=== PATIENT | female | born 1955 | race American Indian/Alaskan Native ===

== ENCOUNTER 2017-06-09 09:21 | Emergency (ER) | payer MEDICARE ==
[2017-06-09 09:22] VITALS: BMI 31.6
[2017-06-09 09:32] VITALS: O2SAT 100
[2017-06-09] MEDS ORDERED: Albuterol-Ipratrop 3 mg / 0.5 (3 ml) UD INH STA (09:33)
[2017-06-09] MEDS ORDERED: Albuterol-Ipratrop 3 mg / 0.5 (3 ml) UD ONE ×2 (09:37→11:23)
--- NOTE | 2017-06-09 10:38 | C.PDOC ---
History Of Present Illness 61 year old female presents to the ED with complaints of exacerbation of asthma for three days with cough and congestion. Patient notes shortness of breath that began last night which prompted visit. She also complaints of left wrist pain. Patient denies trauma, injury, numbness, tingling, swelling, fever, or chest pain. Time Seen by Provider: 06/09/17 10:14 Chief Complaint (Nursing): Shortness Of Breath History Per: Patient History/Exam Limitations: no limitations Onset/Duration Of Symptoms: Days (3 days ), Worse Since (last night ) Current Symptoms Are (Timing): Still Present Quality: "Pain" (left wrist ) Current Respiratory Medications: See Home Med List Associated Symptoms: denies: Fever, Chills, Chest Pain Recent travel outside of the [place]: No Past Medical History Reviewed: Historical Data, Nursing Documentation, Vital Signs Vital Signs: Last Vital Signs Temp 98.6 F 06/09/17 12:29 Pulse 90 06/09/17 12:29 Resp 18 06/09/17 12:29 BP 115/70 06/09/17 12:29 Pulse Ox 100 06/09/17 12:29 - Medical History PMH: Anxiety, Asthma, COPD, Diabetes (Doesn't know the name of medications), Fractures (TOE/NO SURGERY), HTN, Hypercholesterolemia Surgical History: Endoscopy - [facility] Procedures NEBULIZER THERAPY (01/08/04) Family History: States: Unknown Family Hx - Social History Hx Tobacco Use: Yes Hx Alcohol Use: Yes (occassional) Hx Substance Use: No - Immunization History Hx Tetanus Toxoid Vaccination: No Hx Influenza Vaccination: Yes Hx Pneumococcal Vaccination: Yes Review Of Systems Except As Marked, All Systems Reviewed And Found Negative. Constitutional: Negative for: Fever, Chills Respiratory: Positive for: Cough, Shortness of Breath Gastrointestinal: Negative for: Nausea, Vomiting, Abdominal Pain, Diarrhea Musculoskeletal: Positive for: Hand Pain (left wrist pain ) Neurological: Negative for: Weakness, Numbness Physical Exam - Physical Exam Appears: Non-toxic, No Acute Distress Skin: Warm, Dry, No Rash Head: Atraumatic, Normacephalic Eye(s): bilateral: Normal Inspection, PERRL, EOMI Oral Mucosa: Moist Throat: No Erythema, No Exudate Neck: Normal ROM, Supple Chest: Symmetrical, No Deformity Cardiovascular: Rhythm Regular, No Murmur Respiratory: No Accessory Muscle Use, No Rales, No Rhonchi, No Stridor, Wheezing (bilateral expiratory wheeze ) Gastrointestinal/Abdominal: Soft, No Tenderness, No Distention, No Guarding, No Rebound Extremity: Normal ROM (of the left wrist ), No Tenderness, Capillary Refill ( good capillary refill, less than two seconds ), No Deformity, No Swelling Pulses: Left Radial: Normal, Right Radial: Normal Neurological/Psych: Oriented x3, Normal Speech, Normal Cranial Nerves, Normal Motor, Normal Sensation Gait: Steady ED Course And Treatment - Laboratory Results Result Diagrams: 06/09/17 11:21 06/09/17 11:21 O2 Sat by Pulse Oximetry: 100 (RA) Pulse Ox Interpretation: Normal Progress Note: EKG, CXR, and blood work were ordered. Patient was given albuterol treatment at triage. Patient was given Medrol and IV fluids. Medical Decision Making Medical Decision Making: the wrist exam was normal at this time. Patient has a wrist splint already and was instructed to continue using it and take Motrin as well. Patient given instructed to follow up with a Hand surgeon. On re-exam, the patient reports improvement of symptoms. Abdomen is soft, non- tender and the patient is tolerating PO well. Lungs are CTA and heart is RRR. Patient is ambulatory in the ED with steady gait. Follow up with the medical doctor/clinic within 1-2 days without fail. Return if worsened. Disposition - Disposition Referrals: Pratik Block MD [Staff Provider] - Disposition: HOME/ ROUTINE Disposition Time: 12:08 Condition: GOOD Additional Instructions: Follow up with the medical doctor/clinic within 1-2 days without fail. Return if worsened. Prescriptions: Albuterol HFA [Ventolin HFA 90 mcg/actuation (8 g)] 1 puff IH Q6 PRN #1 inhaler PRN Reason: Shortness Of Breath Ibuprofen [Motrin] 600 mg PO TID #21 tab Loratadine [Claritin] 10 mg PO DAILY #10 tab predniSONE [Prednisone] 20 mg PO BID #10 tab Instructions: Asthma (DC) Forms: [employer] (Kuwaiti) - Clinical Impression Clinical Impression: Asthma exacerbation, Wrist pain - PA / OFFSET PRESS OPERATOR APPRENTICE / Resident Statement MD/DO has reviewed & agrees with the documentation as recorded. - Scribe Statement The provider has reviewed the documentation as recorded by the Scribe Melissa Beck All medical record entries made by the Marilu were at my direction and personally dictated by me. I have reviewed the chart and agree that the record accurately reflects my personal performance of the history, physical exam, medical decision making, and the department course for this patient. I have also personally directed, reviewed, and agree with the discharge instructions and disposition.
[2017-06-09] MEDS ORDERED: Sodium Chloride 0.9% 500 ML IV ONE ×2 (10:44→11:23)
--- NOTE | 2017-06-09 10:57 | RAD ---
HISTORY: SOB COMPARISON: Chest x-ray performed 08/27/16 TECHNIQUE: Chest PA and lateral FINDINGS: LUNGS: No focal consolidation. Please note that chest x-ray has limited sensitivity for the detection of pulmonary masses. PLEURA: No significant pleural effusion identified. No definite pneumothorax . CARDIOVASCULAR: Heart size appears within normal limits. Atherosclerotic calcifications of the aortic knob. OSSEOUS STRUCTURES: Degenerative changes of the spine. VISUALIZED UPPER ABDOMEN: Unremarkable. OTHER FINDINGS: None. IMPRESSION: No focal consolidation, significant pleural effusion, or definite pneumothorax identified.
[2017-06-09 11:07] VITALS: RESP 18
[2017-06-09 11:25] LABS: BASO # 0.1 K/uL (0.0-0.2); BASO % 0.9 % (0.0-2.0); EOS # 0.9 K/uL (0.0-0.7); EOS % 12.8 % (0.0-4.0); HEMATOCRIT 35.4 % (34.0-47.0); LYMPH # 1.6 K/uL (1.0-4.3); LYMPH % 21.8 % (20.0-40.0); MEAN CORPUSCULAR HEMOGLOBIN 30.4 pg (27.0-31.0); MEAN CORPUSCULAR HGB CONC 33.8 g/dL (33.0-37.0); MEAN PLATELET VOLUME 7.9 fL (7.2-11.7); MONO # 0.4 K/uL (0.0-0.8); MONO % 5.1 % (0.0-10.0); RED CELL DISTRIBUTION WIDTH 14.5 % (11.5-14.5); WHITE BLOOD COUNT 7.3 K/uL (4.8-10.8)
[2017-06-09] MEDS: Albuterol-Ipratrop 3 mg / 0.5 (3 ml) UD IH SCH ×2 (11:30→11:45)
[2017-06-09 11:47] LABS: CHLORIDE 104 mmol/L (98-107); POTASSIUM 3.9 mmol/L (3.6-5.2); SODIUM 142 mmol/L (132-148)
[2017-06-09 11:49] LABS: ALB/GLOB RATIO 1.5 (1.0-2.1); ALKALINE PHOSPHATASE 45 U/L (38-126); AST/SGOT 15 U/L (14-36); BILIRUBIN,TOTAL 0.4 mg/dL (0.2-1.3); CARBON DIOXIDE 26 mmol/L (22-30); GFR AFRICAN-AMERICAN > 60; TOTAL PROTEIN 6.3 g/dL (6.3-8.3)
[2017-06-09 11:50] LABS: ALT/SGPT 29 U/L (9-52); BLOOD UREA NITROGEN 16 mg/dL (7-17); CALCIUM 8.8 mg/dl (8.6-10.4); GLUCOSE,RANDOM 83 mg/dL (65-105)
[2017-06-09 12:29] VITALS: BP 115/70; PULSE 90; TEMP 98.6
--- NOTE | 2017-06-11 12:03 | CARD ---
APPROVED REPORT EKG Measurement Heart [id number] <Conclusion> nsr Otherwise normal ECG
== END 2017-06-09 12:34 | disposition home or self-care (01) ==
LOC: C.ER 09:21
DX: J45.901 Unspecified asthma with (acute) exacerbation (principal)
CPT/HCPCS: 71020; 80053; 85025; 93005; 96374; 99285; J2930; J7040

== ENCOUNTER 2017-06-21 14:33 | Emergency (ER) | payer MEDICARE ==
[2017-06-21 14:34] VITALS: BMI 31.6
[2017-06-21 14:42] VITALS: TEMP 98.3
[2017-06-21] MEDS ORDERED: Albuterol-Ipratrop 3 mg / 0.5 (3 ml) UD INH STA ×3 (14:45→14:47)
[2017-06-21] MEDS ORDERED: MethylPREDNISolone 40 mg Vial IVP STA (14:45)
[2017-06-21] MEDS ORDERED: Magnesium Sulfate 1 gm in D5W 1 GM/100 ML BAG IVPB SCH (14:45)
[2017-06-21 14:59] LABS: BASO # 0.1 K/uL (0.0-0.2); EOS # 1.1 K/uL (0.0-0.7); EOS % 12.7 % (0.0-4.0); HEMATOCRIT 39.4 % (34.0-47.0); LYMPH # 2.8 K/uL (1.0-4.3); LYMPH % 31.5 % (20.0-40.0); MEAN CELL VOLUME 90.5 fL (81.0-99.0); MEAN CORPUSCULAR HGB CONC 33.1 g/dL (33.0-37.0); MEAN PLATELET VOLUME 7.8 fL (7.2-11.7); MONO # 0.7 K/uL (0.0-0.8); MONO % 7.5 % (0.0-10.0); RED CELL DISTRIBUTION WIDTH 15.2 % (11.5-14.5); WHITE BLOOD COUNT 8.9 K/uL (4.8-10.8)
[2017-06-21] MEDS ORDERED: Magnesium Sulfate 1 gm in D5W 1 GM/100 ML BAG IVPB ONE (15:01)
[2017-06-21 15:10] LABS: CHLORIDE 103 mmol/L (98-107); SODIUM 138 mmol/L (132-148)
[2017-06-21 15:11] LABS: POTASSIUM 4.2 mmol/L (3.6-5.2)
[2017-06-21 15:13] LABS: ALB/GLOB RATIO 1.2 (1.0-2.1); ALKALINE PHOSPHATASE 51 U/L (38-126); ALT/SGPT 31 U/L (9-52); AST/SGOT 22 U/L (14-36); BILIRUBIN,TOTAL 0.4 mg/dL (0.2-1.3); BLOOD UREA NITROGEN 21 mg/dL (7-17); CALCIUM 9.7 mg/dl (8.6-10.4); CARBON DIOXIDE 25 mmol/L (22-30); GFR AFRICAN-AMERICAN > 60; GLUCOSE,RANDOM 71 mg/dL (65-105); TOTAL PROTEIN 7.7 g/dL (6.3-8.3)
[2017-06-21] MEDS ORDERED: Albuterol-Ipratrop 3 mg / 0.5 (3 ml) UD ONE (15:43)
--- NOTE | 2017-06-21 16:02 | C.PDOC ---
History Of Present Illness 61 year old female presents to the ED with asthma like symptoms for approximately the past 4 days. Patient went to her PMD and was prescribed Albuterol and started using it with some relief. Patient has a dry cough along with the asthma like symptoms. She denies fever, nausea, vomit, chest pain, or known sick contacts. Chief Complaint (Nursing): Shortness Of Breath History Per: Patient History/Exam Limitations: no limitations Onset/Duration Of Symptoms: Days Current Symptoms Are (Timing): Still Present Initiating Event: Upper Respiratory Illness Exacerbating Factor(s): Exertion Current Respiratory Medications: Albuterol (Prescribed by PMD) Associated Symptoms: Other (Dry Cough). denies: Fever, Chills, Chest Pain, Ankle/Leg Swelling Reports Recently: Treated By A Physician (PMD) Recent travel outside of the [place]: No Additional History Per: Patient Past Medical History Reviewed: Historical Data, Nursing Documentation, Vital Signs Vital Signs: Last Vital Signs Temp 98.3 F 06/21/17 17:49 Pulse 96 H 06/21/17 17:49 Resp 20 06/21/17 17:49 BP 125/81 06/21/17 17:49 Pulse Ox 96 06/21/17 17:49 - Medical History PMH: Anxiety, Asthma, COPD, Diabetes (Doesn't know the name of medications), Fractures (TOE/NO SURGERY), HTN, Hypercholesterolemia Surgical History: Endoscopy - [facility] Procedures NEBULIZER THERAPY (01/08/04) Family History: States: Unknown Family Hx - Social History Hx Tobacco Use: Yes Hx Alcohol Use: Yes (occassional) Hx Substance Use: No - Immunization History Hx Tetanus Toxoid Vaccination: No Hx Influenza Vaccination: Yes Hx Pneumococcal Vaccination: Yes Review Of Systems Constitutional: Negative for: Fever, Chills Cardiovascular: Negative for: Chest Pain Respiratory: Positive for: Cough (Dry) Gastrointestinal: Negative for: Nausea, Vomiting Physical Exam - Physical Exam Appears: Non-toxic, No Acute Distress Skin: Normal Color, Warm, Dry Head: Atraumatic, Normacephalic Nose: Normal, No Discharge Oral Mucosa: Moist Throat: Normal, No Erythema, No Exudate Neck: Normal, Supple Cardiovascular: Rhythm Regular Respiratory: No Rales, No Rhonchi, Wheezing (Bilateral ) Extremity: No Pedal Edema, No Calf Tenderness, Capillary Refill (less than 2 seconds), No Deformity, No Swelling Neurological/Psych: Oriented x3, Normal Cognition ED Course And Treatment - Laboratory Results Result Diagrams: 06/21/17 14:55 06/21/17 14:55 O2 Sat by Pulse Oximetry: 100 (On RA) Pulse Ox Interpretation: Normal Medical Decision Making Medical Decision Making: Impression : 61 y/o female presents to the ED with asthma like symptoms for the past 4 days. Plan: * Blood work ordered * Peak flow Pre/Post TX bid ordered * Albuterol 3 ml INH, Solu-medrol 125 mg IVP administered. Reevaluation: Patient is feeling better, with mild expiratory wheezing seating on 100 % RA. Patient wishes to be discharged, is instructed to follow with PMD in 2 days or return to the ED if symptoms worsen. Disposition - Disposition Referrals: Louisa Krishna, [Non-Staff] - Disposition: HOME/ ROUTINE Disposition Time: 17:20 Condition: IMPROVED Additional Instructions: Thank you for letting us take care of you today. Your provider was Dr. Benjamin. You were treated for asthma. The emergency medical care you received today was directed at your acute symptoms. If you were prescribed any medication , please fill it and take as directed. It may take several days for your symptoms to resolve. Return to the Emergency Department if your symptoms worsen , do not improve, or if you have any other problems. Please contact your doctor or call one of the physicians/clinics you have been referred to that are listed on the Patient Visit Information form that is included in your discharge packet. Bring any paperwork you were given at discharge with you along with any medications you are taking to your follow up visit. Our treatment cannot replace ongoing medical care by a primary care provider (PCP) outside of the emergency department. Thank you for allowing the [facility] team to be part of your care today. Follow up with your doctor in 2 days for re-evaluation and further management. Prescriptions: Albuterol 0.083% [Albuterol 0.083% Inhal Ashleigh (2.5 mg/3 ml) UD] 2.5 mg IH Q6 PRN #1 unit PRN Reason: wheeze Azithromycin [Zithromax] 250 mg PO DAILY #4 tab predniSONE [Prednisone] 40 mg PO DAILY #10 tab Instructions: Asthma (ED) Forms: [employer] (f[employer]) (Frisian) - Clinical Impression Clinical Impression: Asthma exacerbation - Scribe Statement The provider has reviewed the documentation as recorded by the Scribe Moe Doll All medical record entries made by the Scribe were at my direction and personally dictated by me. I have reviewed the chart and agree that the record accurately reflects my personal performance of the history, physical exam, medical decision making, and the department course for this patient. I have also personally directed, reviewed, and agree with the discharge instructions and disposition.
[2017-06-21 17:50] VITALS: BP 125/81; PULSE 96; RESP 20
--- NOTE | 2017-06-21 18:41 | RAD ---
PROCEDURE: CHEST RADIOGRAPH, 1 VIEW HISTORY: SOB COMPARISON: Comparison is made to 06/09/2017 FINDINGS: LUNGS: No evidence of new infiltrate or consolidation in the lungs. PLEURA: No pneumothorax or pleural fluid seen. CARDIOVASCULAR: Normal. OSSEOUS STRUCTURES: No significant abnormalities. VISUALIZED UPPER ABDOMEN: Normal. OTHER FINDINGS: None. IMPRESSION: No active disease.
[2017-06-21 23:22] VITALS: O2SAT 100
== END 2017-06-21 17:49 | disposition home or self-care (01) ==
LOC: C.ER 14:33
DX: J45.901 Unspecified asthma with (acute) exacerbation (principal)
CPT/HCPCS: 71010; 80053; 85025; 94150; 94640; 96365; 96375; 99285; J2920; J3475

== ENCOUNTER 2017-10-01 08:41 | Emergency (ER) | payer MEDICARE ==
[2017-10-01 08:42] VITALS: BMI 31.6
--- NOTE | 2017-10-01 09:20 | C.PDOC ---
History Of Present Illness 62 Y/O FEMALE WITH HO INTERMIT LBP SP BACK SURGERY 2017, CO ASHTMA EXAC X 1 WEEK. SAW PMD LAST WEEK FOR SAME "BUT HE DIDNT THINK IT WAS THAT BAD". PS USES ALBUTEROL SEASONALLY. WORSE SX TODAY " I THINK I NEED PREDNISONE THIS TIME". PT ALSO CO POSSIBLE UTI. BUT CURRENT PAIN DIF THAN USUAL. PS USUALLY L SCIATICA BUT PAIN NOW R FLANK/SUPRAPUB. +URINARY URGENCY. NO NV. NO RELIEF W BACLOFEN,NO FEVER, CP, SOB. +SMOKER EXAM MILD DIST NONTOXIC HEENT NEG LUNGS +B/L EXP WHEEZE SPEAKING FULL SENTENCES +RETRACTION NO CVAT BACK +R LOWER BACK TEND W SPASM, AROM WO DIFF ABD NEG REMAINDER NEG Time Seen by Provider: 10/01/17 08:58 Chief Complaint (Nursing): Shortness Of Breath History Per: Patient History/Exam Limitations: no limitations Onset/Duration Of Symptoms: Days Current Symptoms Are (Timing): Still Present Past Medical History Reviewed: Historical Data, Nursing Documentation, Vital Signs Vital Signs: Last Vital Signs Temp 98 F 10/01/17 08:49 Pulse 87 10/01/17 08:49 Resp 22 10/01/17 09:21 BP 120/81 10/01/17 08:49 Pulse Ox 97 10/01/17 10:01 - Medical History PMH: Anxiety, Asthma, COPD, Diabetes (Doesn't know the name of medications), Fractures (TOE/NO SURGERY), HTN, Hypercholesterolemia Surgical History: Endoscopy - [facility] Procedures NEBULIZER THERAPY (01/08/04) Family History: States: No Known Family Hx - Social History Hx Tobacco Use: Yes Hx Alcohol Use: Yes (occassional) Hx Substance Use: No - Immunization History Hx Tetanus Toxoid Vaccination: No Hx Influenza Vaccination: Yes Hx Pneumococcal Vaccination: Yes Review Of Systems Constitutional: Negative for: Fever, Chills Cardiovascular: Negative for: Chest Pain, Palpitations Respiratory: Positive for: Cough, Shortness of Breath Gastrointestinal: Negative for: Nausea, Vomiting Skin: Negative for: Rash Physical Exam - Physical Exam Appears: Non-toxic, Other (In mild distress) Skin: Warm, Dry, No Rash Head: Atraumatic, Normacephalic Eye(s): bilateral: Normal Inspection Ear(s): Bilateral: Normal Oral Mucosa: Moist Throat: Normal, No Erythema, No Exudate Neck: Supple Chest: Other ((+)Retractions noted) Cardiovascular: Rhythm Regular Respiratory: No Rales, No Rhonchi, Wheezing (Bilateral expiratory) Gastrointestinal/Abdominal: Soft, No Tenderness, No Guarding, No Rebound Back: No CVA Tenderness, No Decreased ROM, Other (Right lower back tenderness w/ spasm) Extremity: Normal ROM, No Pedal Edema, Capillary Refill (<2 seconds) Neurological/Psych: Oriented x3, Normal Speech (Speaking in full sentences) ED Course And Treatment O2 Sat by Pulse Oximetry: 97 (RA) Pulse Ox Interpretation: Normal Progress - Re-Evaluation Re-evaluation Note: 10/01/17 11:16 WHEEZING RESOLVED. PT ADVISED FU PMD - Data Reviewed Data Reviewed: Lab, Old records Disposition Counseled Patient/Family Regarding: Studies Performed, Diagnosis, Need For Followup, Rx Given - Disposition Referrals: YOUR,PMD [Other] Disposition: HOME/ ROUTINE Disposition Time: 11:16 Condition: IMPROVED Prescriptions: Albuterol HFA [Ventolin HFA 90 mcg/actuation (8 g)] 1 puff IH Q4 #1 inhaler predniSONE [Prednisone] 60 mg PO DAILY #12 tab Instructions: Asthma (ED), Chronic Back Pain (ED) Forms: [employer] (Mosotho) - Clinical Impression Clinical Impression: Asthma exacerbation, Chronic back pain - Scribe Statement The provider has reviewed the documentation as recorded by the Jesibjoe Anderson All medical record entries made by the Scribe were at my direction and personally dictated by me. I have reviewed the chart and agree that the record accurately reflects my personal performance of the history, physical exam, medical decision making, and the department course for this patient. I have also personally directed, reviewed, and agree with the discharge instructions and disposition.
[2017-10-01] MEDS ORDERED: Albuterol-Ipratrop 3 mg / 0.5 (3 ml) UD ONE (09:31)
[2017-10-01] MEDS: Albuterol-Ipratrop 3 mg / 0.5 (3 ml) UD IH SCH ×3 (09:40→10:00)
[2017-10-01 10:39] LABS: SQUAMOUS EPITHIAL < 1 /hpf (0-5); URINE BILIRUBIN NEGATIVE (NEGATIVE); URINE BLOOD NEGATIVE (NEGATIVE); URINE CLARITY Clear (Clear); URINE COLOR Yellow (YELLOW); URINE GLUCOSE (UA) NORMAL (Normal); URINE LEUKOCYTE ESTERASE NEG Leu/uL (Negative); URINE NITRATE NEGATIVE (NEGATIVE); URINE PROTEIN NEGATIVE (NEGATIVE); URINE UROBILINOGEN NORMAL mg/dL (0.2-1.0)
[2017-10-01 11:32] VITALS: BP 139/90; PULSE 82; RESP 18; TEMP 98.1; O2SAT 98
== END 2017-10-01 11:32 | disposition home or self-care (01) ==
LOC: C.ER 08:41
DX: J45.901 Unspecified asthma with (acute) exacerbation (principal); G89.29 Other chronic pain; M54.5 Low back pain

== ENCOUNTER 2017-11-10 10:27 | Emergency (ER) | payer MEDICARE ==
[2017-11-10 10:27] VITALS: BMI 31.6
[2017-11-10 10:33] VITALS: TEMP 97.8
[2017-11-10] MEDS ORDERED: Albuterol-Ipratrop 3 mg / 0.5 (3 ml) UD ONE (10:37)
--- NOTE | 2017-11-10 10:53 | C.PDOC ---
History Of Present Illness 62 yo female w/PMHx of asthma come in for evaluation of cold sx for past few days associated with nasal congestion, runny nose, post-nasal drip, productive cough with greenish sputum. Pt sts, for past few days developed asthma exacerbation associated with chest tightens, wheezing, no improvement with neb tx at home. Otherwise, pt denies high fever, chills, headache, dizziness, neck pain, drooling, dypshagia, dyspnea, SOB, abd. pain, V/D, UTi sx. Ambulate to Ed for evaluation, not in resp. distress. Time Seen by Provider: 11/10/17 10:35 Chief Complaint (Nursing): Shortness Of Breath History Per: Patient Past Medical History Reviewed: Historical Data, Nursing Documentation, Vital Signs Vital Signs: Last Vital Signs Temp 97.8 F 11/10/17 10:33 Pulse 74 11/10/17 13:26 Resp 22 11/10/17 13:30 BP 149/86 11/10/17 13:26 Pulse Ox 98 11/10/17 14:25 - Medical History PMH: Anxiety, Asthma, COPD, Diabetes (Doesn't know the name of medications), Fractures (TOE/NO SURGERY), HTN, Hypercholesterolemia Surgical History: Endoscopy - [facility] Procedures NEBULIZER THERAPY (01/08/04) Family History: States: Unknown Family Hx - Social History Hx Tobacco Use: Yes Hx Alcohol Use: Yes (occassional) Hx Substance Use: No - Immunization History Hx Tetanus Toxoid Vaccination: No Hx Influenza Vaccination: Yes Hx Pneumococcal Vaccination: Yes Review Of Systems Except As Marked, All Systems Reviewed And Found Negative. Constitutional: Negative for: Fever, Chills ENT: Positive for: Nose Discharge, Nose Congestion. Negative for: Ear Pain, Ear Discharge, Throat Pain, Throat Swelling Cardiovascular: Negative for: Chest Pain, Palpitations, Edema, Light Headedness Respiratory: Positive for: Cough, Shortness of Breath, Wheezing Gastrointestinal: Negative for: Nausea, Vomiting, Abdominal Pain, Diarrhea Genitourinary: Negative for: Dysuria Musculoskeletal: Negative for: Neck Pain, Back Pain Skin: Negative for: Rash Neurological: Negative for: Altered Mental Status, Dizziness Physical Exam - Physical Exam Appears: Well, Non-toxic, No Acute Distress Skin: Normal Color, Warm, Dry, No Rash Head: Normacephalic Eye(s): bilateral: PERRL Ear(s): Bilateral: Normal Nose: No Flaring, Discharge (B/L congestion with clear rhinorrhea) Oral Mucosa: Moist, No Drooling Tongue: Normal Appearing Lips: Normal Appearing Throat: No Erythema, No Drooling Neck: Trachea Midline, Supple Cardiovascular: Rhythm Regular Respiratory: No Decreased Breath Sounds, No Accessory Muscle Use, No Rales, No Rhonchi, No Stridor, Wheezing (diffuse B/l expiratory ) Gastrointestinal/Abdominal: Soft, No Tenderness, No Distention, No Guarding Back: No CVA Tenderness Extremity: Normal ROM, No Deformity, No Swelling Neurological/Psych: Oriented x3, Normal Speech ED Course And Treatment - Laboratory Results Result Diagrams: 11/10/17 11:04 11/10/17 11:04 Lab Interpretation: Normal ECG: Interpreted By Me, Viewed By Me ECG Rhythm: Sinus Rhythm Interpretation Of ECG: SR@74/min, NAD, no acute T wave or ST-T changes. O2 Sat by Pulse Oximetry: 98 Pulse Ox Interpretation: Normal - Radiology CXR: Interpreted by Me, Viewed By Me, Read By Radiologist CXR Interpretation: Yes: No Acute Disease Progress Note: Pt was OBS in ED for 4hours and reports moderate improvement in asthma exacerbation sx. PEAK pre-tx- 200 and post-tx- 300. On re-evalution, pt is afebrile, hemodynamicaly stable. Non-toxic. Not in resp. distress. PulseOx 100% RA. Neck: Supple, (-) JVD, (-) carotid bruits B/L. ENT: No acute findings. Lungs: mod improvement in exp.wheezing B/L, BS equal B/L. CVS: (+) S1S2, reg. Abd: benign, (-) gaurding, (-) rebound. Back: (-) CVA tenderness. Blood work review and appears normal, no leukocytosis. EKG- review by ED attending, no acute abnormalities noted. CXR- normal study. results review and discussed with patient. Pt have clinical findings c/w asthma exacerbation vs COPD, chr. bronchitis. Pt advised. Pt ref. to f/u with PMD, Pulm in 2-3 days for re-evaluation. Return to ED if any worsening or new changes. Disposition Counseled Patient/Family Regarding: Diagnosis, Need For Followup - Disposition Referrals: Pratik Block MD [Staff Provider] - Disposition: HOME/ ROUTINE Disposition Time: 14:19 Condition: STABLE Additional Instructions: Take medication as prescribed Encourage fluids Follow up with PMD in 2-3 days for re-evaluation. Return to ED if any worsening or new changes. Prescriptions: Albuterol 0.083% [Albuterol 0.083% Inhal Ashleigh (2.5 mg/3 ml) UD] 2.5 mg IH Q6 #50 neb Benzonatate [Tessalon Perle] 100 mg PO TID #14 capsule Cefdinir [Omnicef] 300 mg PO BID #14 cap Prednisone [Deltasone] 60 mg PO DAILY #9 tablet Instructions: Asthma in Adults, Acute Bronchitis Forms: [facility] (Burmese) - Clinical Impression Clinical Impression: Asthma exacerbation, Bronchitis
[2017-11-10] MEDS ORDERED: Albuterol-Ipratrop 3 mg / 0.5 (3 ml) UD IH STA (10:58)
[2017-11-10 11:13] LABS: BASO # 0.1 K/uL (0.0-0.2); BASO % 1.1 % (0.0-2.0); EOS # 0.6 K/uL (0.0-0.7); EOS % 9.2 % (0.0-4.0); HEMOGLOBIN 12.2 g/dL (11.0-16.0); LYMPH # 2.4 K/uL (1.0-4.3); LYMPH % 34.9 % (20.0-40.0); MEAN CORPUSCULAR HEMOGLOBIN 30.4 pg (27.0-31.0); MEAN CORPUSCULAR HGB CONC 33.4 g/dL (33.0-37.0); MEAN PLATELET VOLUME 8.5 fL (7.2-11.7); MONO # 0.5 K/uL (0.0-0.8); MONO % 7.4 % (0.0-10.0); NEUT # 3.2 K/uL (1.8-7.0); NEUT % 47.4 % (50.0-75.0); RED CELL DISTRIBUTION WIDTH 14.5 % (11.5-14.5); WHITE BLOOD COUNT 6.8 K/uL (4.8-10.8)
[2017-11-10] MEDS ORDERED: Magnesium Sulfate 1 gm in D5W 2 GM/200 ML BAG IVPB ONE (11:13)
[2017-11-10 11:23] LABS: PROTHROMBIN TIME 10.8 SECONDS (9.7-12.2)
[2017-11-10 11:25] LABS: ALB/GLOB RATIO 1.5 (1.0-2.1); ALBUMIN 3.9 g/dL (3.5-5.0); ALT/SGPT 34 U/L (9-52); AST/SGOT 34 U/L (14-36); BLOOD UREA NITROGEN 22 mg/dL (7-17); GFR AFRICAN-AMERICAN > 60; GFR NON-AFRICAN AMERICAN > 60
[2017-11-10] MEDS: Magnesium Sulfate 1 gm in D5W 1 GM/100 ML BAG IVPB SCH ×2 (11:38→12:38)
--- NOTE | 2017-11-10 12:13 | RAD ---
HISTORY: SOB COMPARISON: Chest x-ray performed 06/21/17 TECHNIQUE: Chest PA and lateral FINDINGS: LUNGS: Increased lucencies especially within the bilateral upper lung glaser compatible with underlying emphysema. No focal consolidation. Please note that chest x-ray has limited sensitivity for the detection of pulmonary masses. PLEURA: No significant pleural effusion identified. No definite pneumothorax . CARDIOVASCULAR: Heart size appears within normal limits. Atherosclerotic calcifications of the aorta. OSSEOUS STRUCTURES: Degenerative changes of the spine. VISUALIZED UPPER ABDOMEN: Unremarkable. OTHER FINDINGS: None. IMPRESSION: Probable emphysematous changes. No focal consolidation identified.
[2017-11-10 12:50] LABS: SQUAMOUS EPITHIAL 1 /hpf (0-5); URINE BILIRUBIN NEGATIVE (NEGATIVE); URINE BLOOD NEGATIVE (NEGATIVE); URINE CLARITY Clear (Clear); URINE COLOR Yellow (YELLOW); URINE GLUCOSE (UA) NORMAL (Normal); URINE LEUKOCYTE ESTERASE NEG Leu/uL (Negative); URINE NITRATE NEGATIVE (NEGATIVE); URINE PROTEIN NEGATIVE (NEGATIVE); URINE UROBILINOGEN NORMAL mg/dL (0.2-1.0)
[2017-11-10 13:30] VITALS: BP 149/86; PULSE 74; RESP 22
[2017-11-10 14:22] VITALS: O2SAT 98
--- NOTE | 2017-11-11 21:27 | CARD ---
APPROVED REPORT EKG Measurement Heart [id number] <Conclusion> Normal sinus rhythm Normal ECG
== END 2017-11-10 14:40 | disposition home or self-care (01) ==
LOC: C.ER 10:27
DX: J45.901 Unspecified asthma with (acute) exacerbation (principal); I10 Essential (primary) hypertension; E78.00 Pure hypercholesterolemia, unspecified; E11.9 Type 2 diabetes mellitus without complications; F17.210 Nicotine dependence, cigarettes, uncomplicated
CPT/HCPCS: 71046; 80053; 81001; 84484; 85025; 85610; 85730; 93005; 94640; 96365; 96375; 99285; J2930; J3475

== ENCOUNTER 2018-03-24 09:17 | Emergency (ER) | payer MEDICARE ==
[2018-03-24 09:17] VITALS: BMI 31.6
--- NOTE | 2018-03-24 09:50 | C.PDOC ---
History Of Present Illness PERSIST CHEST CONGESTION X 1 MO. NO IMPROVE A SYMBICORT, HOME NEB. WORSE W HEAVY EXERTION OR HOT WEATHER. NO FEVER, LEG SWELLING, CP. +SMOKER EXAM NARD NONTOXIC LUNGS DEC BS B/L W EXP WHEEZE NO RETRACTIONS SPEAKING FULL SENTENCES NO EDEMA REMAINDER NEG Time Seen by Provider: 03/24/18 09:29 Chief Complaint (Nursing): Cough, Cold, Congestion History Per: Patient History/Exam Limitations: no limitations Onset/Duration Of Symptoms: Days Current Symptoms Are (Timing): Still Present Severity: Moderate Past Medical History Reviewed: Historical Data, Nursing Documentation, Vital Signs Vital Signs: Last Vital Signs Temp 97.9 F 03/24/18 11:19 Pulse 81 03/24/18 11:19 Resp 20 03/24/18 11:19 BP 99/66 L 03/24/18 11:19 Pulse Ox 100 03/24/18 11:19 - Medical History PMH: Anxiety, Asthma, COPD, Diabetes (Doesn't know the name of medications), Fractures (TOE/NO SURGERY), HTN, Hypercholesterolemia Surgical History: Endoscopy - [facility] Procedures NEBULIZER THERAPY (01/08/04) Family History: States: No Known Family Hx - Social History Hx Tobacco Use: Yes Hx Alcohol Use: Yes (occassional) Hx Substance Use: No - Immunization History Hx Tetanus Toxoid Vaccination: No Hx Influenza Vaccination: Yes Hx Pneumococcal Vaccination: Yes Review Of Systems Except As Marked, All Systems Reviewed And Found Negative. Constitutional: Negative for: Fever, Chills Cardiovascular: Positive for: Other (chest congestion). Negative for: Chest Pain Physical Exam - Physical Exam Appears: Non-toxic, Other (NARD) Skin: Normal Color, Warm, Dry Head: Atraumatic, Normacephalic Eye(s): bilateral: Normal Inspection Respiratory: Decreased Breath Sounds (bilaterally), Wheezing (expiratory wheezing), Other (no retractions, no edema, speaking full sentences) Neurological/Psych: Oriented x3, Normal Speech ED Course And Treatment O2 Sat by Pulse Oximetry: 100 (RA) Pulse Ox Interpretation: Normal - Radiology CXR: Interpreted by Me CXR Interpretation: Yes: No Acute Disease Medical Decision Making Medical Decision Making: Plan: --CXR --Albuterol --Nebulizer --Prednisone Disposition Counseled Patient/Family Regarding: Studies Performed, Diagnosis, Need For Followup, Rx Given, Smoking Cessation - Disposition Referrals: YOUR,PMD [Other] Disposition: HOME/ ROUTINE Disposition Time: 12:30 Condition: IMPROVED Prescriptions: Albuterol HFA [Ventolin HFA 90 mcg/actuation (8 g)] 1 puff IH Q4 #1 inhaler Budesonide/Formoterol Fumarate [Symbicort] 1 aer IH BID #1 aer predniSONE [Prednisone] 60 mg PO DAILY #12 tab Instructions: Asthma, Adult (DC) Forms: [employer] (Romanian) - Clinical Impression Clinical Impression: Asthma exacerbation - Scribe Statement The provider has reviewed the documentation as recorded by the Scribe Chava Orozco Provider Attestation: All medical record entries made by the Scribe were at my direction and personally dictated by me. I have reviewed the chart and agree that the record accurately reflects my personal performance of the history, physical exam, medical decision making, and the department course for this patient. I have also personally directed, reviewed, and agree with the discharge instructions and disposition.
[2018-03-24] MEDS ORDERED: Albuterol-Ipratrop 3 mg / 0.5 (3 ml) UD ONE ×2 (10:09→10:40)
[2018-03-24] MEDS: Albuterol-Ipratrop 3 mg / 0.5 (3 ml) UD IH SCH ×3 (10:10→10:55)
--- NOTE | 2018-03-24 10:16 | RAD ---
Date of service: 03/24/2018 HISTORY: COUGH COMPARISON: Chest radiograph dated 11/10/2017. TECHNIQUE: Chest PA and lateral FINDINGS: LUNGS: No active pulmonary disease. PLEURA: No significant pleural effusion identified. No pneumothorax apparent. CARDIOVASCULAR: Atherosclerotic aortic calcifications. Cardiomediastinal silhouette stably prominent. OSSEOUS STRUCTURES: Unchanged. VISUALIZED UPPER ABDOMEN: Normal. OTHER FINDINGS: None. IMPRESSION: No active disease.
[2018-03-24 11:20] VITALS: PULSE 81; RESP 20
[2018-03-24 12:36] VITALS: BP 108/72; TEMP 98.5; O2SAT 95
== END 2018-03-24 12:38 | disposition home or self-care (01) ==
LOC: C.ER 09:17
DX: J45.901 Unspecified asthma with (acute) exacerbation (principal); E11.9 Type 2 diabetes mellitus without complications; E78.00 Pure hypercholesterolemia, unspecified; I10 Essential (primary) hypertension; Z72.0 Tobacco use

== ENCOUNTER 2018-04-22 09:39 | Emergency (ER) | payer MEDICARE ==
[2018-04-22 09:39] VITALS: BMI 31.6
[2018-04-22 09:48] VITALS: BP 164/92; PULSE 76; RESP 20; TEMP 98.4; O2SAT 98
--- NOTE | 2018-04-22 10:23 | C.PDOC ---
History Of Present Illness <Costa Barrientos - Last Filed: 04/22/18 10:29> <Brennan Benjamin DO - Last Filed: 04/22/18 18:01> CC: Left wrist pain HPI: Patient is a 62 year old AA female with past medical history of asthma, who presents to the ED with left wrist joint pain that has been ongoing for a year. Patient states that her pain has increased in intensity over the years and has noted increase numbness/tingling and heavy sensation with upawrd radiation to her left arm for the past few days. Patient does wear a brace on and off. Patient denies any imaging work-up by PMD. Patient has been taking Motrin, which seems to provide minimal relief. Patient admits to limited range of motion at the wrist joint and unable to carry her purse with her left hand. Patient denies any new trauma. (Costa Barrientos) History Per: Patient History/Exam Limitations: no limitations Onset/Duration Of Symptoms: Days, Gradual, Persistent Severity: Moderate Pain Scale Rating Of: 8 Location: Left wrist joint Quality: Numbness/Tingling/heaviness Reports Recent Trauma: Denies Recent travel outside of the [place]: No <Costa Barrientos - Last Filed: 04/22/18 10:29> <Brennan Benjamin DO - Last Filed: 04/22/18 18:01> Time Seen by Provider: 04/22/18 09:50 Chief Complaint (Nursing): Upper Extremity Problem/Injury Past Medical History - Medical History PMH: Anxiety, Asthma, COPD, Diabetes (Doesn't know the name of medications), Fractures (toe), HTN, Hypercholesterolemia Surgical History: Endoscopy Family History: States: Unknown Family Hx - Social History Hx Tobacco Use: Yes Hx Alcohol Use: Yes (occassional) Hx Substance Use: No - Immunization History Hx Tetanus Toxoid Vaccination: No Hx Influenza Vaccination: Yes Hx Pneumococcal Vaccination: Yes <Costa Barrientos - Last Filed: 04/22/18 10:29> Vital Signs: Last Vital Signs Temp 98.4 F 04/22/18 09:43 Pulse 76 04/22/18 09:43 Resp 20 04/22/18 09:43 BP 164/92 H 04/22/18 09:43 Pulse Ox 98 04/22/18 10:38 - [facility] Procedures NEBULIZER THERAPY (01/08/04) Review Of Systems Constitutional: Negative for: Fever, Chills, Weakness, Malaise Musculoskeletal: Positive for: Arm Pain, Hand Pain, Other (Left wrist joint pain that is worst with all motion ). Negative for: Neck Pain, Back Pain, Leg Pain, Foot Pain Neurological: Positive for: Numbness (Left 4 finger numbness/tingling ) <Costa Barrientos - Last Filed: 04/22/18 10:29> Physical Exam - Physical Exam Appears: Well Skin: Normal Color Head: Atraumatic, Normacephalic, No Swelling, No Abrasion, No Laceration Eye(s): bilateral: EOMI Neck: Normal ROM Cardiovascular: Rhythm Regular Respiratory: Normal Breath Sounds Gastrointestinal/Abdominal: Bowel Sounds, Soft Extremity: Left: Limited ROM To Joint (Wrist joint, Limited ROM in flexion, extension, ulnar and radial deviation. Positive phalen's test on the left hand ) <Costa Barrientos - Last Filed: 04/22/18 10:29> ED Course And Treatment O2 Sat by Pulse Oximetry: 98 <Costa Barrientos - Last Filed: 04/22/18 10:29> Disposition - Disposition Disposition Time: 10:20 <Costa Barrientos - Last Filed: 04/22/18 10:29> - Disposition Disposition Time: 10:10 <Brennan Benjamin DO - Last Filed: 04/22/18 18:01> - Disposition Referrals: [facility] Bree Krishna, [Non-Staff] - Disposition: HOME/ ROUTINE Condition: GOOD Additional Instructions: ZENY JOHNSON, thank you for letting us take care of you today. Your provider was Brennan Benjamin DO and you were treated for LT WRIST PAIN. The emergency medical care you received today was directed at your acute symptoms. If you were prescribed any medication, please fill it and take as directed. It may take several days for your symptoms to resolve. Return to the Emergency Department if your symptoms worsen, do not improve, or if you have any other problems. Please contact your doctor or call one of the physicians/clinics you have been referred to that are listed on the Patient Visit Information form that is included in your discharge packet. Bring any paperwork you were given at discharge with you along with any medications you are taking to your follow up visit. Our treatment cannot replace ongoing medical care by a primary care provider outside of the emergency department. Thank you for allowing the [facility] team to be part of your care today. Please follow up with your primary doctor for this chronic wrist pain for re- evaluation and further management. Prescriptions: Ibuprofen [Motrin] 600 mg PO Q6 PRN #20 tab PRN Reason: Pain, Moderate (4-7) Instructions: Chronic Pain (DC) Forms: [facility] (Micronesian) - Clinical Impression Clinical Impression: Pain in joint of left wrist - PA / HAIRSPRING STAKER / Resident Statement / has reviewed & agrees with the documentation as recorded. / has examined the patient and agrees with the treatment plan. <Brennan Benjamin DO - Last Filed: 04/22/18 18:01>
== END 2018-04-22 10:19 | disposition home or self-care (01) ==
LOC: C.ER 09:39
DX: M25.532 Pain in left wrist (principal)

== ENCOUNTER 2018-04-29 15:51 | Emergency (ER) | payer MEDICARE ==
[2018-04-29 15:51] VITALS: BMI 31.6
[2018-04-29] MEDS ORDERED: Albuterol-Ipratrop 3 mg / 0.5 (3 ml) UD ONE ×2 (16:02→16:28)
[2018-04-29 16:05] VITALS: RESP 20
[2018-04-29] MEDS ORDERED: Albuterol-Ipratrop 3 mg / 0.5 (3 ml) UD INH STA (16:05)
--- NOTE | 2018-04-29 16:26 | C.PDOC ---
History Of Present Illness 62 year old female presents to the ER with a complaint of asthma exacerbation that has been worsening over the past 3 days. Patient is complaint with her meds but reports not improvement. Patient is also complaining of exacerbation of her chronic left wrist pain, she was seen on 04/22/18 for the same pain. She has limited relief with NSAIDs, last use was 09:00. Denies nausea, vomiting, or chest pain. Time Seen by Provider: 04/29/18 16:19 Chief Complaint (Nursing): Shortness Of Breath History Per: Patient History/Exam Limitations: no limitations Onset/Duration Of Symptoms: Days Current Symptoms Are (Timing): Still Present Associated Symptoms: Dyspnea Preciptating Factors: None Recent travel outside of the [place]: No Past Medical History Reviewed: Historical Data, Nursing Documentation, Vital Signs Vital Signs: Last Vital Signs Temp 98.7 F 04/29/18 18:11 Pulse 84 04/29/18 18:11 Resp 20 04/29/18 18:11 BP 151/84 H 04/29/18 18:11 Pulse Ox 97 04/29/18 18:25 - Medical History PMH: Anxiety, Asthma, COPD, Diabetes (Doesn't know the name of medications), Fractures (toe), HTN, Hypercholesterolemia Surgical History: Endoscopy - [facility] Procedures NEBULIZER THERAPY (01/08/04) Family History: States: Unknown Family Hx - Social History Hx Tobacco Use: Yes Hx Alcohol Use: Yes (occassional) Hx Substance Use: No - Immunization History Hx Tetanus Toxoid Vaccination: No Hx Influenza Vaccination: Yes Hx Pneumococcal Vaccination: Yes Review Of Systems Except As Marked, All Systems Reviewed And Found Negative. Constitutional: Negative for: Fever, Chills Cardiovascular: Negative for: Chest Pain, Palpitations Respiratory: Positive for: Shortness of Breath, SOB with Excertion Gastrointestinal: Negative for: Nausea, Vomiting Neurological: Negative for: Weakness, Numbness Physical Exam - Physical Exam Appears: Non-toxic Skin: Normal Color, Warm, Dry Head: Atraumatic, Normacephalic Eye(s): bilateral: Normal Inspection Oral Mucosa: Moist Neck: Normal, Supple Chest: Symmetrical, No Tenderness Cardiovascular: Rhythm Regular Respiratory: Accessory Muscle Use, Wheezing (diffuse expiratory) Gastrointestinal/Abdominal: Soft, No Tenderness Back: No CVA Tenderness Extremity: No Tenderness, Capillary Refill (<2 seconds), No Deformity, No Swelling, Other (Barry wrap on left wrist.) Pulses: Left Radial: Normal, Right Radial: Normal Neurological/Psych: Oriented x3, Normal Speech, Normal Motor, Normal Sensation ED Course And Treatment - Laboratory Results Result Diagrams: 04/29/18 16:44 04/29/18 16:44 O2 Sat by Pulse Oximetry: 97 (Room air) Pulse Ox Interpretation: Normal - Radiology CXR: Interpreted by Me CXR Interpretation: Yes: No Acute Disease Progress - Data Reviewed Data Reviewed: Lab, Diagnostic imaging, Old records Medical Decision Making Medical Decision Making: Plan: * EKG * Blood work * CXR * Duoneb * Solumedrol * Toradol Patient is seeing PMD tomorrow and is pending appointment next week with hand specialist for her wrist pain. Disposition Counseled Patient/Family Regarding: Diagnosis, Need For Followup, Rx Given - Disposition Referrals: YOUR,PMD [Other] Disposition: HOME/ ROUTINE Disposition Time: 18:24 Condition: IMPROVED Prescriptions: Benzonatate [Tessalon Perles] 200 mg PO TID PRN #15 sgl PRN Reason: Cough predniSONE [Prednisone] 60 mg PO DAILY #12 tab Instructions: Asthma, Adult (DC) Forms: [employer] (Yemeni) - Clinical Impression Clinical Impression: Asthma exacerbation, Wrist pain - Scribe Statement The provider has reviewed the documentation as recorded by the Scribe Florentino Grace All medical record entries made by the Scribe were at my direction and personally dictated by me. I have reviewed the chart and agree that the record accurately reflects my personal performance of the history, physical exam, medical decision making, and the department course for this patient. I have also personally directed, reviewed, and agree with the discharge instructions and disposition.
[2018-04-29] MEDS ORDERED: MethylPREDNISolone 40 mg Vial ONE (16:29)
[2018-04-29] MEDS: Albuterol-Ipratrop 3 mg / 0.5 (3 ml) UD IH SCH ×3 (16:37→16:50)
--- NOTE | 2018-04-29 16:50 | RAD ---
HISTORY: SOB COMPARISON: Chest x-ray performed 03/24/18 TECHNIQUE: Chest, one view. FINDINGS: LUNGS: Mild bibasilar atelectasis. Please note that chest x-ray has limited sensitivity for the detection of pulmonary masses. PLEURA: No significant pleural effusion identified. No definite pneumothorax . CARDIOVASCULAR: Heart size appears top normal. OSSEOUS STRUCTURES: Degenerative changes. VISUALIZED UPPER ABDOMEN: Unremarkable. OTHER FINDINGS: None. IMPRESSION: Mild bibasilar atelectasis.
[2018-04-29 16:56] LABS: BASO # 0.1 K/uL (0.0-0.2); BASO % 1.1 % (0.0-2.0); EOS # 0.3 K/uL (0.0-0.7); HEMOGLOBIN 12.4 g/dL (11.0-16.0); LYMPH # 2.4 K/uL (1.0-4.3); LYMPH % 35.4 % (20.0-40.0); MEAN CELL VOLUME 90.8 fL (81.0-99.0); MEAN CORPUSCULAR HEMOGLOBIN 29.8 pg (27.0-31.0); MEAN CORPUSCULAR HGB CONC 32.8 g/dL (33.0-37.0); MEAN PLATELET VOLUME 8.7 fL (7.2-11.7); MONO # 0.5 K/uL (0.0-0.8); MONO % 7.5 % (0.0-10.0); NEUT # 3.5 K/uL (1.8-7.0); NRBC % 0.1 % (0.0-2.0); RBC 4.18 Mil/uL (3.80-5.20); RED CELL DISTRIBUTION WIDTH 14.9 % (11.5-14.5); WHITE BLOOD COUNT 6.8 K/uL (4.8-10.8)
[2018-04-29 17:11] LABS: BLOOD UREA NITROGEN 25 mg/dL (7-17); CALCIUM 9.2 mg/dl (8.6-10.4); GFR NON-AFRICAN AMERICAN > 60
[2018-04-29 18:12] VITALS: BP 151/84; PULSE 84; TEMP 98.7
[2018-04-29 18:25] VITALS: O2SAT 97
--- NOTE | 2018-05-01 02:06 | CARD ---
APPROVED REPORT Date of service: 04/29/2018 EKG Measurement Heart [id number] <Conclusion> Normal sinus rhythm Normal ECG
== END 2018-04-29 18:36 | disposition home or self-care (01) ==
LOC: C.ER 15:51
DX: J45.901 Unspecified asthma with (acute) exacerbation (principal); M25.532 Pain in left wrist
CPT/HCPCS: 71045; 80048; 85025; 93005; 94150; 94640; 96374; 96375; 99284; J1885; J2930

== ENCOUNTER 2018-05-01 15:37 | Inpatient (IN) | payer MEDICARE ==
[2018-05-01 15:52] VITALS: BMI 34.2
[2018-05-01] MEDS ORDERED: Albuterol-Ipratrop 3 mg / 0.5 (3 ml) UD ONE ×3 (16:02→19:29)
[2018-05-01] MEDS ORDERED: Albuterol-Ipratrop 3 mg / 0.5 (3 ml) UD INH STA (16:23)
--- NOTE | 2018-05-01 16:26 | C.PDOC ---
History Of Present Illness <Lala Beltre - Last Filed: 05/01/18 21:01> <Brennan Benjamin DO - Last Filed: 05/01/18 23:48> Patient is a 62 year old female with history of asthma who presents for shortness of breath that worsened immediately prior to arrival. She states she was walking after she had a recent X ray done and she became very short of breath. She states she has had a cough productive of sputum for a week. She was seen here recently 3 days ago for similar symptoms and was discharged home with Prednisone and Tessalon Perles. She states she was taking her medications as prescribed. She was seen by her PMD Dr. Block earlier today who refilled script for her inhalers, nebulizer vials, and gave her a script for a Prednisone taper. She denies fever, chills, headache, lightheadedness, abdominal pain, nausea, vomiting, diarrhea, leg pain. (Lala Beltre) <Lala Beltre - Last Filed: 05/01/18 21:01> <Brennan Benjamin DO - Last Filed: 05/01/18 23:48> Time Seen by Provider: 05/01/18 15:59 Chief Complaint (Nursing): Shortness Of Breath Past Medical History - Medical History PMH: Anxiety, Asthma, COPD, Diabetes (Doesn't know the name of medications), Fractures (toe), HTN, Hypercholesterolemia Surgical History: Endoscopy Family History: States: Unknown Family Hx - Social History Hx Tobacco Use: Yes Hx Alcohol Use: Yes (occassional) Hx Substance Use: No - Immunization History Hx Tetanus Toxoid Vaccination: No Hx Influenza Vaccination: Yes Hx Pneumococcal Vaccination: Yes <Lala Beltre - Last Filed: 05/01/18 21:01> Vital Signs: Last Vital Signs Temp 98 F 05/01/18 22:43 Pulse 88 05/01/18 22:43 Resp 20 05/01/18 22:43 BP 160/87 H 05/01/18 22:43 Pulse Ox 95 05/01/18 22:43 - [facility] Procedures NEBULIZER THERAPY (01/08/04) Review Of Systems Constitutional: Negative for: Fever, Sweats Cardiovascular: Negative for: Chest Pain, Palpitations Respiratory: Positive for: Cough, Shortness of Breath Gastrointestinal: Negative for: Nausea, Vomiting, Abdominal Pain, Diarrhea Genitourinary: Negative for: Dysuria, Frequency <Lala Beltre - Last Filed: 05/01/18 21:01> Physical Exam - Physical Exam Appears: Other (Appears short of breath, not able to speak in full sentences ) Skin: Warm, Dry Head: Atraumatic, Normacephalic Eye(s): bilateral: EOMI Oral Mucosa: Moist Cardiovascular: Rhythm Regular, No Murmur Respiratory: No Rales, No Rhonchi, No Stridor, Wheezing (Diffuse expiratory wheezing in all lung glaser) Gastrointestinal/Abdominal: Bowel Sounds, Soft, No Tenderness Pulses: Left Dorsalis Pedis: Normal, Right Dorsalis Pedis: Normal Neurological/Psych: Oriented x3 <Lala Beltre - Last Filed: 05/01/18 21:01> ED Course And Treatment - Laboratory Results Result Diagrams: 05/01/18 16:54 05/01/18 16:54 O2 Sat by Pulse Oximetry: 96 - Radiology CXR: Read By Radiologist (no acute disease) <Lala Beltre - Last Filed: 05/01/18 21:01> - Laboratory Results Result Diagrams: 05/01/18 16:54 05/01/18 16:54 <Brennan Benjamin DO - Last Filed: 05/01/18 23:48> Medical Decision Making <Lala Beltre - Last Filed: 05/01/18 21:01> <Brennan Benjamin DO - Last Filed: 05/01/18 23:48> Medical Decision Making: CXR: no acute pulmonary disease. CBC, CMP within normal limits. Patient treated with Duonebs, Solumedrol 125mg IVP, Mag sulfate 1g IV 1945 On repeat evaluation, patient states she feels better. She is talking on the phone, speaking in full sentences without difficulty. However, on attempt to walk to the bathroom, patient became very short of breath and O2 sat dropped to 87% and she began to wheeze and cough. Plan was discussed with patient to admit patient for further treatment, who was agreeable with plan to stay. Case discussed with Dr. Block, who agreed to admit. (Lala Beltre ) Disposition - Disposition Disposition Time: 19:15 <Lala Beltre - Last Filed: 05/01/18 21:01> - Disposition Disposition Time: 18:30 <Brennan Benjamin DO - Last Filed: 05/01/18 23:48> - Disposition Disposition: HOSPITALIZED Condition: STABLE - Clinical Impression Clinical Impression: Asthma exacerbation - PA / ADDICTION PROFESSIONAL / Resident Statement VASILIY has reviewed & agrees with the documentation as recorded. / has examined the patient and agrees with the treatment plan. <Brennan Benjamin DO - Last Filed: 05/01/18 23:48>
[2018-05-01] MEDS ORDERED: Magnesium Sulfate 1 gm in D5W 1 GM/100 ML BAG IVPB ONE ×2 (16:38→18:33)
--- NOTE | 2018-05-01 16:49 | RAD ---
Date of service: 05/01/2018 PROCEDURE: CHEST RADIOGRAPH, 1 VIEW HISTORY: SOB COMPARISON: None available. FINDINGS: LUNGS: Clear. PLEURA: No pneumothorax or pleural fluid seen. CARDIOVASCULAR: Normal. OSSEOUS STRUCTURES: No significant abnormalities. VISUALIZED UPPER ABDOMEN: Normal. OTHER FINDINGS: None. IMPRESSION: No active disease.
[2018-05-01] MEDS: Magnesium Sulfate 1 gm in D5W 1 GM/100 ML BAG IVPB SCH ×2 (16:54→18:32)
[2018-05-01 16:59] LABS: BASO % 0.4 % (0.0-2.0); EOS % 0.2 % (0.0-4.0); HEMOGLOBIN 11.9 g/dL (11.0-16.0); LYMPH # 1.9 K/uL (1.0-4.3); LYMPH % 15.1 % (20.0-40.0); MEAN CELL VOLUME 90.2 fL (81.0-99.0); MEAN CORPUSCULAR HEMOGLOBIN 29.7 pg (27.0-31.0); MEAN CORPUSCULAR HGB CONC 32.9 g/dL (33.0-37.0); MEAN PLATELET VOLUME 8.6 fL (7.2-11.7); MONO # 0.5 K/uL (0.0-0.8); MONO % 3.5 % (0.0-10.0); NEUT # 10.4 K/uL (1.8-7.0); NEUT % 80.8 % (50.0-75.0); RED CELL DISTRIBUTION WIDTH 15.1 % (11.5-14.5); WHITE BLOOD COUNT 12.9 K/uL (4.8-10.8)
[2018-05-01 17:12] LABS: ALB/GLOB RATIO 1.8 (1.0-2.1); ALBUMIN 4.5 g/dL (3.5-5.0); ALT/SGPT 24 U/L (9-52); AST/SGOT 22 U/L (14-36); BLOOD UREA NITROGEN 24 mg/dL (7-17); CALCIUM 9.6 mg/dl (8.6-10.4); GFR NON-AFRICAN AMERICAN > 60
[2018-05-02] MEDS: Albuterol 0.083% Inhal Sol (2.5 mg/3 mL) UD INH SCH ×4 (01:23→19:48)
[2018-05-02] MEDS: MethylPREDNISolone 40 mg Vial IV SCH ×4 (06:29→21:46)
[2018-05-02] MEDS: (Novolog) Insulin Aspart, Recombinant 100 u/ml 10 ml vial SC SCH ×4 (07:16→21:46)
[2018-05-02] MEDS: Promethazine 6.25 MG/5 ML CUP PO PRN ×3 (09:14→21:47)
[2018-05-02] MEDS: Pantoprazole 40 mg EC Tab PO SCH (09:15)
--- NOTE | 2018-05-02 15:27 | CP.PCM.CON ---
History of Present Illness - History of Present Illness History of Present Illness: CHART REVIEWED. PT SEEN AND EXAMINED., 62 YO B FEMALE WITH A HX COPD, HTN, DM, OBESITY, HYPERLIPIDEMIA, ADM 05/01/18 [facility] INCREASED MOD-SEVERE SOB WITH MIN EXERTION X 1 WK., . PT SEEN IN ER AND RELEASED 4 DAYS AGO., ON PO PRED AND TESSALON., NO RELIEF WITH HOME NEB 4-5X/ DAY. SMOKING LESS. Review of Systems - Review of Systems All systems: reviewed and no additional remarkable complaints except - Constitutional Constitutional: absent: Fever - EENT Eyes: absent: Change in Vision Ears: absent: Ear Pain Nose/Mouth/Throat: absent: Sinus Pain, Sinus Pressure - Cardiovascular Cardiovascular: absent: Chest Pain - Respiratory Respiratory: Cough, Dyspnea, Dyspnea on Exertion, Wheezing, Chest Congestion, Pain with Coughing. absent: Excessive Mucous Production - Gastrointestinal Gastrointestinal: absent: Diarrhea, Nausea, Vomiting - Genitourinary Genitourinary: absent: Difficulty Urinating - Musculoskeletal Musculoskeletal: Back Pain - Integumentary Integumentary: absent: Rash - Neurological Neurological: absent: Confusion, Focal Weakness - Psychiatric Psychiatric: absent: Anxiety, Panic Attacks - Endocrine Endocrine: absent: Palpitations - Hematologic/Lymphatic Hematologic: absent: Easy Bruising Past Patient History - Infectious Disease Hx of Infectious Diseases: None - Past Medical History & Family History Past Medical History?: Yes Past Family History: Reviewed and not pertinent Pertinent Family History: +HTN +DM - Past Social History Smoking Status: Current Some Days Smoker Alcohol: None Drugs: Denies - CARDIAC Hx Hypercholesterolemia: Yes Hx Hypertension: Yes - PULMONARY Hx Asthma: Yes Hx Bronchitis: Yes Hx Chronic Obstructive Pulmonary Disease (COPD): Yes Hx Respiratory Tract Infection: Yes - NEUROLOGICAL Hx Neurological Disorder: No - HEENT Hx HEENT Problems: Yes Hx Sinusitis: Yes - RENAL Hx Chronic Kidney Disease: No - ENDOCRINE/METABOLIC Hx Endocrine Disorders: Yes Hx Diabetes Mellitus Type 2: Yes - HEMATOLOGICAL/ONCOLOGICAL Hx Blood Disorders: No - INTEGUMENTARY Hx Dermatological Problems: No - MUSCULOSKELETAL/RHEUMATOLOGICAL Hx Back Pain: Yes Hx Falls: No Hx Fractures: Yes (toe) - GASTROINTESTINAL Hx Gastrointestinal Disorders: Yes Hx Gastritis: Yes - GENITOURINARY/GYNECOLOGICAL Hx Genitourinary Disorders: No - PSYCHIATRIC Hx Anxiety: Yes Hx Substance Use: No - SURGICAL HISTORY Hx Surgeries: Yes Hx Orthopedic Surgery: Yes - ANESTHESIA Hx Anesthesia: Yes Hx Anesthesia Reactions: No Hx Malignant Hyperthermia: No Meds Allergies/Adverse Reactions: Allergies Allergy/AdvReac Type Severity Reaction Status Date / Time No Known Allergies Allergy Verified 05/01/18 15:49 - Medications Medications: Current Medications Albuterol Sulfate (Albuterol 0.083% Inhal Ashleigh (2.5 Mg/3 Ml) Ud) 2.5 mg INH RQ6 [facility] Last Admin: 05/02/18 13:20 Dose: 2.5 mg Azithromycin (Zithromax) 500 mg PO DAILY PAN PRN Reason: Protocol Last Admin: 05/02/18 09:16 Dose: 500 mg Benzonatate (Tessalon Perles) 200 mg PO TID PRN PRN Reason: Cough Last Admin: 05/02/18 09:16 Dose: 200 mg Ergocalciferol (Drisdol 50,000 Intl Units Cap) 1 cap PO QWK [facility] Heparin Sodium (Porcine) (Heparin) 5,000 units SC Q12 [facility] Last Admin: 05/02/18 09:15 Dose: 5,000 units Hydrochlorothiazide (Microzide) 12.5 mg PO DAILY [facility] Last Admin: 05/02/18 09:15 Dose: 12.5 mg Ibuprofen (Motrin Tab) 600 mg PO TID PRN PRN Reason: Pain, moderate (4-7) Insulin Aspart (Novolog) 0 unit SC ACHS [facility] PRN Reason: Protocol Last Admin: 05/02/18 12:32 Dose: 1 unit Lisinopril (Zestril) 20 mg PO DAILY [facility] Last Admin: 05/02/18 09:15 Dose: 20 mg Loratadine (Claritin) 10 mg PO DAILY [facility] Metformin HCl (Glucophage) 500 mg PO DAILY [facility] Last Admin: 05/02/18 09:14 Dose: 500 mg Methylprednisolone (Solu-Medrol) 40 mg IV Q8 [facility] Last Admin: 05/02/18 14:24 Dose: Not Given Montelukast Sodium (Singulair) 10 mg PO HS [facility] Pantoprazole Sodium (Protonix Ec Tab) 40 mg PO DAILY [facility] Last Admin: 05/02/18 09:15 Dose: 40 mg Promethazine HCl (Phenergan Syrup) 6.25 mg PO Q6H PRN PRN Reason: Cough Last Admin: 05/02/18 09:14 Dose: 6.25 mg Rosuvastatin Calcium (Crestor) 5 mg PO HS PAN Physical Exam - Constitutional Appears: Non-toxic - Head Exam Head Exam: ATRAUMATIC, NORMOCEPHALIC - Eye Exam Eye Exam: EOMI, Normal appearance - ENT Exam ENT Exam: Mucous Membranes Moist - Neck Exam Neck exam: Positive for: Normal Inspection - Respiratory Exam Respiratory Exam: Prolonged Expiratory Phase, Wheezes. absent: Accessory Muscle Use, Stridor - Cardiovascular Exam Cardiovascular Exam: RRR, +S1, +S2 - GI/Abdominal Exam GI & Abdominal Exam: Soft. absent: Tenderness - Rectal Exam Rectal Exam: Deferred - Extremities Exam Extremities exam: Negative for: calf tenderness, pedal edema - Back Exam Back exam: absent: CVA tenderness (L), CVA tenderness (R) - Neurological Exam Neurological exam: Alert, CN II-XII Intact, Normal Gait, Oriented x3 - Psychiatric Exam Psychiatric exam: Normal Mood - Skin Skin Exam: Intact Results - Vital Signs Recent Vital Signs: Last Vital Signs Temp 97.7 F 05/02/18 08:26 Pulse 58 L 05/02/18 08:26 Resp 20 05/02/18 08:26 BP 168/92 H 05/02/18 08:26 Pulse Ox 98 05/02/18 14:42 - Labs Result Diagrams: 05/01/18 16:54 05/01/18 16:54 Labs: Laboratory Results - last 24 hr 05/01/18 05/01/18 05/02/18 16:54 16:54 06:00 WBC 12.9 H D RBC 4.00 Hgb 11.9 Hct 36.1 MCV 90.2 MCH 29.7 MCHC 32.9 L RDW 15.1 H Plt Count 310 MPV 8.6 Neut % (Auto) 80.8 H Lymph % (Auto) 15.1 L [place] % (Auto) 3.5 Eos % (Auto) 0.2 Baso % (Auto) 0.4 Neut # (Auto) 10.4 H Lymph # (Auto) 1.9 [place] # (Auto) 0.5 Eos # (Auto) 0.0 Baso # (Auto) 0.0 Sodium 147 Potassium 3.8 Chloride 107 Carbon Dioxide 29 Anion Gap 15 BUN 24 H Creatinine 0.7 Est GFR ( Amer) > 60 Est GFR (Non-Af Amer) > 60 POC Glucose (mg/dL) 142 H Random Glucose 158 H Calcium 9.6 Total Bilirubin 0.3 AST 22 ALT 24 Alkaline Phosphatase 46 Total Protein 7.0 Albumin 4.5 Globulin 2.6 Albumin/Globulin Ratio 1.8 05/02/18 12:04 WBC RBC Hgb Hct MCV MCH MCHC RDW Plt Count MPV Neut % (Auto) Lymph % (Auto) [place] % (Auto) Eos % (Auto) Baso % (Auto) Neut # (Auto) Lymph # (Auto) [place] # (Auto) Eos # (Auto) Baso # (Auto) Sodium Potassium Chloride Carbon Dioxide Anion Gap BUN Creatinine Est GFR ( Amer) Est GFR (Non-Af Amer) POC Glucose (mg/dL) 165 H Random Glucose Calcium Total Bilirubin AST ALT Alkaline Phosphatase Total Protein Albumin Globulin Albumin/Globulin Ratio Assessment & Plan (1) Bronchitis Status: Acute (2) COPD exacerbation Status: Acute (3) Chronic back pain Status: Acute (4) Diabetes Status: Acute (5) GERD (gastroesophageal reflux disease) Status: Acute (6) Hyperlipidemia Status: Acute (7) Hypertension Status: Acute - Assessment and Plan (Free Text) Assessment: 62 YO FEMALE WITH A HX MULT MED PROBS ADM WITH ACUTE EXAC COPD, ++SEVERE BRONCHITIS, NO EVID PNA ON CXR., CONT NEB BD.,SYMBICORT, IV STEROIDS,., EMPIRIC AB. MONITOR O2 SAT. CXR REVIEWED. ? YAEL RELATED COMPONENT. GI/DVT PROPHYLAXIS., SMOKING CESSATION., PFT'S WHEN STABLE. DISCUSSED WITH STAFF AT LENGTH.
[2018-05-03] MEDS: Albuterol 0.083% Inhal Sol (2.5 mg/3 mL) UD INH SCH ×4 (01:20→20:42)
[2018-05-03] MEDS: MethylPREDNISolone 40 mg Vial IV SCH ×3 (05:47→21:50)
[2018-05-03] MEDS: Promethazine 6.25 MG/5 ML CUP PO PRN (05:52)
--- NOTE | 2018-05-03 06:59 | CP.PCM.PN ---
Subjective - Date & Time of Evaluation Date of Evaluation: 05/03/18 Time of Evaluation: 06:56 - Subjective Subjective: PT ALERT., +COUGH., LOOSE SPUTUM NOW., +SOB. ROS; OTHERWISE NEG Objective - Vital Signs/Intake and Output Vital Signs (last 24 hours): Temp Pulse Resp BP Pulse Ox 97.5 F L 83 20 143/72 99 05/02/18 23:05 05/02/18 23:05 05/02/18 23:05 05/02/18 23:05 05/02/18 23:05 - Medications Medications: Current Medications Albuterol Sulfate (Albuterol 0.083% Inhal Ashleigh (2.5 Mg/3 Ml) Ud) 2.5 mg INH RQ6 [facility] Last Admin: 05/03/18 01:20 Dose: 2.5 mg Azithromycin (Zithromax) 500 mg PO DAILY [facility] PRN Reason: Protocol Last Admin: 05/02/18 09:16 Dose: 500 mg Benzonatate (Tessalon Perles) 200 mg PO TID PRN PRN Reason: Cough Last Admin: 05/02/18 20:19 Dose: 200 mg Ergocalciferol (Drisdol 50,000 Intl Units Cap) 1 cap PO QWK [facility] Heparin Sodium (Porcine) (Heparin) 5,000 units SC Q12 [facility] Last Admin: 05/02/18 21:47 Dose: 5,000 units Hydrochlorothiazide (Microzide) 12.5 mg PO DAILY [facility] Last Admin: 05/02/18 09:15 Dose: 12.5 mg Ibuprofen (Motrin Tab) 600 mg PO TID PRN PRN Reason: Pain, moderate (4-7) Insulin Aspart (Novolog) 0 unit SC ACHS [facility] PRN Reason: Protocol Last Admin: 05/02/18 21:46 Dose: Not Given Lisinopril (Zestril) 20 mg PO DAILY [facility] Last Admin: 05/02/18 09:15 Dose: 20 mg Loratadine (Claritin) 10 mg PO DAILY [facility] Metformin HCl (Glucophage) 500 mg PO DAILY [facility] Last Admin: 05/02/18 09:14 Dose: 500 mg Methylprednisolone (Solu-Medrol) 40 mg IV Q8 [facility] Last Admin: 05/03/18 05:47 Dose: 40 mg Montelukast Sodium (Singulair) 10 mg PO HS [facility] Last Admin: 05/02/18 21:47 Dose: 10 mg Pantoprazole Sodium (Protonix Ec Tab) 40 mg PO DAILY [facility] Last Admin: 05/02/18 09:15 Dose: 40 mg Promethazine HCl (Phenergan Syrup) 6.25 mg PO Q6H PRN PRN Reason: Cough Last Admin: 05/03/18 05:52 Dose: 6.25 mg Rosuvastatin Calcium (Crestor) 5 mg PO HS [facility] Last Admin: 05/02/18 21:47 Dose: 5 mg - Labs Labs: 05/01/18 16:54 05/01/18 16:54 - Constitutional Appears: Non-toxic - Head Exam Head Exam: ATRAUMATIC, NORMOCEPHALIC - Eye Exam Eye Exam: EOMI, Normal appearance - ENT Exam ENT Exam: Mucous Membranes Moist - Neck Exam Neck Exam: Normal Inspection - Respiratory Exam Respiratory Exam: Prolonged Expiratory Phase, Wheezes. absent: Accessory Muscle Use - Cardiovascular Exam Cardiovascular Exam: RRR, +S1, +S2 - GI/Abdominal Exam GI & Abdominal Exam: Soft. absent: Tenderness - Rectal Exam Rectal Exam: Deferred - Extremities Exam Extremities Exam: absent: Calf Tenderness, Pedal Edema - Back Exam Back Exam: absent: CVA tenderness (L), CVA tenderness (R), rash noted - Neurological Exam Neurological Exam: Alert, Awake, CN II-XII Intact, Oriented x3 - Psychiatric Exam Psychiatric exam: Normal Mood - Skin Skin Exam: absent: Rash Assessment and Plan (1) Bronchitis Status: Acute (2) COPD exacerbation Status: Acute (3) Chronic back pain Status: Acute (4) Diabetes Status: Acute (5) GERD (gastroesophageal reflux disease) Status: Acute (6) Hyperlipidemia Status: Acute (7) Hypertension Status: Acute - Assessment and Plan (Free Text) Assessment: RESP STATUS SLIGHTLY IMPROVED, STILL WITH SIG BRONCHOSPASM., CONT IV STEROIDS, NEB BD., ADVAIR., SINGULAIR., CXR REVIEWED. AFEBRILE ON EMPIRIC AB., MONITOR PEAK FLOW., DISCUSSED WITH STAFF.
[2018-05-03] MEDS: Pantoprazole 40 mg EC Tab PO SCH ×2 (07:50→09:49)
[2018-05-03] MEDS: (Novolog) Insulin Aspart, Recombinant 100 u/ml 10 ml vial SC SCH ×4 (07:53→21:19)
[2018-05-03 07:54] LABS: BASO # 0.1 K/uL (0.0-0.2); BASO % 0.4 % (0.0-2.0); HEMOGLOBIN 12.7 g/dL (11.0-16.0); LYMPH # 1.8 K/uL (1.0-4.3); LYMPH % 13.8 % (20.0-40.0); MEAN CORPUSCULAR HGB CONC 33.3 g/dL (33.0-37.0); MEAN PLATELET VOLUME 9.2 fL (7.2-11.7); MONO # 0.4 K/uL (0.0-0.8); MONO % 3.3 % (0.0-10.0); NEUT # 10.9 K/uL (1.8-7.0); NEUT % 82.5 % (50.0-75.0); NRBC % 0.1 % (0.0-2.0); RBC 4.25 Mil/uL (3.80-5.20); RED CELL DISTRIBUTION WIDTH 15.2 % (11.5-14.5); WHITE BLOOD COUNT 13.2 K/uL (4.8-10.8)
[2018-05-03 08:25] LABS: ALB/GLOB RATIO 1.6 (1.0-2.1); ALBUMIN 4.1 g/dL (3.5-5.0); ALT/SGPT 23 U/L (9-52); AST/SGOT 20 U/L (14-36); BLOOD UREA NITROGEN 23 mg/dL (7-17); CALCIUM 9.8 mg/dl (8.6-10.4); GFR NON-AFRICAN AMERICAN > 60; HDL CHOLESTEROL 81 mg/dL (30-70)
[2018-05-03 08:33] LABS: LDL CHOLESTEROL 74 mg/dL (0-129)
[2018-05-04] MEDS: Albuterol 0.083% Inhal Sol (2.5 mg/3 mL) UD INH SCH ×6 (01:13→19:32)
[2018-05-04] MEDS: (Novolog) Insulin Aspart, Recombinant 100 u/ml 10 ml vial SC SCH ×4 (08:19→22:22)
[2018-05-04] MEDS: Promethazine 6.25 MG/5 ML CUP PO PRN ×2 (08:41→18:25)
[2018-05-04] MEDS: Pantoprazole 40 mg EC Tab PO SCH (10:10)
[2018-05-04] MEDS: MethylPREDNISolone 40 mg Vial IV SCH ×2 (10:10→22:19)
[2018-05-04 16:59] VITALS: RESP 20
--- NOTE | 2018-05-04 21:54 | PN ---
Copied To: Pratik Block MD Attending MD: Pratik Block MD DATE: 05/04/2018 SUBJECTIVE: Today, the patient is active. There is no shortness of breath. Receiving breathing treatment cough. PHYSICAL EXAMINATION: VITAL SIGNS: Blood pressure was 122/79, pulse 98, respirations 18. LUNGS: She had some expiratory wheezing and coarse breath sounds. HEART: Regular rate and rhythm. ABDOMEN: Soft. Nontender. No palpable mass. EXTREMITIES: There is no edema. LABORATORY DATA: Showed WBC 13.2, hemoglobin 12.7, hematocrit 38.2, and platelets 297. Chemistry showed a sodium of 140, potassium of 4.4, chloride 101, bicarb is 28, BUN 23, creatinine 0.7, glucose 165, calcium 9.8. Cholesterol 196, LDL 74, and HDL 81. PLAN: We are going to increase the Proventil nebulizer to every 4 hours and also will be also ordered. The case was reviewed and discussed with Tonya Sims, the nurse practitioner. Pratik Block MD
[2018-05-05] MEDS: Albuterol 0.083% Inhal Sol (2.5 mg/3 mL) UD INH SCH ×6 (00:40→19:42)
[2018-05-05 07:56] LABS: HEMOGLOBIN 12.7 g/dL (11.0-16.0); MEAN CORPUSCULAR HEMOGLOBIN 29.9 pg (27.0-31.0); MEAN CORPUSCULAR HGB CONC 32.8 g/dL (33.0-37.0); MEAN PLATELET VOLUME 8.7 fL (7.2-11.7); RBC 4.26 Mil/uL (3.80-5.20); RED CELL DISTRIBUTION WIDTH 14.9 % (11.5-14.5); WHITE BLOOD COUNT 13.9 K/uL (4.8-10.8)
[2018-05-05 08:07] LABS: BLOOD UREA NITROGEN 25 mg/dL (7-17); CALCIUM 9.2 mg/dl (8.6-10.4); GFR NON-AFRICAN AMERICAN > 60
--- NOTE | 2018-05-05 08:10 | HP ---
Copied To: Pratik Block MD Attending MD: Pratik Block MD HISTORY OF PRESENT ILLNESS: The patient is a 62-year-old female with history of hypertension and asthma. The patient came to the urgent care with complaint of shortness of breath. 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 The patient was coughing. The patient was saturating 96%. The patient was evaluated in the office and as the patient was going to home, stated that he started being more short of breath and the patient came to the hospital. the patient was in the hospital a few days ago because shortness of breath. The patient was discharged, but now, the patient was given Solu-Medrol in the emergency room and nebulizer, but the patient remained short of breath and the patient was admitted. ALLERGIES: THE PATIENT HAS NO KNOWN ALLERGIES. PAST MEDICAL HISTORY: Significant for asthma, history of hypertension, and hyperlipidemia. SOCIAL HISTORY: The patient has stopped smoking. FAMILY HISTORY: No inherited disease. Unknown family history. REVIEW OF SYSTEMS: The patient is short of breath on exertion. The patient does have cough. Cardiovascular: The patient denies any chest pain. GI: The patient denies nausea, vomiting, or epigastric pain. : No dysuria. Neuro: The patient is still weak. PHYSICAL EXAMINATION: GENERAL: The patient is alert, awake, and oriented x3. cough. VITAL SIGNS: Blood pressure is 168/92, pulse 68, respirations 20, and temperature 97.7. HEENT: Head is normocephalic. NECK: Supple. LUNGS: Some coarse breath sound. HEART: Regular rate and rhythm. ABDOMEN: Soft. Obese. Mild tenderness in the epigastric area. EXTREMITIES: There is no edema. LABORATORY DATA: The patient had blood work done. WBC is 12.9, hemoglobin 11.9, hematocrit 36.1, and platelets . Chemistry; sodium of 147, potassium 3.8, chloride 107, BUN 24, creatinine 0.7, and glucose 142. A chest x-ray was done and it showed no pneumonia or pleural and the lungs appear clear. IMPRESSION: The patient was admitted with diagnoses of: 1. Exacerbation of asthma. 2. Hypertension. 3. Obesity. 4. Hyperlipidemia. The patient had a consult with Dr. Casey, Pulmonary. The patient will be on oxygen and also nebulizer treatment with albuterol and Solu-Medrol will be ordered. The patient also does have a cough medicine and the rest of the home medications. Pratik Block MD
[2018-05-05] MEDS: (Novolog) Insulin Aspart, Recombinant 100 u/ml 10 ml vial SC SCH ×4 (08:25→21:37)
--- NOTE | 2018-05-05 08:40 | PN ---
Copied To: Pratik Block MD Attending MD: Pratik Block MD DATE: 05/03/2018 SUBJECTIVE: The patient today is feeling better and denies any shortness of breath but still coughing . PHYSICAL EXAMINATION: VITAL SIGNS: The patient has a blood pressure of . NECK: Supple. LUNGS: There are some wheezing. HEART: Regular within limits. ABDOMEN: Soft. EXTREMITIES: Denies any edema. LABORATORY DATA: Blood test showed that WBC 13.2, hemoglobin 12.7, , sugar 140, , chloride 128, BUN 23, creatinine 0.7. ASSESSMENT AND PLAN: We are going to decrease the Solu-Medrol to 40 mg IV every 12 and . Pratik Block MD
[2018-05-05] MEDS: MethylPREDNISolone 40 mg Vial IV SCH ×2 (09:19→22:14)
[2018-05-05] MEDS: Promethazine 6.25 MG/5 ML CUP PO PRN (09:19)
[2018-05-05] MEDS: Pantoprazole 40 mg EC Tab PO SCH (09:20)
--- NOTE | 2018-05-05 10:44 | CP.PCM.PN ---
Subjective - Date & Time of Evaluation Date of Evaluation: 05/05/18 Time of Evaluation: 10:42 - Subjective Subjective: PT ALERT, +COUGH NO SPUTUM., SL LESS SOB. ROS; OTHERWISE NEG Objective - Vital Signs/Intake and Output Vital Signs (last 24 hours): Temp Pulse Resp BP Pulse Ox 97.6 F 71 20 138/81 97 05/05/18 07:20 05/05/18 07:20 05/05/18 07:20 05/05/18 07:20 05/05/18 07:20 - Medications Medications: Current Medications Albuterol Sulfate (Albuterol 0.083% Inhal Ashleigh (2.5 Mg/3 Ml) Ud) 2.5 mg INH RQ4 [facility] Last Admin: 05/05/18 08:37 Dose: 2.5 mg Azithromycin (Zithromax) 500 mg PO DAILY [facility] PRN Reason: Protocol Last Admin: 05/05/18 09:21 Dose: 500 mg Benzonatate (Tessalon Perles) 200 mg PO TID PRN PRN Reason: Cough Last Admin: 05/04/18 13:00 Dose: 200 mg Ergocalciferol (Drisdol 50,000 Intl Units Cap) 1 cap PO QWK [facility] Hydrochlorothiazide (Microzide) 12.5 mg PO DAILY [facility] Last Admin: 05/05/18 09:20 Dose: 12.5 mg Hydrocortisone (Anusol-Hc) 25 mg RC BID [facility] Last Admin: 05/04/18 18:38 Dose: 25 mg Ibuprofen (Motrin Tab) 600 mg PO TID PRN PRN Reason: Pain, moderate (4-7) Last Admin: 05/05/18 10:07 Dose: 600 mg Insulin Aspart (Novolog) 0 unit SC ACHS [facility] PRN Reason: Protocol Last Admin: 05/05/18 08:25 Dose: 1 unit Lisinopril (Zestril) 20 mg PO DAILY [facility] Last Admin: 05/05/18 09:20 Dose: 20 mg Loratadine (Claritin) 10 mg PO DAILY [facility] Last Admin: 05/05/18 09:20 Dose: 10 mg Metformin HCl (Glucophage) 500 mg PO DAILY [facility] Last Admin: 05/05/18 09:20 Dose: 500 mg Methylprednisolone (Solu-Medrol) 40 mg IV Q12 [facility] Last Admin: 05/05/18 09:19 Dose: 40 mg Montelukast Sodium (Singulair) 10 mg PO HS [facility] Last Admin: 05/04/18 22:20 Dose: Not Given Pantoprazole Sodium (Protonix Ec Tab) 40 mg PO DAILY [facility] Last Admin: 05/05/18 09:20 Dose: 40 mg Promethazine HCl (Phenergan Syrup) 6.25 mg PO Q6H PRN PRN Reason: Cough Last Admin: 05/05/18 09:19 Dose: 6.25 mg Rosuvastatin Calcium (Crestor) 5 mg PO HS [facility] Last Admin: 05/04/18 22:19 Dose: 5 mg - Labs Labs: 05/05/18 07:45 05/05/18 07:45 - Constitutional Appears: Non-toxic - Head Exam Head Exam: ATRAUMATIC, NORMOCEPHALIC - Eye Exam Eye Exam: EOMI, Normal appearance - ENT Exam ENT Exam: Mucous Membranes Moist - Neck Exam Neck Exam: Normal Inspection - Respiratory Exam Respiratory Exam: Decreased Breath Sounds, Wheezes. absent: Accessory Muscle Use - Cardiovascular Exam Cardiovascular Exam: RRR, +S1, +S2 - GI/Abdominal Exam GI & Abdominal Exam: Soft. absent: Tenderness - Rectal Exam Rectal Exam: Deferred - Extremities Exam Extremities Exam: absent: Calf Tenderness, Pedal Edema - Back Exam Back Exam: absent: CVA tenderness (L), CVA tenderness (R) - Neurological Exam Neurological Exam: Alert, Awake, CN II-XII Intact, Normal Gait, Oriented x3 - Psychiatric Exam Psychiatric exam: Normal Mood - Skin Skin Exam: absent: Rash Assessment and Plan (1) Bronchitis Status: Acute (2) COPD exacerbation Status: Acute (3) Chronic back pain Status: Acute (4) Diabetes Status: Acute (5) GERD (gastroesophageal reflux disease) Status: Acute (6) Hyperlipidemia Status: Acute (7) Hypertension Status: Acute - Assessment and Plan (Free Text) Assessment: RESP STATUS SLOW IMPROVEMENT., STILL WITH BRONCHOSPASM., ON IV STEROIDS, RESUME ADVAIR. NEB BD., SINGULAIR., CONSIDER HOLD YAEL ? AFEBRILE ON AB. CXR REVIEWED. DISCUSSED WITH STAFF AT LENGTH
[2018-05-05] MEDS: Fluticasone-Salmeterol 500-50mcg Diskus INH SCH (19:42)
[2018-05-06] MEDS: Albuterol 0.083% Inhal Sol (2.5 mg/3 mL) UD INH SCH ×6 (00:32→19:39)
--- NOTE | 2018-05-06 04:06 | PN ---
Copied To: Pratik Block MD Attending MD: Pratik lBock MD DATE: 05/05/2018 SUBJECTIVE: Today, the patient is alert and awake. She complains of cough with shortness of breath on exertion and tired. PHYSICAL EXAMINATION: VITAL SIGNS: The patient has blood pressure of 124/70, pulse is 86, respirations 20, and temperature is 98.1. NECK: Supple. LUNGS: She has some coarse breath sounds with expiratory wheezing. HEART: Regular rate and rhythm. ABDOMEN: Soft. No tenderness. EXTREMITIES: No edema. LABORATORY DATA: The patient's lab showed that her WBC is 13.9, hemoglobin , hematocrit 38.7, and platelets 317. Chemistry showed a sodium of 138, potassium of 4.6, bicarb is 31, chloride 98, BUN is 35, creatinine 0.7, and glucose 243. Plan is that we are going to increase the Solu-Medrol 40 mg IV every 8 hours and continue the Proventil nebulizer every 4 hours. The case was discussed and reviewed with Rafaela Simmons, the nurse practitioner. Pratik Block MD
[2018-05-06] MEDS: MethylPREDNISolone 40 mg Vial IV SCH ×2 (05:34→21:31)
[2018-05-06] MEDS: Fluticasone-Salmeterol 500-50mcg Diskus INH SCH ×2 (08:00→19:39)
[2018-05-06] MEDS: (Novolog) Insulin Aspart, Recombinant 100 u/ml 10 ml vial SC SCH ×4 (08:12→22:00)
[2018-05-06] MEDS: Pantoprazole 40 mg EC Tab PO SCH (10:42)
[2018-05-06] MEDS: Promethazine 6.25 MG/5 ML CUP PO PRN (10:46)
--- NOTE | 2018-05-06 19:58 | CP.PCM.PN ---
Subjective - Date & Time of Evaluation Date of Evaluation: 05/06/18 Time of Evaluation: 19:56 - Subjective Subjective: PT ALERT, FEELS BETTER. LESS COUGH. ROS; OTHERWISE NEG. Objective - Vital Signs/Intake and Output Vital Signs (last 24 hours): Temp Pulse Resp BP Pulse Ox 97.6 F 88 20 120/72 96 05/06/18 15:00 05/06/18 15:00 05/06/18 15:00 05/06/18 15:00 05/06/18 15:00 - Medications Medications: Current Medications Albuterol Sulfate (Albuterol 0.083% Inhal Ashleigh (2.5 Mg/3 Ml) Ud) 2.5 mg INH RQ4 [facility] Last Admin: 05/06/18 19:39 Dose: 2.5 mg Azithromycin (Zithromax) 500 mg PO DAILY [facility] PRN Reason: Protocol Last Admin: 05/06/18 10:52 Dose: 500 mg Benzonatate (Tessalon Perles) 200 mg PO TID PRN PRN Reason: Cough Last Admin: 05/06/18 10:53 Dose: 200 mg Ergocalciferol (Drisdol 50,000 Intl Units Cap) 1 cap PO QWK [facility] Heparin Sodium (Porcine) (Heparin) 5,000 units SC Q12 [facility] Hydrochlorothiazide (Microzide) 12.5 mg PO DAILY [facility] Last Admin: 05/06/18 10:42 Dose: 12.5 mg Hydrocortisone (Anusol-Hc) 25 mg RC BID [facility] Last Admin: 05/06/18 18:03 Dose: Not Given Ibuprofen (Motrin Tab) 600 mg PO TID PRN PRN Reason: Pain, moderate (4-7) Last Admin: 05/06/18 18:07 Dose: 600 mg Insulin Aspart (Novolog) 0 unit SC ACHS [facility] PRN Reason: Protocol Last Admin: 05/06/18 18:00 Dose: 1 unit Lisinopril (Zestril) 20 mg PO DAILY [facility] Last Admin: 05/06/18 10:53 Dose: 20 mg Loratadine (Claritin) 10 mg PO DAILY [facility] Last Admin: 05/06/18 10:43 Dose: 10 mg Metformin HCl (Glucophage) 500 mg PO DAILY [facility] Last Admin: 05/06/18 10:42 Dose: 500 mg Methylprednisolone (Solu-Medrol) 40 mg IV Q12 [facility] Montelukast Sodium (Singulair) 10 mg PO HS [facility] Last Admin: 05/05/18 22:13 Dose: 10 mg Pantoprazole Sodium (Protonix Ec Tab) 40 mg PO DAILY [facility] Last Admin: 05/06/18 10:42 Dose: 40 mg Promethazine HCl (Phenergan Syrup) 6.25 mg PO Q6H PRN PRN Reason: Cough Last Admin: 05/06/18 10:46 Dose: 6.25 mg Rosuvastatin Calcium (Crestor) 5 mg PO HS [facility] Last Admin: 05/05/18 22:13 Dose: 5 mg Fluticasone/Salmeterol (Advair Diskus 500/50) 1 puff INH RQ12 [facility] Last Admin: 05/06/18 19:39 Dose: 1 puff - Labs Labs: 05/05/18 07:45 05/05/18 07:45 - Constitutional Appears: Non-toxic - Head Exam Head Exam: ATRAUMATIC, NORMOCEPHALIC - Eye Exam Eye Exam: EOMI, Normal appearance - ENT Exam ENT Exam: Mucous Membranes Moist - Neck Exam Neck Exam: Normal Inspection - Respiratory Exam Respiratory Exam: Wheezes. absent: Respiratory Distress Additional comments: BETTER AIR MOVEMENT. - Cardiovascular Exam Cardiovascular Exam: RRR, +S1, +S2 - GI/Abdominal Exam GI & Abdominal Exam: Soft. absent: Tenderness - Rectal Exam Rectal Exam: Deferred - Extremities Exam Extremities Exam: absent: Calf Tenderness, Pedal Edema - Back Exam Back Exam: absent: CVA tenderness (L), CVA tenderness (R) - Neurological Exam Neurological Exam: Alert, Awake, CN II-XII Intact, Normal Gait, Oriented x3 - Psychiatric Exam Psychiatric exam: Normal Mood - Skin Skin Exam: absent: Rash Assessment and Plan (1) Bronchitis Status: Acute (2) COPD exacerbation Status: Acute (3) Chronic back pain Status: Acute (4) Diabetes Status: Acute (5) GERD (gastroesophageal reflux disease) Status: Acute (6) Hyperlipidemia Status: Acute (7) Hypertension Status: Acute - Assessment and Plan (Free Text) Assessment: RESP STATUS SLOW IMPROVEMENT , STEROID TAPER TOLERATED., CONT NEB BD. ADVAIR , SINGULAIR., AFEBRILE ON AB. CXR REVIEWED. INCREASE OOB. DISCUSSED WITH STAFF.
--- NOTE | 2018-05-07 00:30 | PN ---
Copied To: Pratik Block MD Attending MD: Pratik Block MD DATE: 05/06/2018 SUBJECTIVE: Today, the patient is alert and awake with less shortness of breath. No chest pain, no palpitation but shortness of breath on exertion. PHYSICAL EXAMINATION: VITAL SIGNS: The patient has a blood pressure of 120/72, pulse is 86, respirations 20, and temperature is 97.6. NECK: Supple. No JVD. LUNGS: She has some rhonchi noted at this point. HEART: Regular rate and rhythm. ABDOMEN: Soft and obese. EXTREMITIES: There is no edema. LABORATORY DATA: The patient's blood work showed that her WBC is 13.9, hemoglobin 12.7, hematocrit 38.7, and platelets 317. Chemistry: Sodium 138, potassium 4.6, chloride 98, bicarb 31, BUN 25, creatinine 0.7, and glucose 243. ASSESSMENT AND PLAN: The plan is that we are going to decrease Solu-Medrol every 12 hours, and we are going to continue the albuterol and will be followed. Case was reviewed and discussed with Tonya Sims, the nurse practitioner. Pratik Block MD
[2018-05-07] MEDS: Albuterol 0.083% Inhal Sol (2.5 mg/3 mL) UD INH SCH ×7 (00:55→23:45)
[2018-05-07] MEDS: Fluticasone-Salmeterol 500-50mcg Diskus INH SCH ×2 (07:34→19:35)
[2018-05-07] MEDS: (Novolog) Insulin Aspart, Recombinant 100 u/ml 10 ml vial SC SCH ×3 (08:06→21:36)
--- NOTE | 2018-05-07 08:07 | CP.PCM.PN ---
Subjective - Date & Time of Evaluation Date of Evaluation: 05/07/18 Time of Evaluation: 08:04 - Subjective Subjective: PT ALERT, SLEPT WELL. +COUGH., LESS SOB. ROS; OTHERWISE NEG Objective - Vital Signs/Intake and Output Vital Signs (last 24 hours): Temp Pulse Resp BP Pulse Ox 98.2 F 77 20 120/78 97 05/06/18 23:30 05/06/18 23:30 05/06/18 23:30 05/06/18 23:30 05/06/18 23:30 Intake and Output: 05/07/18 05/07/18 06:59 18:59 Intake Total 270 Balance 270 - Medications Medications: Current Medications Albuterol Sulfate (Albuterol 0.083% Inhal Ashleigh (2.5 Mg/3 Ml) Ud) 2.5 mg INH RQ4 [facility] Last Admin: 05/07/18 07:34 Dose: 2.5 mg Azithromycin (Zithromax) 500 mg PO DAILY [facility] PRN Reason: Protocol Last Admin: 05/06/18 10:52 Dose: 500 mg Benzonatate (Tessalon Perles) 200 mg PO TID PRN PRN Reason: Cough Last Admin: 05/06/18 10:53 Dose: 200 mg Ergocalciferol (Drisdol 50,000 Intl Units Cap) 1 cap PO QWK [facility] Heparin Sodium (Porcine) (Heparin) 5,000 units SC Q12 [facility] Last Admin: 05/06/18 21:31 Dose: 5,000 units Hydrochlorothiazide (Microzide) 12.5 mg PO DAILY [facility] Last Admin: 05/06/18 10:42 Dose: 12.5 mg Hydrocortisone (Anusol-Hc) 25 mg RC BID [facility] Last Admin: 05/06/18 18:03 Dose: Not Given Ibuprofen (Motrin Tab) 600 mg PO TID PRN PRN Reason: Pain, moderate (4-7) Last Admin: 05/06/18 18:07 Dose: 600 mg Insulin Aspart (Novolog) 0 unit SC ACHS [facility] PRN Reason: Protocol Last Admin: 05/06/18 22:00 Dose: Not Given Lisinopril (Zestril) 20 mg PO DAILY [facility] Last Admin: 05/06/18 10:53 Dose: 20 mg Loratadine (Claritin) 10 mg PO DAILY [facility] Last Admin: 05/06/18 10:43 Dose: 10 mg Metformin HCl (Glucophage) 500 mg PO DAILY [facility] Last Admin: 05/06/18 10:42 Dose: 500 mg Methylprednisolone (Solu-Medrol) 40 mg IV Q12 [facility] Last Admin: 05/06/18 21:31 Dose: 40 mg Montelukast Sodium (Singulair) 10 mg PO HS [facility] Last Admin: 05/06/18 21:31 Dose: 10 mg Pantoprazole Sodium (Protonix Ec Tab) 40 mg PO DAILY [facility] Last Admin: 05/06/18 10:42 Dose: 40 mg Promethazine HCl (Phenergan Syrup) 6.25 mg PO Q6H PRN PRN Reason: Cough Last Admin: 05/06/18 10:46 Dose: 6.25 mg Rosuvastatin Calcium (Crestor) 5 mg PO HS [facility] Last Admin: 05/06/18 21:31 Dose: 5 mg Fluticasone/Salmeterol (Advair Diskus 500/50) 1 puff INH RQ12 [facility] Last Admin: 05/07/18 07:34 Dose: 1 puff - Labs Labs: 05/05/18 07:45 05/05/18 07:45 - Constitutional Appears: Non-toxic, No Acute Distress - Head Exam Head Exam: ATRAUMATIC, NORMOCEPHALIC - Eye Exam Eye Exam: EOMI, Normal appearance - ENT Exam ENT Exam: Mucous Membranes Moist - Neck Exam Neck Exam: Normal Inspection - Respiratory Exam Respiratory Exam: Prolonged Expiratory Phase, Wheezes. absent: Accessory Muscle Use, Respiratory Distress Additional comments: BETTER AIR MOVEMENT. - Cardiovascular Exam Cardiovascular Exam: RRR, +S1, +S2 - GI/Abdominal Exam GI & Abdominal Exam: Soft. absent: Tenderness - Rectal Exam Rectal Exam: Deferred - Extremities Exam Extremities Exam: absent: Calf Tenderness, Pedal Edema - Back Exam Back Exam: absent: CVA tenderness (L), CVA tenderness (R) - Neurological Exam Neurological Exam: Alert, Awake, CN II-XII Intact, Oriented x3 - Psychiatric Exam Psychiatric exam: Normal Mood - Skin Skin Exam: Intact. absent: Rash Assessment and Plan (1) Bronchitis Status: Acute (2) COPD exacerbation Status: Acute (3) Chronic back pain Status: Acute (4) Diabetes Status: Acute (5) GERD (gastroesophageal reflux disease) Status: Acute (6) Hyperlipidemia Status: Acute (7) Hypertension Status: Acute - Assessment and Plan (Free Text) Assessment: RESP STATUS IMPROVING., TOLERATING STEROID TAPER, CONT NEB BD., ADVAIR. AND SINGULAIR. AFEBRILE ON AB., CXR REVIEWED, INCREASE OOB. MONITOR O2 SAT ON ROOM AIR. DISCUSSED WITH STAFF.
[2018-05-07] MEDS: MethylPREDNISolone 40 mg Vial IV SCH ×2 (09:13→21:37)
[2018-05-07] MEDS: Pantoprazole 40 mg EC Tab PO SCH (09:14)
[2018-05-07] MEDS ORDERED: MethylPREDNISolone 40 mg Vial IV SCH (11:59)
--- NOTE | 2018-05-08 00:43 | PN ---
Copied To: Pratik Block MD Attending MD: Pratik Block MD DATE: 05/06/2018 SUBJECTIVE: Today, the patient is alert and awake, having less shortness of breath. Complaining of congestive cough, no dizziness, no chest pain. PHYSICAL EXAMINATION: VITAL SIGNS: The patient has blood pressure of 136/88, pulse 69, respiratory rate 20, temperature 98.4. NECK: Supple. No JVD. LUNGS: She has some rhonchi noted and some expiratory wheezing. HEART: Regular rate and rhythm. ABDOMEN: Soft, nontender. No palpable mass. EXTREMITIES: There is no edema. LABORATORY DATA: The labs showed WBC . Plan is that we are going to continue the Solu-Medrol but we are going to decrease it to 30 mg every 12 hours and continue the Proventil nebulizer, so the case was reviewed and discussed with Tonya Sims, the nurse practitioner. Pratik Block MD
[2018-05-08] MEDS: Albuterol 0.083% Inhal Sol (2.5 mg/3 mL) UD INH SCH ×2 (03:06→07:50)
[2018-05-08] MEDS: (Novolog) Insulin Aspart, Recombinant 100 u/ml 10 ml vial SC SCH ×2 (07:30→11:58)
[2018-05-08] MEDS: Fluticasone-Salmeterol 500-50mcg Diskus INH SCH (07:50)
[2018-05-08] MEDS: MethylPREDNISolone 40 mg Vial IV SCH (09:34)
[2018-05-08] MEDS: Pantoprazole 40 mg EC Tab PO SCH (09:37)
[2018-05-08 09:41] VITALS: BP 119/78; PULSE 83; TEMP 98.2; O2SAT 99
[2018-05-08] MEDS ORDERED: Ergocalciferol 50,000 Intl Units Cap PO SCH (10:00)
--- NOTE | 2018-05-08 15:24 | CP.PCM.PN ---
Subjective - Date & Time of Evaluation Date of Evaluation: 05/08/18 Time of Evaluation: 15:18 - Subjective Subjective: PT SEEN BY AND CLEARED BY DR. ARDON FOR D/C HOME TODAY. PT TO BE RX PREDNISONE 10 MG (TAKE 1 TAB PO TID X3 DAYS THEN 1 TAB PO BID X3 DAYS THEN 1 TAB PO QD X3 DAYS) AND ANUSOL BID. RX SENT DIRECTLY TO PT'S PHARMACY. SHE CAN PICK THEM UP THIS AFTERNOON. F/U WITH DR. ARDON IN THE OFFICE WITHIN 1-2 WEEKS. NO FURTHER ORDERS. Objective - Vital Signs/Intake and Output Vital Signs (last 24 hours): Temp Pulse Resp BP Pulse Ox 98.2 F 83 20 119/78 99 05/08/18 09:40 05/08/18 09:40 05/08/18 09:40 05/08/18 09:40 05/08/18 09:40 Intake and Output: 05/08/18 05/08/18 06:59 18:59 Intake Total 200 Balance 200 - Labs Labs: 05/05/18 07:45 05/05/18 07:45
--- NOTE | 2018-05-08 23:03 | PN ---
Copied To: Pratik Block MD Attending MD: Pratik Block MD DATE: 05/08/2018 SUBJECTIVE: Today, the patient is alert and awake. Denies any shortness of breath. No chest pain. No palpitation. The patient has been able to ambulate without having any shortness of breath. PHYSICAL EXAMINATION: VITAL SIGNS: The patient has blood pressure of 119/78, pulse 82, respirations 20, temperature 98.2. NECK: Supple. No JVD. LUNGS: Clear at this point. HEART: Regular rate and rhythm. ABDOMEN: Soft and obese. EXTREMITIES: No edema. ASSESSMENT AND PLAN: The point is that, the patient maybe able to be discharged home, but the patient will be on prednisone 10 mg three times a day and also the Proventil nebulizer. The patient will come to see me in the office within one week. Case was discussed with Tonya Sims, the nurse practitioner. Pratik Block MD
--- NOTE | 2018-05-09 15:58 | DS ---
Copied To: Pratik Block MD Attending MD: Pratik Block MD HOSPITAL COURSE: The patient is a 62-year-old female with history of hypertension and asthma. The patient was seen in my office earlier with also shortness of breath, but the patient's shortness of breath was increasing after the patient left the office. The patient went to the hospital and received medication, but the patient remained short of breath so the patient was admitted. On the physical exam, found the patient who had a coarse breath sound and expiratory wheezing. The patient was put on medication including Solu-Medrol, hydralazine, Proventil nebulizer, Singulair, and other medication for blood pressure. The patient had a course started with Dr. Casey of Pulmonary and also the patient had as a result dose of the steroid, the patient started improving progressively and the patient now is better. The lungs are clear today and no shortness of breath. She will be seen in the emergency room and discharged home and will follow within five to seven days. Pratik Block MD
== END 2018-05-08 13:27 | disposition left against medical advice (07) | DRG 191 ==
LOC: C.ER 15:37 → C.9E 19:36 → C.6T 20:53 → OBSVTOIN 05-02 13:50 → C.6T 05-04 16:38
PROVIDERS: ADMIT Specialist; ATTEND Specialist
DX: J44.1 Chronic obstructive pulmonary disease with (acute) exacerbation (principal); J45.901 Unspecified asthma with (acute) exacerbation; E11.9 Type 2 diabetes mellitus without complications; E66.9 Obesity, unspecified; E78.5 Hyperlipidemia, unspecified; I10 Essential (primary) hypertension; K21.9 Gastro-esophageal reflux disease without esophagitis; Z87.891 Personal history of nicotine dependence; G89.29 Other chronic pain; M54.9 Dorsalgia, unspecified

== ENCOUNTER 2018-08-21 15:37 | Emergency (ER) | payer MEDICARE ==
[2018-08-21 15:40] VITALS: BMI 36.6
[2018-08-21 15:45] VITALS: BP 161/88; PULSE 74; TEMP 98.2; O2SAT 100
[2018-08-21] MEDS ORDERED: Albuterol-Ipratrop 3 mg / 0.5 (3 ml) UD ONE ×2 (15:52→16:13)
[2018-08-21 15:57] VITALS: RESP 20
[2018-08-21] MEDS ORDERED: Albuterol-Ipratrop 3 mg / 0.5 (3 ml) UD INH STA (16:11)
--- NOTE | 2018-08-21 16:14 | C.PDOC ---
History Of Present Illness 63 year old female with a history asthma presents to the ED for an evaluation of increased shortness of breath and wheezing onset Friday. Patient went to her primary care who provided refill for asthma medication. Patient reports the oral steroids make her feel better but her primary care did not prescribe those medication. The new medication did not provide any relief and the patient called her primary care who suggested she return to the clinic, however the patient came to the ED. Otherwise, patient denies fever, chest pain or cough. Time Seen by Provider: 08/21/18 15:49 Chief Complaint (Nursing): Shortness Of Breath History Per: Patient History/Exam Limitations: no limitations Onset/Duration Of Symptoms: Days Current Symptoms Are (Timing): Still Present Past Medical History Reviewed: Historical Data, Nursing Documentation, Vital Signs Vital Signs: Last Vital Signs Temp 98.2 F 08/21/18 15:40 Pulse 74 08/21/18 15:40 Resp 20 08/21/18 15:53 BP 161/88 H 08/21/18 15:40 Pulse Ox 100 08/21/18 15:40 - Medical History PMH: Anxiety, Asthma, Bronchitis, COPD, Diabetes (Doesn't know the name of medications), Fractures (toe), Gastritis, HTN, Hypercholesterolemia Denies: Chronic Kidney Disease Surgical History: Endoscopy - [facility] Procedures NEBULIZER THERAPY (01/08/04) Family History: States: Unknown Family Hx - Social History Hx Tobacco Use: Yes Hx Alcohol Use: Yes (occassional) Hx Substance Use: No - Immunization History Hx Tetanus Toxoid Vaccination: No Hx Influenza Vaccination: Yes Hx Pneumococcal Vaccination: Yes Review Of Systems Constitutional: Negative for: Fever, Chills Cardiovascular: Negative for: Chest Pain Respiratory: Positive for: Shortness of Breath, Wheezing. Negative for: Cough Gastrointestinal: Negative for: Nausea, Vomiting, Abdominal Pain, Diarrhea Physical Exam - Physical Exam Appears: Non-toxic, No Acute Distress Skin: Normal Color, Warm, Dry Head: Atraumatic, Normacephalic Eye(s): bilateral: Normal Inspection, PERRL, EOMI Chest: Symmetrical Cardiovascular: Rhythm Regular Respiratory: Wheezing (diffuse), Other (no respiratory distress, patient can speak full sentences ) Gastrointestinal/Abdominal: Soft, No Tenderness Back: Normal Inspection Extremity: Normal ROM, No Tenderness, No Pedal Edema, No Deformity Neurological/Psych: Oriented x3, Normal Speech Gait: Steady ED Course And Treatment O2 Sat by Pulse Oximetry: 100 (RA) Pulse Ox Interpretation: Normal Medical Decision Making Medical Decision Making: Time: 1557 Impression: shortness of breath and wheezing Initial Plan: --Chest Two Views (PA/LAT) [RAD] --Albuterol 3ml INH --Prednisone 20mg --Nebulizer treatment [RT] --Peak Flow Pre/Post TX Patient given duoneb x2 and prednisone 20mg PO. On re-eval patient states that she feels much better and would liek to go home. Rx written for week long course of prednisone. Advised outpatient followup, or return to the ED for any new or worsening symptoms. Disposition - Disposition Disposition: HOME/ ROUTINE Disposition Time: 17:23 Condition: GOOD Additional Instructions: ZENY JOHNSON, thank you for letting us take care of you today. Your provider was Kathy Kyle MD and you were treated for ASTHMA/SOB. The emergency medical care you received today was directed at your acute symptoms. If you were prescribed any medication, please fill it and take as directed. It may take several days for your symptoms to resolve. Return to the Emergency Department if your symptoms worsen, do not improve, or if you have any other problems. Please contact your doctor or call one of the physicians/clinics you have been referred to that are listed on the Patient Visit Information form that is included in your discharge packet. Bring any paperwork you were given at discharge with you along with any medications you are taking to your follow up visit. Our treatment cannot replace ongoing medical care by a primary care provider outside of the emergency department. Thank you for allowing the [facility] team to be part of your care today. If you had an X-Ray or CT scan: A Radiologist will review the ED reading if any change in treatment is needed we will contact you. If you had a blood, urine, or wound culture: It will take several days for the results, if any change in treatment is needed we will contact you. If you had an STI test: It will take 48 hours for the results. Please call after 1 week if you have not heard back. Prescriptions: RX: predniSONE [predniSONE Tab] 20 mg PO DAILY #7 tab Instructions: Asthma, Adult (DC) Forms: [employer] (Ecuadorean) - Clinical Impression Clinical Impression: Asthma exacerbation - Scribe Statement The provider has reviewed the documentation as recorded by the Scribe (Belén Garcia) All medical record entries made by the Scribe were at my direction and personally dictated by me. I have reviewed the chart and agree that the record accurately reflects my personal performance of the history, physical exam, medical decision making, and the department course for this patient. I have also personally directed, reviewed, and agree with the discharge instructions and disposition.
== END 2018-08-21 17:20 | disposition home or self-care (01) ==
LOC: C.ER 15:37
DX: J45.901 Unspecified asthma with (acute) exacerbation (principal)

== ENCOUNTER 2018-08-24 15:07 | Observation (INO) | payer MEDICARE ==
[2018-08-24 15:07] VITALS: BMI 36.6
[2018-08-24] MEDS ORDERED: Albuterol-Ipratrop 3 mg / 0.5 (3 ml) UD INH STA ×2 (15:17→17:41)
[2018-08-24] MEDS ORDERED: Albuterol-Ipratrop 3 mg / 0.5 (3 ml) UD ONE ×2 (15:18→16:01)
[2018-08-24 16:55] LABS: BASO % 0.4 % (0.0-2.0); EOS % 0.2 % (0.0-4.0); HEMOGLOBIN 10.8 g/dL (11.0-16.0); LYMPH # 1.7 K/uL (1.0-4.3); LYMPH % 21.5 % (20.0-40.0); MEAN CELL VOLUME 92.5 fL (81.0-99.0); MEAN CORPUSCULAR HGB CONC 32.5 g/dL (33.0-37.0); MEAN PLATELET VOLUME 8.9 fL (7.2-11.7); MONO # 0.3 K/uL (0.0-0.8); MONO % 4.3 % (0.0-10.0); NEUT # 5.7 K/uL (1.8-7.0); NEUT % 73.6 % (50.0-75.0); NRBC % 0.1 % (0.0-2.0); RBC 3.58 Mil/uL (3.80-5.20); WHITE BLOOD COUNT 7.7 K/uL (4.8-10.8)
--- NOTE | 2018-08-24 16:55 | C.PDOC ---
History Of Present Illness 63 y/o female with a PMHx of asthma, presents to the ED for worsening SOB. Patient was seen 3 days ago, evaluated and discharged home. Now returns with persistent SOB, reports no improvement with using inhalers at home. Patient reports being compliant with steroid treatment as well, however no relief of symptoms. Denies any chest pain, fever, chills, dizziness, or visual loss. Time Seen by Provider: 08/24/18 16:04 Chief Complaint (Nursing): Shortness Of Breath History Per: Patient History/Exam Limitations: no limitations Onset/Duration Of Symptoms: Days Current Symptoms Are (Timing): Still Present Past Medical History Reviewed: Historical Data, Nursing Documentation, Vital Signs Vital Signs: Last Vital Signs Temp 98.2 F 08/24/18 15:09 Pulse 97 H 08/24/18 15:09 Resp 22 08/24/18 15:45 BP 180/92 H 08/24/18 15:09 Pulse Ox 95 08/24/18 15:45 - Medical History PMH: Anxiety, Asthma, Bronchitis, COPD, Diabetes (Doesn't know the name of medications), Fractures (toe), Gastritis, HTN, Hypercholesterolemia Denies: Chronic Kidney Disease Surgical History: Endoscopy - [facility] Procedures NEBULIZER THERAPY (01/08/04) Family History: States: Unknown Family Hx - Social History Hx Tobacco Use: Yes Hx Alcohol Use: Yes (occassional) Hx Substance Use: No - Immunization History Hx Tetanus Toxoid Vaccination: No Hx Influenza Vaccination: Yes Hx Pneumococcal Vaccination: Yes Review Of Systems Except As Marked, All Systems Reviewed And Found Negative. Constitutional: Negative for: Fever, Chills, Sweats Eyes: Negative for: Vision Change Cardiovascular: Negative for: Chest Pain, Light Headedness Respiratory: Positive for: Cough, Shortness of Breath, Wheezing Gastrointestinal: Negative for: Vomiting, Abdominal Pain Neurological: Negative for: Weakness, Numbness, Dizziness Physical Exam - Physical Exam Appears: Non-toxic, No Acute Distress Skin: Normal Color, Warm, Dry Head: Atraumatic, Normacephalic Eye(s): bilateral: Normal Inspection, PERRL, EOMI Oral Mucosa: Moist Neck: Normal ROM, Supple Cardiovascular: Rhythm Regular, No Murmur Respiratory: No Accessory Muscle Use, No Rales, No Rhonchi, Wheezing (Expiratory) Gastrointestinal/Abdominal: Soft, No Tenderness, No Distention Back: No CVA Tenderness Extremity: Bilateral: Atraumatic, Normal Color And Temperature, Normal ROM Neurological/Psych: Oriented x3, Normal Speech ED Course And Treatment - Laboratory Results Result Diagrams: 08/24/18 16:49 08/24/18 16:49 ECG: Interpreted By Me, Viewed By Me ECG Rhythm: Sinus Rhythm Interpretation Of ECG: normal intervals, normal axis, no ST or T wave abnormalities Rate From EC (bpm) O2 Sat by Pulse Oximetry: 95 (RA) Pulse Ox Interpretation: Normal Medical Decision Making Medical Decision Making: Impression: Asthma Exacerbation Plan: --EKG --Blood work with cardiac enzymes --Chest x-ray --125 mg IV Solu-Medrol --3 ml INH Duoneb --Reassess and dispo 1743 - patient states slight improvement. Discussed with pmd and will admit to med surg observation Disposition Discussed With Dr.: Pratik Block Doctor Will See Patient In The: Hospital Counseled Patient/Family Regarding: Studies Performed, Diagnosis - Disposition Disposition: HOSPITALIZED Disposition Time: 17:44 Condition: FAIR Forms: [employer] (Irish) - Clinical Impression Clinical Impression: Asthma exacerbation - Scribe Statement The provider has reviewed the documentation as recorded by the Marilu Andrews Provider Attestation: All medical record entries made by the Jesibe were at my direction and personally dictated by me. I have reviewed the chart and agree that the record accurately reflects my personal performance of the history, physical exam, medical decision making, and the department course for this patient. I have also personally directed, reviewed, and agree with the discharge instructions and disposition.
[2018-08-24 17:12] LABS: ALB/GLOB RATIO 1.5 (1.0-2.1); ALBUMIN 3.8 g/dL (3.5-5.0); ALT/SGPT 37 U/L (9-52); AST/SGOT 34 U/L (14-36); BLOOD UREA NITROGEN 30 mg/dL (7-17); CALCIUM 9.2 mg/dl (8.6-10.4); GFR NON-AFRICAN AMERICAN > 60
[2018-08-24 17:22] LABS: B-TYPE NATRIURETIC PEPTIDE 603 pg/mL (0-900)
--- NOTE | 2018-08-24 21:00 | RAD ---
Date of service: 08/24/2018 PROCEDURE: CHEST RADIOGRAPH, 1 VIEW HISTORY: SOB COMPARISON: 05/01/2018 FINDINGS: LUNGS: Clear. PLEURA: No pneumothorax or pleural fluid seen. CARDIOVASCULAR: No aortic atherosclerotic calcification present. Normal. OSSEOUS STRUCTURES: No significant abnormalities. VISUALIZED UPPER ABDOMEN: Normal. OTHER FINDINGS: None. IMPRESSION: No active disease.
[2018-08-24 21:03] VITALS: RESP 20
[2018-08-24] MEDS ORDERED: MethylPREDNISolone 40 mg Vial IVP STA (21:39)
[2018-08-24] MEDS: MethylPREDNISolone 40 mg Vial IVP SCH (22:38)
[2018-08-25] MEDS: Albuterol 0.042% Inhal Sol (1.25 mg/3 mL) UD INH SCH ×4 (01:19→19:25)
[2018-08-25] MEDS: MethylPREDNISolone 40 mg Vial IVP SCH ×3 (05:37→21:31)
--- NOTE | 2018-08-25 10:46 | CP.PCM.CON ---
History of Present Illness - History of Present Illness History of Present Illness: 0CHART REVIEWED., PT SEEN AND EXAMINED. 63 YO B FEMALE WITH A HX COPD, HTN, DM, GERD, ADM WITH INCREASED MOD SOB WITH MIN EXERTION X 1 WK., NO RELIEF WITH HOME NEB . +COUGH +YELLOW SPUTUM., NO FEVER. NO N/V NO DIARRHEA. SEEN IN ER FEW DAYS AGO AND RELEASED. QUIT SMOKING LAST WK. Review of Systems - Review of Systems All systems: reviewed and no additional remarkable complaints except - Constitutional Constitutional: absent: Fever, Weight Loss - EENT Eyes: absent: Change in Vision Ears: absent: Decreased Hearing Nose/Mouth/Throat: absent: Nasal Congestion - Cardiovascular Cardiovascular: absent: Chest Pain - Respiratory Respiratory: Cough, Dyspnea, Dyspnea on Exertion, Wheezing, Chest Congestion, Excessive Mucous Production - Gastrointestinal Gastrointestinal: absent: Diarrhea, Nausea, Vomiting - Genitourinary Genitourinary: absent: Difficulty Urinating - Musculoskeletal Musculoskeletal: Back Pain - Integumentary Integumentary: absent: Rash - Neurological Neurological: absent: Confusion, Focal Weakness, Syncope - Psychiatric Psychiatric: absent: Anxiety - Endocrine Endocrine: absent: Change in Body Appearance, Excessive Sweating - Hematologic/Lymphatic Hematologic: absent: Easy Bruising Past Patient History - Infectious Disease Hx of Infectious Diseases: None - Past Medical History & Family History Past Medical History?: Yes Pertinent Family History: +ASTHMA - Past Social History Smoking Status: Current Some Days Smoker Chewing Tobacco Use: No Cigar Use: No Alcohol: None Drugs: Denies - CARDIAC Hx Hypercholesterolemia: Yes Hx Hypertension: Yes - PULMONARY Hx Asthma: Yes Hx Bronchitis: Yes Hx Chronic Obstructive Pulmonary Disease (COPD): Yes - NEUROLOGICAL Hx Neurological Disorder: No - HEENT Hx HEENT Problems: No - RENAL Hx Chronic Kidney Disease: No - ENDOCRINE/METABOLIC Hx Endocrine Disorders: Yes Hx Diabetes Mellitus Type 2: Yes - HEMATOLOGICAL/ONCOLOGICAL Hx Blood Disorders: No - INTEGUMENTARY Hx Dermatological Problems: No - MUSCULOSKELETAL/RHEUMATOLOGICAL Hx Fractures: Yes (toe) - GASTROINTESTINAL Hx Gastrointestinal Disorders: Yes Hx Gastritis: Yes - GENITOURINARY/GYNECOLOGICAL Hx Genitourinary Disorders: No - PSYCHIATRIC Hx Anxiety: Yes Hx Substance Use: No - SURGICAL HISTORY Hx Surgeries: Yes Hx Orthopedic Surgery: Yes - ANESTHESIA Hx Anesthesia: Yes Hx Anesthesia Reactions: No Hx Malignant Hyperthermia: No Meds Allergies/Adverse Reactions: Allergies Allergy/AdvReac Type Severity Reaction Status Date / Time No Known Allergies Allergy Verified 08/24/18 15:13 - Medications Medications: Current Medications Albuterol Sulfate (Albuterol 0.042% Inhal Ashleigh (1.25mg/3ml) Ud) 1.25 mg INH RQ6 [facility] Last Admin: 08/25/18 07:55 Dose: 1.25 mg Azithromycin (Zithromax) 500 mg PO DAILY [facility]; Protocol Ergocalciferol (Drisdol 50,000 Intl Units Cap) 1 cap PO QWK [facility] Heparin Sodium (Porcine) (Heparin) 5,000 units SC Q12 [facility] Last Admin: 08/24/18 22:39 Dose: 5,000 units Hydrochlorothiazide (Microzide) 12.5 mg PO DAILY [facility] Insulin Aspart (Novolog) 0 unit SC ACHS [facility]; Protocol Lisinopril (Zestril) 20 mg PO DAILY [facility] Loratadine (Claritin) 5 mg PO DAILY [facility] Metformin HCl (Glucophage) 500 mg PO DAILY [facility] Methylprednisolone (Solu-Medrol) 40 mg IVP Q8 [facility] Last Admin: 08/25/18 05:37 Dose: 40 mg Montelukast Sodium (Singulair) 10 mg PO HS [facility] Last Admin: 08/24/18 22:38 Dose: 10 mg Pantoprazole Sodium (Protonix Ec Tab) 40 mg PO DAILY [facility] Rosuvastatin Calcium (Crestor) 5 mg PO HS [facility] Last Admin: 08/24/18 22:38 Dose: 5 mg Tramadol HCl (Ultram) 50 mg PO DAILY PRN PRN Reason: Pain, severe (8-10) Physical Exam - Constitutional Appears: Non-toxic, No Acute Distress - Head Exam Head Exam: ATRAUMATIC, NORMOCEPHALIC - Eye Exam Eye Exam: EOMI, Normal appearance - ENT Exam ENT Exam: Mucous Membranes Moist - Neck Exam Neck exam: Positive for: Normal Inspection - Respiratory Exam Respiratory Exam: Wheezes. absent: Accessory Muscle Use, Respiratory Distress - Cardiovascular Exam Cardiovascular Exam: RRR, +S1, +S2 - GI/Abdominal Exam GI & Abdominal Exam: Soft. absent: Tenderness - Rectal Exam Rectal Exam: Deferred - Extremities Exam Extremities exam: Negative for: calf tenderness, pedal edema - Back Exam Back exam: absent: CVA tenderness (L), CVA tenderness (R) - Neurological Exam Neurological exam: Alert, CN II-XII Intact, Oriented x3 - Psychiatric Exam Psychiatric exam: Normal Mood Results - Vital Signs Recent Vital Signs: Last Vital Signs Temp 98.1 F 08/25/18 00:11 Pulse 80 08/25/18 00:11 Resp 20 08/25/18 00:11 BP 165/88 H 08/25/18 00:11 Pulse Ox 98 08/25/18 00:22 - Labs Result Diagrams: 08/24/18 16:49 08/24/18 16:49 Labs: Laboratory Results - last 24 hr 08/24/18 08/24/18 08/25/18 16:49 16:49 07:32 WBC 7.7 RBC 3.58 L Hgb 10.8 L Hct 33.2 L MCV 92.5 MCH 30.0 MCHC 32.5 L RDW 15.0 H Plt Count 280 MPV 8.9 Neut % (Auto) 73.6 Lymph % (Auto) 21.5 [place] % (Auto) 4.3 Eos % (Auto) 0.2 Baso % (Auto) 0.4 Neut # (Auto) 5.7 Lymph # (Auto) 1.7 [place] # (Auto) 0.3 Eos # (Auto) 0.0 Baso # (Auto) 0.0 Sodium 139 Potassium 4.4 Chloride 106 Carbon Dioxide 24 Anion Gap 14 BUN 30 H Creatinine 0.7 Est GFR ( Amer) > 60 Est GFR (Non-Af Amer) > 60 POC Glucose (mg/dL) 156 H Random Glucose 122 H Calcium 9.2 Total Bilirubin 0.3 AST 34 ALT 37 Alkaline Phosphatase 45 Troponin I < 0.0120 NT-Pro-B Natriuret Pep 603 Total Protein 6.4 Albumin 3.8 Globulin 2.6 Albumin/Globulin Ratio 1.5 Assessment & Plan (1) COPD exacerbation Status: Acute (2) Diabetes Status: Acute (3) GERD (gastroesophageal reflux disease) Status: Acute (4) Hypertension Status: Acute - Assessment and Plan (Free Text) Assessment: 63 YO FEMALE WITH A HX MULT MED PROBS ADM WITH ACUTE EXAC COPD, SEVERE BRONCHITIS. CONT STEROIDS, TAPER TOLERATED. CONT NEB BD. ADVAIR., MONITOR O2 SAT. MONITOR PEAK FLOWS. AFEBRILE ON EMPIRIC AB., CXR REVIEWED. GI/DVT PROPHYLAXIS. SMOKING CESSATION. DISCUSSED WITH STAFF AT LENGTH.
[2018-08-25] MEDS: Pantoprazole 40 mg EC Tab PO SCH (11:01)
[2018-08-25] MEDS: (Novolog) Insulin Aspart, Recombinant 100 u/ml 10 ml vial SC SCH ×3 (13:08→21:31)
--- NOTE | 2018-08-25 20:12 | CARD ---
APPROVED REPORT Date of service: 08/24/2018 EKG Measurement Heart [id number] <Conclusion> Normal sinus rhythm Normal ECG
[2018-08-25] MEDS ORDERED: Promethazine DM 6.25 mg-15 mg/5 ml Syrup PO PRN (21:22)
[2018-08-26] MEDS: Albuterol 0.042% Inhal Sol (1.25 mg/3 mL) UD INH SCH ×4 (02:00→19:14)
[2018-08-26] MEDS: MethylPREDNISolone 40 mg Vial IVP SCH ×3 (05:23→22:38)
--- NOTE | 2018-08-26 08:22 | HP ---
HISTORY OF PRESENT ILLNESS: The patient is a 63-year-old female with history of hypertension and asthma. The patient came to the emergency room complaining of shortness of breath. The patient had shortness of breath for the past few days and was in the emergency room. The patient was in the emergency room three days ago, was treated with Solu-Medrol rather and was discharged. The patient came back again last night because of this persistent shortness of breath, not able to breathe on exertion, so the patient was evaluated, medication was given, again Solu-Medrol and Proventil nebulizer, but there was no major improvement. The patient was admitted to the floor. ALLERGIES: THE PATIENT HAS NO KNOWN ALLERGIES. PAST MEDICAL HISTORY: As I mentioned, history of hypertension, history of asthma, diabetes, gastritis, and hyperlipidemia. The patient was somewhat compliant to the medications. SOCIAL HISTORY: The patient is now a , did not have any children. FAMILY HISTORY: No inherited disease. REVIEW OF SYSTEMS: RESPIRATORY SYSTEM: Shortness of breath with minor effort, congestive cough. CARDIOVASCULAR: Denies any chest pain. GASTROINTESTINAL: Complaining of some epigastric discomfort. GENITOURINARY: No dysuria. NEUROLOGIC: The patient is somewhat weak. PHYSICAL EXAMINATION: GENERAL: The patient is alert, awake, and oriented x3. VITAL SIGNS: The patient has a blood pressure of 165/104, pulse 68, respirations 20, temperature is 97.8. HEENT: Head is normocephalic. NECK: Supple. No JVD. No carotid bruits. LUNGS: There is some coarse breath sound and wheezing. HEART: Regular rate and rhythm. ABDOMEN: Soft and obese, but there is tenderness in the epigastric area. EXTREMITIES: There is no edema, but she has some tenderness to the knees with flexion. LABORATORY DATA: The patient had some tests done. WBC 7.7, hemoglobin 10.8, hematocrit 32.2, and platelet is 280. Chemistries: Sodium 139, potassium 4.4, chloride 106, bicarb 24, BUN 30, creatinine 0.7, glucose 122, and BNP is 603. Troponin is less than 0.012, AST is 34, ALT 37, albumin 2.8. The patient has also a chest x-ray. The chest x-ray showed that the lungs are clear. No pneumothorax or pleural fluid seen. The patient had also an EKG that has shown normal sinus rhythm at the rate of 74. DIAGNOSES: The patient is admitted with diagnosis of: 1. Exacerbation of asthma. 2. Hypertension. 3. Dyslipidemia. 4. Obesity. PLAN: The patient will be put on medications including Solu-Medrol, Proventil nebulizer, Singulair, and blood pressure medication, and the patient will have a consult with Dr. Casey, Pulmonary. Pratik Block MD
[2018-08-26] MEDS: (Novolog) Insulin Aspart, Recombinant 100 u/ml 10 ml vial SC SCH ×4 (08:30→22:39)
[2018-08-26] MEDS: Pantoprazole 40 mg EC Tab PO SCH (10:47)
--- NOTE | 2018-08-26 18:53 | CP.PCM.PN ---
Subjective - Date & Time of Evaluation Date of Evaluation: 08/26/18 Time of Evaluation: 18:50 - Subjective Subjective: PT ALERT, FEELS BETTER. +COUGH. LESS SOB/ ROS; OTHERWISE NEG. Objective - Vital Signs/Intake and Output Vital Signs (last 24 hours): Temp Pulse Resp BP Pulse Ox 98.0 F 74 20 171/81 H 96 08/26/18 15:58 08/26/18 15:58 08/26/18 15:58 08/26/18 15:58 08/26/18 15:58 Intake and Output: 08/26/18 08/26/18 06:59 18:59 Intake Total 360 500 Balance 360 500 - Medications Medications: Current Medications Albuterol Sulfate (Albuterol 0.042% Inhal Ashleigh (1.25mg/3ml) Ud) 1.25 mg INH RQ6 [facility] Last Admin: 08/26/18 13:25 Dose: 1.25 mg Azithromycin (Zithromax) 500 mg PO DAILY [facility]; Protocol Last Admin: 08/26/18 10:49 Dose: 500 mg Ergocalciferol (Drisdol 50,000 Intl Units Cap) 1 cap PO QWK [facility] Heparin Sodium (Porcine) (Heparin) 5,000 units SC Q12 [facility] Last Admin: 08/26/18 10:50 Dose: 5,000 units Hydrochlorothiazide (Microzide) 12.5 mg PO DAILY [facility] Last Admin: 08/26/18 10:49 Dose: 12.5 mg Insulin Aspart (Novolog) 0 unit SC ACHS [facility]; Protocol Last Admin: 08/26/18 18:16 Dose: Not Given Lisinopril (Zestril) 20 mg PO DAILY [facility] Last Admin: 08/26/18 10:57 Dose: 20 mg Loratadine (Claritin) 5 mg PO DAILY [facility] Last Admin: 08/26/18 10:47 Dose: 5 mg Metformin HCl (Glucophage) 500 mg PO DAILY [facility] Last Admin: 08/26/18 10:46 Dose: 500 mg Methylprednisolone (Solu-Medrol) 40 mg IVP Q12 [facility] Montelukast Sodium (Singulair) 10 mg PO HS [facility] Last Admin: 08/25/18 21:30 Dose: 10 mg Pantoprazole Sodium (Protonix Ec Tab) 40 mg PO DAILY [facility] Last Admin: 08/26/18 10:47 Dose: 40 mg Promethazine HCl/Dextromethorphan (Phenergan Dm Syrup) 5 ml PO Q6H PRN PRN Reason: Cough Last Admin: 08/25/18 22:07 Dose: 5 ml Rosuvastatin Calcium (Crestor) 5 mg PO HS [facility] Last Admin: 08/25/18 21:30 Dose: 5 mg Tramadol HCl (Ultram) 50 mg PO DAILY PRN PRN Reason: Pain, severe (8-10) - Labs Labs: 08/24/18 16:49 08/24/18 16:49 - Constitutional Appears: No Acute Distress - Head Exam Head Exam: ATRAUMATIC, NORMOCEPHALIC - Eye Exam Eye Exam: EOMI, Normal appearance - ENT Exam ENT Exam: Mucous Membranes Moist - Neck Exam Neck Exam: Normal Inspection - Respiratory Exam Respiratory Exam: Wheezes Additional comments: BETTER AIR MOVEMENT. - Cardiovascular Exam Cardiovascular Exam: RRR, +S1, +S2 - GI/Abdominal Exam GI & Abdominal Exam: Soft. absent: Tenderness - Rectal Exam Rectal Exam: Deferred - Extremities Exam Extremities Exam: absent: Calf Tenderness, Pedal Edema - Back Exam Back Exam: absent: CVA tenderness (L), CVA tenderness (R) - Neurological Exam Neurological Exam: Alert, Awake, CN II-XII Intact, Oriented x3 - Psychiatric Exam Psychiatric exam: Normal Mood - Skin Skin Exam: absent: Rash Assessment and Plan (1) COPD exacerbation Status: Acute (2) Diabetes Status: Acute (3) GERD (gastroesophageal reflux disease) Status: Acute (4) Hypertension Status: Acute - Assessment and Plan (Free Text) Assessment: RESP STATUS IMPROVING. LESS BRONCHOSPASM., ON STEROID TAPER TOLERATED. CONT NEB BD, ADVAIR., SINGULAIR. CXR REVIEWED. AFEBRILE ON ZMAX. INCREASE OOB. DISCUSSED WTIH STAFF.
--- NOTE | 2018-08-26 22:24 | PN ---
DATE: 08/26/2018 SUBJECTIVE: Today, the patient is alert, awake and oriented. Denied any shortness of breath this time. No chest pain. Denied any cough. The patient is able to ambulate. PHYSICAL EXAMINATION: VITAL SIGNS: Blood pressure 168/87, pulse 71, respiration 20, temperature 97.2. hours, the blood pressure 171/81, pulse 74, respirations 20. NECK: Supple. LUNGS: She has some rhonchi noted much less than yesterday. HEART: Regular rate and rhythm. ABDOMEN: Soft, nontender. No palpable mass. EXTREMITIES: There is no edema. ASSESSMENT AND PLAN: The plan is that we are going to decrease the Solu-Medrol to 40 mg intravenous twice a day and continue aggressive ambulation and continue current medications. Case was discussed with Rafaela Simmons, the nurse practitioner. Pratik Block MD
[2018-08-27] MEDS: Albuterol 0.042% Inhal Sol (1.25 mg/3 mL) UD INH SCH ×3 (01:33→13:25)
[2018-08-27 08:10] LABS: BASO # 0.1 K/uL (0.0-0.2); BASO % 0.5 % (0.0-2.0); EOS % 0.2 % (0.0-4.0); HEMOGLOBIN 11.6 g/dL (11.0-16.0); LYMPH # 1.7 K/uL (1.0-4.3); LYMPH % 15.3 % (20.0-40.0); MEAN CELL VOLUME 92.8 fL (81.0-99.0); MEAN CORPUSCULAR HEMOGLOBIN 30.6 pg (27.0-31.0); MEAN PLATELET VOLUME 9.3 fL (7.2-11.7); MONO # 0.4 K/uL (0.0-0.8); MONO % 4.1 % (0.0-10.0); NEUT # 8.7 K/uL (1.8-7.0); NEUT % 79.9 % (50.0-75.0); NRBC % 0.1 % (0.0-2.0); RBC 3.78 Mil/uL (3.80-5.20); RED CELL DISTRIBUTION WIDTH 14.8 % (11.5-14.5); WHITE BLOOD COUNT 10.9 K/uL (4.8-10.8)
[2018-08-27 08:15] VITALS: O2SAT 96
[2018-08-27 08:22] LABS: ALB/GLOB RATIO 1.4 (1.0-2.1); ALBUMIN 3.6 g/dL (3.5-5.0); ALT/SGPT 28 U/L (9-52); AST/SGOT 19 U/L (14-36); BLOOD UREA NITROGEN 24 mg/dL (7-17); CALCIUM 9.1 mg/dl (8.6-10.4); GFR NON-AFRICAN AMERICAN > 60; HDL CHOLESTEROL 77 mg/dL (30-70)
[2018-08-27] MEDS: (Novolog) Insulin Aspart, Recombinant 100 u/ml 10 ml vial SC SCH ×2 (08:27→11:25)
[2018-08-27 08:31] LABS: LDL CHOLESTEROL 94 mg/dL (0-129)
[2018-08-27] MEDS: MethylPREDNISolone 40 mg Vial IVP SCH (11:00)
[2018-08-27] MEDS: Pantoprazole 40 mg EC Tab PO SCH (11:00)
--- NOTE | 2018-08-27 11:09 | CP.PCM.PN ---
Subjective - Date & Time of Evaluation Date of Evaluation: 08/27/18 Time of Evaluation: 11:06 - Subjective Subjective: PT ALERT, FEELS BETTER. AMBULATED. LESS SOB. LESS COUGH. ROS ; OTHERWISE NEG. Objective - Vital Signs/Intake and Output Vital Signs (last 24 hours): Temp Pulse Resp BP Pulse Ox 97.8 F 71 20 177/87 H 96 08/27/18 07:00 08/27/18 07:00 08/27/18 07:00 08/27/18 07:00 08/27/18 08:00 Intake and Output: 08/27/18 08/27/18 06:59 18:59 Intake Total 475 Balance 475 - Medications Medications: Current Medications Albuterol Sulfate (Albuterol 0.042% Inhal Ashleigh (1.25mg/3ml) Ud) 1.25 mg INH RQ6 [facility] Last Admin: 08/27/18 01:33 Dose: 1.25 mg Azithromycin (Zithromax) 500 mg PO DAILY [facility]; Protocol Last Admin: 08/26/18 10:49 Dose: 500 mg Ergocalciferol (Drisdol 50,000 Intl Units Cap) 1 cap PO QWK [facility] Heparin Sodium (Porcine) (Heparin) 5,000 units SC Q12 [facility] Last Admin: 08/26/18 22:39 Dose: 5,000 units Hydrochlorothiazide (Microzide) 12.5 mg PO DAILY [facility] Last Admin: 08/26/18 10:49 Dose: 12.5 mg Insulin Aspart (Novolog) 0 unit SC ACHS [facility]; Protocol Last Admin: 08/27/18 08:27 Dose: 2 unit Lisinopril (Zestril) 20 mg PO DAILY [facility] Last Admin: 08/26/18 10:57 Dose: 20 mg Loratadine (Claritin) 5 mg PO DAILY [facility] Last Admin: 08/26/18 10:47 Dose: 5 mg Metformin HCl (Glucophage) 500 mg PO DAILY [facility] Last Admin: 08/26/18 10:46 Dose: 500 mg Methylprednisolone (Solu-Medrol) 40 mg IVP Q12 [facility] Last Admin: 08/26/18 22:38 Dose: 40 mg Montelukast Sodium (Singulair) 10 mg PO HS [facility] Last Admin: 08/26/18 22:38 Dose: 10 mg Pantoprazole Sodium (Protonix Ec Tab) 40 mg PO DAILY [facility] Last Admin: 08/26/18 10:47 Dose: 40 mg Promethazine HCl/Dextromethorphan (Phenergan Dm Syrup) 5 ml PO Q6H PRN PRN Reason: Cough Last Admin: 08/25/18 22:07 Dose: 5 ml Rosuvastatin Calcium (Crestor) 5 mg PO HS [facility] Last Admin: 08/26/18 22:38 Dose: 5 mg Tramadol HCl (Ultram) 50 mg PO DAILY PRN PRN Reason: Pain, severe (8-10) - Labs Labs: 08/27/18 08:02 08/27/18 08:02 - Constitutional Appears: No Acute Distress - Head Exam Head Exam: ATRAUMATIC, NORMOCEPHALIC - Eye Exam Eye Exam: EOMI, Normal appearance - ENT Exam ENT Exam: Mucous Membranes Moist - Neck Exam Neck Exam: Normal Inspection - Respiratory Exam Respiratory Exam: absent: Rhonchi, Wheezes, Respiratory Distress - Cardiovascular Exam Cardiovascular Exam: RRR, +S1, +S2 - GI/Abdominal Exam GI & Abdominal Exam: Soft. absent: Tenderness - Rectal Exam Rectal Exam: Deferred - Extremities Exam Extremities Exam: absent: Calf Tenderness, Pedal Edema - Back Exam Back Exam: absent: CVA tenderness (L), CVA tenderness (R) - Neurological Exam Neurological Exam: Alert, Awake, CN II-XII Intact, Oriented x3 - Psychiatric Exam Psychiatric exam: Normal Mood - Skin Skin Exam: absent: Rash Assessment and Plan (1) COPD exacerbation Status: Acute (2) Diabetes Status: Acute (3) GERD (gastroesophageal reflux disease) Status: Acute (4) Hypertension Status: Acute - Assessment and Plan (Free Text) Assessment: RESP STATUS IMPROVING., TOLERATING STEROID TAPER,. CONT NEB BD,. ADVAIR. AND SINGULAIR. AFEBRILE ON ZMAX. MONITOR O2 SAT ON ROOM AIR. CXR REVIEWED. ENCOURAGE AMBULATION. DISCUSSED WITH STAFF.
[2018-08-27 16:06] VITALS: BP 166/97; PULSE 76; TEMP 97.5
--- NOTE | 2018-08-28 01:27 | PN ---
DATE: 08/27/2018 SUBJECTIVE: Today, the patient is alert and awake, seen and evaluated. Denies any shortness of breath. No chest pain, no palpitation. PHYSICAL EXAMINATION: VITAL SIGNS: The patient has a blood pressure of 162/97, pulse 76, respirations 20, temperature 97.5. NECK: Supple. No JVD. HEART: Regular rate and rhythm. LUNGS: Clear today. ABDOMEN: Soft, not obese. Mild epigastric tenderness. EXTREMITIES: There is no edema. LABORATORY DATA: WBC today was 10.9, hemoglobin 11.3, hematocrit 35.1, and platelets are 320. Chemistry: Showed that the sodium 140, potassium 4.6, chloride 33, BUN 24, creatinine 0.8. So the patient at this point, wants to go home. We will consider to discharge this patient today. We will continue to follow the patient in the office. Pratik Block MD
--- NOTE | 2018-08-28 19:21 | DS ---
HOSPITAL COURSE: This patient is a 63-year-old female with a history of asthma and hypertension. The patient came to the emergency room because of shortness of breath. The patient was in the emergency room two days before and had received medications including Solu-Medrol and Proventil, was discharged home, but the patient returned two days later with similar symptom and received similar medications, but the patient remained short of breath, so the patient was then admitted. On physical exam, we found the patient to be alert and awake, but shortness of breath . The patient has received medications including Solu-Medrol 40 mg IV every 8 hours and also Proventil nebulizer and other medications. The patient was improved. Two days later, the patient was free of shortness of breath and wheezing. So at this time, the patient wants to go home. We will discharge the patient home on prednisone 10 mg, Singulair and also Proventil nebulizer. We will continue to follow this patient at home. Pratik Block MD
[2018-08-31] MEDS ORDERED: Ergocalciferol 50,000 Intl Units Cap PO SCH (10:00)
== END 2018-08-27 17:18 | disposition home or self-care (01) ==
LOC: C.ER 15:07 → C.9E 17:44 → C.3T 19:46
PROVIDERS: ADMIT Specialist; ATTEND Specialist
DX: J45.901 Unspecified asthma with (acute) exacerbation (principal); J44.1 Chronic obstructive pulmonary disease with (acute) exacerbation; I10 Essential (primary) hypertension; E78.5 Hyperlipidemia, unspecified; F17.210 Nicotine dependence, cigarettes, uncomplicated; K21.9 Gastro-esophageal reflux disease without esophagitis; E11.9 Type 2 diabetes mellitus without complications; E66.9 Obesity, unspecified; E78.00 Pure hypercholesterolemia, unspecified; Z68.36 Body mass index [BMI] 36.0-36.9, adult
CPT/HCPCS: 36415; 71045; 80053; 80061; 82948; 83735; 83880; 84100; 84484; 85025; 93005; 94640; 96374; 99285; G0378; J1644; J2920; J2930

== ENCOUNTER 2018-09-27 13:36 | Inpatient (IN) | payer MEDICARE ==
[2018-09-27] MEDS ORDERED: Albuterol-Ipratrop 3 mg / 0.5 (3 ml) UD ONE ×2 (13:53→15:30)
--- NOTE | 2018-09-27 14:03 | C.PDOC ---
History Of Present Illness 63 y/o female, with history of asthma and uses nebulizers at home, comes in for cold and respiratory symptoms since last week. Patient was seen Dr. Block 2 days ago and states she was fine. Yesterday, patient started having more trouble breathing and wheezing. Denies having any fever, chills, chest pain, or other symptoms. She reports shes been using her nebulizers more often, used twice today without relief. She has audible wheezing and SOB. Patient is on Dulera and Proair inhalers, and has been using all her medications as directed. Time Seen by Provider: 09/27/18 13:49 History Per: Patient History/Exam Limitations: no limitations Onset/Duration Of Symptoms: Days Current Symptoms Are (Timing): Still Present Past Medical History Reviewed: Historical Data, Nursing Documentation, Vital Signs - Medical History PMH: Anxiety, Asthma, Bronchitis, COPD, Diabetes (Doesn't know the name of medications), Fractures (toe), Gastritis, HTN, Hypercholesterolemia Denies: Chronic Kidney Disease Surgical History: Endoscopy - [facility] Procedures NEBULIZER THERAPY (01/08/04) Family History: States: No Known Family Hx - Social History Hx Tobacco Use: Yes Hx Alcohol Use: Yes (occassional) Hx Substance Use: No - Immunization History Hx Tetanus Toxoid Vaccination: No Hx Influenza Vaccination: Yes Hx Pneumococcal Vaccination: Yes Review Of Systems Constitutional: Negative for: Fever, Chills ENT: Negative for: Nose Congestion Cardiovascular: Negative for: Chest Pain Respiratory: Positive for: Shortness of Breath, Wheezing Gastrointestinal: Negative for: Vomiting, Abdominal Pain, Diarrhea Skin: Negative for: Rash Physical Exam - Physical Exam Appears: Non-toxic, No Acute Distress Skin: Warm, Dry Head: Atraumatic, Normacephalic Eye(s): bilateral: Normal Inspection Oral Mucosa: Moist Throat: Normal, No Erythema, No Exudate Cardiovascular: Rhythm Regular, No Murmur Respiratory: No Rales, No Rhonchi, Wheezing (diffuse wheezing expiratory and inspiratory throughout) Gastrointestinal/Abdominal: Soft, No Tenderness Extremity: Bilateral: Atraumatic, Normal Color And Temperature, Normal ROM Neurological/Psych: Oriented x3, Normal Speech ED Course And Treatment - Laboratory Results Result Diagrams: 09/27/18 15:21 09/27/18 15:21 Lab Interpretation: No Acute Changes O2 Sat by Pulse Oximetry: 98 Pulse Ox Interpretation: Normal - Other Rad CXR X-Ray: Viewed By Me, Read By Radiologist Interpretation: FINDINGS: LUNGS: No active pulmonary disease. PLEURA: No significant pleural effusion identified, no pneumothorax apparent. CARDIOVASCULAR: No aortic atherosclerotic calcification present. Normal cardiac size. No pulmonary vascular congestion. OSSEOUS STRUCTURES: No significant abnormalities. VISUALIZED UPPER ABDOMEN: Normal. OTHER FINDINGS: None. IMPRESSION: No active disease. Reevaluation Time: 17:19 Reassessment Condition: Unchanged (Patient still with audible wheezing and short ness of breath with cough.) - Physician Consult Information Time Consulting Physician Contacted: 17:20 Physician Contacted: Pratik Block Outcome Of Conversation: He agrees to accept patient on his service for treatment of asthma exacerbation. Medical Decision Making Medical Decision Making: Plan: --Labs --Chest XR --Solumedrol IV --Nebulizer Treatment Disposition - Disposition Disposition: HOSPITALIZED Disposition Time: 17:22 Condition: FAIR - POA Present On Arrival: None - Clinical Impression Clinical Impression: Asthma exacerbation - Scribe Statement The provider has reviewed the documentation as recorded by the Marilu Carreon Provider Attestation: All medical record entries made by the Jesibjoe were at my direction and personally dictated by me. I have reviewed the chart and agree that the record accurately reflects my personal performance of the history, physical exam, medical decision making, and the department course for this patient. I have also personally directed, reviewed, and agree with the discharge instructions and disposition.
[2018-09-27 14:10] VITALS: BMI 43.9
[2018-09-27] MEDS ORDERED: Albuterol-Ipratrop 3 mg / 0.5 (3 ml) UD IH STA (15:14)
[2018-09-27] MEDS ORDERED: Albuterol 0.083% Inhal Sol (2.5 mg/3 mL) UD IH STA (15:14)
[2018-09-27] MEDS ORDERED: Albuterol 0.083% Inhal Sol (2.5 mg/3 mL) UD ONE (15:30)
[2018-09-27 15:31] LABS: BASO # 0.1 K/uL (0.0-0.2); BASO % 0.8 % (0.0-2.0); EOS # 0.4 K/uL (0.0-0.7); EOS % 6.2 % (0.0-4.0); HEMOGLOBIN 12.3 g/dL (11.0-16.0); LYMPH % 31.1 % (20.0-40.0); MEAN CELL VOLUME 92.2 fL (81.0-99.0); MEAN CORPUSCULAR HEMOGLOBIN 29.6 pg (27.0-31.0); MEAN CORPUSCULAR HGB CONC 32.1 g/dL (33.0-37.0); MONO # 0.5 K/uL (0.0-0.8); MONO % 7.8 % (0.0-10.0); NEUT # 3.4 K/uL (1.8-7.0); NEUT % 54.1 % (50.0-75.0); NRBC % 0.1 % (0.0-2.0); RBC 4.15 Mil/uL (3.80-5.20); RED CELL DISTRIBUTION WIDTH 14.5 % (11.5-14.5); WHITE BLOOD COUNT 6.3 K/uL (4.8-10.8)
[2018-09-27 15:37] LABS: ALB/GLOB RATIO 1.5 (1.0-2.1); ALBUMIN 4.4 g/dL (3.5-5.0); ALT/SGPT 25 U/L (9-52); AST/SGOT 26 U/L (14-36); BLOOD UREA NITROGEN 24 mg/dL (7-17); CALCIUM 9.3 mg/dl (8.6-10.4); GFR NON-AFRICAN AMERICAN > 60
--- NOTE | 2018-09-27 15:52 | RAD ---
Date of service: 09/27/2018 HISTORY: SOB COMPARISON: Comparison made with chest radiograph 08/24/2018. FINDINGS: LUNGS: No active pulmonary disease. PLEURA: No significant pleural effusion identified, no pneumothorax apparent. CARDIOVASCULAR: No aortic atherosclerotic calcification present. Normal cardiac size. No pulmonary vascular congestion. OSSEOUS STRUCTURES: No significant abnormalities. VISUALIZED UPPER ABDOMEN: Normal. OTHER FINDINGS: None. IMPRESSION: No active disease.
[2018-09-27] MEDS: Albuterol 0.083% Inhal Sol (2.5 mg/3 mL) UD IH PRN (20:58)
[2018-09-27] MEDS: MethylPREDNISolone 40 mg Vial IVP SCH (22:01)
[2018-09-27] MEDS: (Novolog) Insulin Aspart, Recombinant 100 u/ml 10 ml vial SC SCH (22:01)
[2018-09-27 23:46] VITALS: RESP 20
[2018-09-28] MEDS: MethylPREDNISolone 40 mg Vial IVP SCH ×3 (05:42→21:25)
[2018-09-28] MEDS: Albuterol 0.083% Inhal Sol (2.5 mg/3 mL) UD IH PRN (06:02)
[2018-09-28 07:16] LABS: HEMOGLOBIN 12.6 g/dL (11.0-16.0); MEAN CELL VOLUME 92.7 fL (81.0-99.0); MEAN CORPUSCULAR HEMOGLOBIN 29.8 pg (27.0-31.0); MEAN CORPUSCULAR HGB CONC 32.1 g/dL (33.0-37.0); MEAN PLATELET VOLUME 8.2 fL (7.2-11.7); RBC 4.21 Mil/uL (3.80-5.20); RED CELL DISTRIBUTION WIDTH 14.8 % (11.5-14.5); WHITE BLOOD COUNT 9.1 K/uL (4.8-10.8)
[2018-09-28 07:48] LABS: ALB/GLOB RATIO 1.7 (1.0-2.1); ALBUMIN 4.6 g/dL (3.5-5.0); ALT/SGPT 25 U/L (9-52); AST/SGOT 27 U/L (14-36); BLOOD UREA NITROGEN 22 mg/dL (7-17); CALCIUM 9.6 mg/dl (8.6-10.4); GFR NON-AFRICAN AMERICAN > 60
[2018-09-28] MEDS: (Novolog) Insulin Aspart, Recombinant 100 u/ml 10 ml vial SC SCH ×4 (08:06→21:20)
[2018-09-28] MEDS ORDERED: Home Med 1 UNIT (Meloxicam [Meloxicam] 15 MG) PO SCH (10:00)
--- NOTE | 2018-09-28 10:35 | CP.PCM.CON ---
History of Present Illness - History of Present Illness History of Present Illness: CHART REVIEWED. PT SEEN AND EXAMINED. 63 YO B FEMALE WITH A HX COPD, HTN, DM, HYPERLIPIDEMIA, GERD, ADM WITH INCREASED MOD-SEVERE SOB WITH MIN EXERTION X 3 DAYS., WORSE WITH SEVERE COLD WEATHER NOW. NO CP, +CHEST TIGHTNESS, +COUGH +WHITE SPUTUM, NO RELIEF WITH HOME NEB ~4X/DAY OR PO AB STARTED LAST WK. COMPLIANT WITH SYMBICORT BID AND SINGULAIR. NO N/V NO DIARRHEA. QUIT SMOKING LAST MONTH. LAST EXAC LAST MONTH, TAPERED OFF PRED. Review of Systems - Review of Systems All systems: reviewed and no additional remarkable complaints except - Constitutional Constitutional: Weakness. absent: Chills, Fever - EENT Eyes: absent: Change in Vision Ears: absent: Ear Pain Nose/Mouth/Throat: absent: Nasal Congestion - Cardiovascular Cardiovascular: absent: Chest Pain - Respiratory Respiratory: Cough, Dyspnea, Dyspnea on Exertion, Wheezing, Chest Congestion - Gastrointestinal Gastrointestinal: absent: Diarrhea, Nausea, Vomiting - Genitourinary Genitourinary: absent: Difficulty Urinating - Musculoskeletal Musculoskeletal: absent: Myalgias - Integumentary Integumentary: absent: Rash - Neurological Neurological: absent: Confusion, Focal Weakness - Psychiatric Psychiatric: absent: Confusion - Endocrine Endocrine: absent: Change in Body Appearance - Hematologic/Lymphatic Hematologic: absent: Easy Bruising Past Patient History - Infectious Disease Hx of Infectious Diseases: None - Past Medical History & Family History Past Medical History?: Yes Past Family History: Reviewed and not pertinent Pertinent Family History: HTN - Past Social History Smoking Status: Former Smoker Chewing Tobacco Use: No Cigar Use: No Alcohol: None Drugs: Denies - CARDIAC Hx Hypercholesterolemia: Yes Hx Hypertension: Yes - PULMONARY Hx Respiratory Disorders: Yes Hx Asthma: Yes Hx Bronchitis: Yes Hx Chronic Obstructive Pulmonary Disease (COPD): Yes Hx Respiratory Tract Infection: Yes - NEUROLOGICAL Hx Neurological Disorder: No - HEENT Hx HEENT Problems: No - RENAL Hx Chronic Kidney Disease: No - ENDOCRINE/METABOLIC Hx Endocrine Disorders: Yes Hx Diabetes Mellitus Type 2: Yes - HEMATOLOGICAL/ONCOLOGICAL Hx Blood Disorders: No - INTEGUMENTARY Hx Dermatological Problems: No - MUSCULOSKELETAL/RHEUMATOLOGICAL Hx Falls: No - GASTROINTESTINAL Hx Gastrointestinal Disorders: Yes Hx Gastritis: Yes - GENITOURINARY/GYNECOLOGICAL Hx Genitourinary Disorders: No - PSYCHIATRIC Hx Psychophysiologic Disorder: No Hx Substance Use: No - SURGICAL HISTORY Hx Surgeries: Yes Hx Orthopedic Surgery: Yes (right foot, nasal.) - ANESTHESIA Hx Anesthesia: Yes Hx Anesthesia Reactions: No Hx Malignant Hyperthermia: No Meds Allergies/Adverse Reactions: Allergies Allergy/AdvReac Type Severity Reaction Status Date / Time No Known Allergies Allergy Verified 08/24/18 15:13 - Medications Medications: Current Medications Albuterol Sulfate (Albuterol 0.083% Inhal Ashleigh (2.5 Mg/3 Ml) Ud) 2.5 mg IH RQ6 PRN PRN Reason: wheeze Last Admin: 09/28/18 06:02 Dose: 2.5 mg Azithromycin (Zithromax) 500 mg PO DAILY [facility]; Protocol Baclofen (Lioresal) 10 mg PO BID [facility] Enoxaparin Sodium (Lovenox) 40 mg SC DAILY [facility] Ergocalciferol (Drisdol 50,000 Intl Units Cap) 1 cap PO QWK [facility] Home Med (Meloxicam [Meloxicam]) 15 mg PO DAILY [facility] Hydrochlorothiazide (Microzide) 12.5 mg PO DAILY [facility] Insulin Aspart (Novolog) 0 unit SC ACHS [facility]; Protocol Last Admin: 09/28/18 08:06 Dose: 1 units Lisinopril (Zestril) 20 mg PO DAILY [facility] Metformin HCl (Glucophage) 500 mg PO DAILY [facility] Methylprednisolone (Solu-Medrol) 40 mg IVP Q8 [facility] Last Admin: 09/28/18 05:42 Dose: 40 mg Montelukast Sodium (Singulair) 10 mg PO HS [facility] Pantoprazole Sodium (Protonix Ec Tab) 40 mg PO DAILY [facility] Rosuvastatin Calcium (Crestor) 5 mg PO HS [facility] Last Admin: 09/27/18 22:01 Dose: 5 mg Physical Exam - Constitutional Appears: Non-toxic - Head Exam Head Exam: ATRAUMATIC, NORMOCEPHALIC - Eye Exam Eye Exam: EOMI, Normal appearance - ENT Exam ENT Exam: Mucous Membranes Moist - Neck Exam Neck exam: Positive for: Normal Inspection - Respiratory Exam Respiratory Exam: Decreased Breath Sounds, Prolonged Expiratory Phase, Wheezes. absent: Accessory Muscle Use - Cardiovascular Exam Cardiovascular Exam: RRR, +S1, +S2 - GI/Abdominal Exam GI & Abdominal Exam: Soft. absent: Tenderness - Rectal Exam Rectal Exam: Deferred - Extremities Exam Extremities exam: Negative for: calf tenderness, pedal edema - Back Exam Back exam: absent: CVA tenderness (L), CVA tenderness (R) - Neurological Exam Neurological exam: Alert, CN II-XII Intact, Oriented x3 - Psychiatric Exam Psychiatric exam: Normal Mood - Skin Skin Exam: Normal Color Results - Vital Signs Recent Vital Signs: Last Vital Signs Temp 98.1 F 09/28/18 07:00 Pulse 84 09/28/18 07:00 Resp 20 09/28/18 07:00 BP 159/90 H 09/28/18 07:00 Pulse Ox 100 09/28/18 07:00 - Labs Result Diagrams: 09/28/18 07:25 09/28/18 07:08 Labs: Laboratory Results - last 24 hr 09/27/18 09/27/18 09/27/18 15:21 15:21 21:42 WBC 6.3 RBC 4.15 Hgb 12.3 Hct 38.3 MCV 92.2 MCH 29.6 MCHC 32.1 L RDW 14.5 Plt Count 379 MPV 8.0 Neut % (Auto) 54.1 Lymph % (Auto) 31.1 [place] % (Auto) 7.8 Eos % (Auto) 6.2 H Baso % (Auto) 0.8 Neut # (Auto) 3.4 Lymph # (Auto) 2.0 [place] # (Auto) 0.5 Eos # (Auto) 0.4 Baso # (Auto) 0.1 Sodium 140 Potassium 3.7 Chloride 103 Carbon Dioxide 29 Anion Gap 12 BUN 24 H Creatinine 0.7 Est GFR ( Amer) > 60 Est GFR (Non-Af Amer) > 60 POC Glucose (mg/dL) 235 H Random Glucose 98 D Hemoglobin A1c Calcium 9.3 Total Bilirubin 0.3 AST 26 ALT 25 Alkaline Phosphatase 52 Total Protein 7.3 Albumin 4.4 Globulin 2.9 Albumin/Globulin Ratio 1.5 09/28/18 09/28/18 09/28/18 07:08 07:09 07:25 WBC 9.1 RBC 4.21 Hgb 12.6 Hct 39.1 MCV 92.7 MCH 29.8 MCHC 32.1 L RDW 14.8 H Plt Count 398 MPV 8.2 Neut % (Auto) Lymph % (Auto) [place] % (Auto) Eos % (Auto) Baso % (Auto) Neut # (Auto) Lymph # (Auto) [place] # (Auto) Eos # (Auto) Baso # (Auto) Sodium 139 Potassium 4.5 Chloride 103 Carbon Dioxide 27 Anion Gap 14 BUN 22 H Creatinine 0.7 Est GFR ( Amer) > 60 Est GFR (Non-Af Amer) > 60 POC Glucose (mg/dL) Random Glucose 174 H D Hemoglobin A1c 6.4 Calcium 9.6 Total Bilirubin 0.3 AST 27 ALT 25 Alkaline Phosphatase 58 Total Protein 7.4 Albumin 4.6 Globulin 2.8 Albumin/Globulin Ratio 1.7 09/28/18 07:43 WBC RBC Hgb Hct MCV MCH MCHC RDW Plt Count MPV Neut % (Auto) Lymph % (Auto) [place] % (Auto) Eos % (Auto) Baso % (Auto) Neut # (Auto) Lymph # (Auto) [place] # (Auto) Eos # (Auto) Baso # (Auto) Sodium Potassium Chloride Carbon Dioxide Anion Gap BUN Creatinine Est GFR ( Amer) Est GFR (Non-Af Amer) POC Glucose (mg/dL) 192 H Random Glucose Hemoglobin A1c Calcium Total Bilirubin AST ALT Alkaline Phosphatase Total Protein Albumin Globulin Albumin/Globulin Ratio Assessment & Plan (1) Bronchitis Status: Acute (2) COPD exacerbation Status: Acute (3) Diabetes Status: Acute (4) GERD (gastroesophageal reflux disease) Status: Acute (5) Hyperlipidemia Status: Acute (6) Hypertension Status: Acute - Assessment and Plan (Free Text) Assessment: 63 YO FEMALE WITH A HX MULT MED PROBS ADM WITH ACUTE EXAC COPD +ACUTE BRONCHITIS, NO EVID PNA ON CXR; CONT NEB BD., BREO, MONITOR O2 SAT. STEROID TAPER TOLERATED; EMPIRIC AB. CXR REVIEWED. GI / DVT PROPHYLAXIS. DISCUSSED WITH STAFF AT LENGTH. TIME SPENT 1HR.
[2018-09-28] MEDS: Pantoprazole 40 mg EC Tab PO SCH (11:05)
[2018-09-28] MEDS: Enoxaparin 40 mg Syringe SC SCH (11:06)
[2018-09-28] MEDS: Albuterol 0.083% Inhal Sol (2.5 mg/3 mL) UD IH SCH ×3 (12:15→20:00)
[2018-09-28] MEDS: Promethazine/Cod 6.25mg-10mg/5ml Syr UD PO PRN (12:16)
[2018-09-29] MEDS: Albuterol 0.083% Inhal Sol (2.5 mg/3 mL) UD IH SCH ×7 (01:13→20:13)
[2018-09-29] MEDS: Promethazine/Cod 6.25mg-10mg/5ml Syr UD PO PRN (05:30)
[2018-09-29] MEDS: MethylPREDNISolone 40 mg Vial IVP SCH ×2 (05:32→17:35)
[2018-09-29] MEDS: Fluticasone-Vilanterol 100/25mcg Diskus INH SCH (07:35)
[2018-09-29] MEDS: Pantoprazole 40 mg EC Tab PO SCH ×2 (08:05→10:37)
[2018-09-29] MEDS: (Novolog) Insulin Aspart, Recombinant 100 u/ml 10 ml vial SC SCH ×4 (08:06→21:27)
[2018-09-29] MEDS ORDERED: Pneumococcal 23-Valent Vaccine IM ONE (10:00)
[2018-09-29] MEDS: Enoxaparin 40 mg Syringe SC SCH (10:36)
--- NOTE | 2018-09-29 11:04 | HP ---
HISTORY OF PRESENT ILLNESS: The patient is a 63-year-old female with history of asthma and hypertension. The patient uses a nebulizer at home. The patient is short of breath for the past two days and worsening progressively. The patient states that she was fine before but was accompanied with wheeze. Now, the patient came to the emergency room, had received some medications including nebulizer versus albuterol. The patient is to be discharged. The patient was admitted for further followup. ALLERGIES: THE PATIENT HAS NO KNOWN ALLERGIES. SOCIAL HISTORY: The patient is and has no children. He used to smoke but the patient decreased smoking now and living with her parents for the past two weeks. FAMILY HISTORY: No inherited disease. REVIEW OF SYSTEMS: RESPIRATORY SYSTEM: The patient complains of coughing and shortness of breath at rest and worsened with exertion. CARDIOVASCULAR: The patient denies any chest pain or palpitation. GASTROINTESTINAL: No nausea or vomiting. GENITOURINARY: No dysuria. NEUROLOGIC: The patient is somewhat weak. PHYSICAL EXAMINATION: GENERAL: The patient is alert and awake and oriented x3, able to speak full sentence now. VITAL SIGNS: Blood pressure is 147/82, pulse 88, respirations 20, temperature 98% on nasal cannula. NECK: Supple. LUNGS: Inspiratory and expiratory wheezing. HEART: Regular rate and rhythm. ABDOMEN: Soft and obese. No tenderness. EXTREMITIES: There is no edema. NEUROLOGIC: The patient is alert and awake. No motor and sensory deficit. LABORATORY DATA: The patient has some tests done. Labs showed a WBC of 6.3, hemoglobin 12.2, hematocrit 38.3, and platelet is 279. Chemistry showed that the sodium 129, potassium 4.5, chloride 103, BUN 22, creatinine 0.7, and glucose 225 and 174. Also, the patient had a chest x-ray done. The chest x-ray showed no acute pulmonary disease. ASSESSMENT AND PLAN: The patient admitted with diagnoses of exacerbation of asthma and also hypertension and obesity. The patient will have a consult with Dr. Casey. The plan is that we are going to increase the Solu-Medrol every 6 hours every 4 hours [id number] and also ordered. The case was reviewed and discussed with Rafaela Simmons, the nurse practitioner. Pratik Block MD [facility] # [id number]
--- NOTE | 2018-09-29 11:32 | CP.PCM.PN ---
Subjective - Date & Time of Evaluation Date of Evaluation: 09/29/18 Time of Evaluation: 11:29 - Subjective Subjective: PT ALERT, FEELS SL. BETTER. +COUGH +SPUTUM., LESS SOB. . ROS; OTHERWISE NEG. Objective - Vital Signs/Intake and Output Vital Signs (last 24 hours): Temp Pulse Resp BP Pulse Ox 97.9 F 78 20 151/88 H 98 09/29/18 07:00 09/29/18 07:00 09/29/18 07:00 09/29/18 07:00 09/29/18 07:00 Intake and Output: 09/29/18 09/29/18 06:59 18:59 Intake Total 510 Balance 510 - Medications Medications: Current Medications Albuterol Sulfate (Albuterol 0.083% Inhal Ashleigh (2.5 Mg/3 Ml) Ud) 2.5 mg IH Q4 [facility] Last Admin: 09/29/18 07:35 Dose: 2.5 mg Baclofen (Lioresal) 10 mg PO BID [facility] Last Admin: 09/29/18 10:37 Dose: 10 mg Enoxaparin Sodium (Lovenox) 40 mg SC DAILY [facility] Last Admin: 09/29/18 10:36 Dose: 40 mg Ergocalciferol (Drisdol 50,000 Intl Units Cap) 1 cap PO QWK [facility] Fluticasone/Vilanterol (Breo Ellipta 100-25 Mcg Inh) 1 puff INH RQD [facility] Last Admin: 09/29/18 07:35 Dose: 1 puff Home Med (Meloxicam [Meloxicam]) 15 mg PO DAILY [facility] Hydrochlorothiazide (Microzide) 12.5 mg PO DAILY [facility] Last Admin: 09/29/18 10:36 Dose: 12.5 mg Insulin Aspart (Novolog) 0 unit SC ACHS [facility]; Protocol Last Admin: 09/29/18 08:06 Dose: 2 units Lisinopril (Zestril) 20 mg PO DAILY [facility] Last Admin: 09/29/18 10:36 Dose: 20 mg Metformin HCl (Glucophage) 500 mg PO DAILY [facility] Last Admin: 09/29/18 10:36 Dose: 500 mg Methylprednisolone (Solu-Medrol) 40 mg IVP Q8 [facility] Last Admin: 09/29/18 05:32 Dose: 40 mg Montelukast Sodium (Singulair) 10 mg PO HS [facility] Last Admin: 09/28/18 21:25 Dose: 10 mg Pantoprazole Sodium (Protonix Ec Tab) 40 mg PO DAILY [facility] Last Admin: 09/29/18 10:37 Dose: Not Given Promethazine HCl/Codeine (Phenergan/Codeine Oral Syrup) 5 ml PO Q6 PRN PRN Reason: Cough and congestion Last Admin: 09/29/18 05:30 Dose: 5 ml Rosuvastatin Calcium (Crestor) 5 mg PO [facility] Last Admin: 09/28/18 21:25 Dose: 5 mg - Labs Labs: 09/28/18 07:25 09/28/18 07:08 - Constitutional Appears: No Acute Distress - Head Exam Head Exam: ATRAUMATIC, NORMOCEPHALIC - Eye Exam Eye Exam: EOMI, Normal appearance - ENT Exam ENT Exam: Mucous Membranes Moist - Neck Exam Neck Exam: Normal Inspection - Respiratory Exam Respiratory Exam: Decreased Breath Sounds, Prolonged Expiratory Phase, Wheezes Additional comments: BETTER AIR MOVEMENT. - Cardiovascular Exam Cardiovascular Exam: RRR, +S1, +S2 - GI/Abdominal Exam GI & Abdominal Exam: Soft. absent: Tenderness - Rectal Exam Rectal Exam: Deferred - Extremities Exam Extremities Exam: absent: Calf Tenderness, Pedal Edema - Back Exam Back Exam: absent: CVA tenderness (L), CVA tenderness (R), rash noted - Neurological Exam Neurological Exam: Alert, Awake, CN II-XII Intact, Oriented x3 - Psychiatric Exam Psychiatric exam: Normal Mood - Skin Skin Exam: absent: Rash Assessment and Plan (1) Bronchitis Status: Acute (2) COPD exacerbation Status: Acute (3) Diabetes Status: Acute (4) GERD (gastroesophageal reflux disease) Status: Acute (5) Hyperlipidemia Status: Acute (6) Hypertension Status: Acute - Assessment and Plan (Free Text) Assessment: RESP STATUS IMPROVING. LESS BRONCHOSPASM., ON STEROID TAPER. CONT NEB BD., BREO. MONITOR O2 SAT. CXR REVIEWED. CONT AB, AFEBRILE. INCREASE OOB., MONITOR PEAK FLOWS. DISCUSSED WITH STAFF AT LENGTH. TIME SPENT 40 MIN.
--- NOTE | 2018-09-29 23:28 | PN ---
DATE: 09/29/2018 SUBJECTIVE: Today, the patient is alert and awake, was seen early this morning. Does not have any shortness of breath at rest but still having some shortness of breath on exertion, decreasing cough. PHYSICAL EXAMINATION: VITAL SIGNS: The patient has blood pressure of 135/79, pulse 86, respirations 20, and temperature 98 degrees Fahrenheit. NECK: Supple. LUNGS: Some expiratory wheezing. HEART: Regular rate and rhythm. ABDOMEN: Soft and nontender. EXTREMITIES: There is no edema. PLAN: We are going to decrease the Solu-Medrol to 40 mg every 12 hours, and we are going to continue the rest of the medications. The case was discussed with Elizabeth Eli, nurse practitioner. Pratik Block MD
[2018-09-30] MEDS: Albuterol 0.083% Inhal Sol (2.5 mg/3 mL) UD IH SCH ×6 (04:12→20:44)
[2018-09-30] MEDS: MethylPREDNISolone 40 mg Vial IVP SCH ×2 (05:54→17:25)
[2018-09-30 06:17] LABS: BASO % 0.3 % (0.0-2.0); HEMOGLOBIN 12.4 g/dL (11.0-16.0); LYMPH # 1.8 K/uL (1.0-4.3); MEAN CELL VOLUME 91.3 fL (81.0-99.0); MEAN CORPUSCULAR HEMOGLOBIN 29.5 pg (27.0-31.0); MEAN CORPUSCULAR HGB CONC 32.3 g/dL (33.0-37.0); MEAN PLATELET VOLUME 8.3 fL (7.2-11.7); MONO # 0.8 K/uL (0.0-0.8); MONO % 5.4 % (0.0-10.0); NEUT # 12.1 K/uL (1.8-7.0); NEUT % 82.3 % (50.0-75.0); RBC 4.21 Mil/uL (3.80-5.20); RED CELL DISTRIBUTION WIDTH 14.7 % (11.5-14.5)
[2018-09-30 06:25] LABS: WHITE BLOOD COUNT 14.7 K/uL (4.8-10.8)
[2018-09-30] MEDS: Promethazine/Cod 6.25mg-10mg/5ml Syr UD PO PRN ×2 (06:30→16:30)
[2018-09-30] MEDS: Pantoprazole 40 mg EC Tab PO SCH (06:30)
[2018-09-30 06:32] LABS: ALB/GLOB RATIO 1.6 (1.0-2.1); ALT/SGPT 24 U/L (9-52); AST/SGOT 21 U/L (14-36); BLOOD UREA NITROGEN 26 mg/dL (7-17); CALCIUM 9.4 mg/dl (8.6-10.4); GFR NON-AFRICAN AMERICAN > 60; HDL CHOLESTEROL 70 mg/dL (30-70)
[2018-09-30 06:42] LABS: LDL CHOLESTEROL 82 mg/dL (0-129)
[2018-09-30] MEDS: Fluticasone-Vilanterol 100/25mcg Diskus INH SCH (07:45)
[2018-09-30] MEDS: (Novolog) Insulin Aspart, Recombinant 100 u/ml 10 ml vial SC SCH ×4 (07:56→22:20)
--- NOTE | 2018-09-30 09:51 | CP.PCM.PN ---
Subjective - Date & Time of Evaluation Date of Evaluation: 09/30/18 Time of Evaluation: 09:49 - Subjective Subjective: PT ALERT, MORE SOB NOW. +COUGH. Objective - Vital Signs/Intake and Output Vital Signs (last 24 hours): Temp Pulse Resp BP Pulse Ox 98.1 F 78 20 144/85 97 09/30/18 07:54 09/30/18 07:54 09/30/18 07:54 09/30/18 07:54 09/30/18 07:54 Intake and Output: 09/30/18 09/30/18 06:59 18:59 Intake Total 500 Output Total 400 Balance 100 - Medications Medications: Current Medications Albuterol Sulfate (Albuterol 0.083% Inhal Ashleigh (2.5 Mg/3 Ml) Ud) 2.5 mg IH Q4 [facility] Last Admin: 09/29/18 20:13 Dose: 2.5 mg Baclofen (Lioresal) 10 mg PO BID [facility] Last Admin: 09/29/18 17:35 Dose: 10 mg Enoxaparin Sodium (Lovenox) 40 mg SC DAILY [facility] Last Admin: 09/29/18 10:36 Dose: 40 mg Ergocalciferol (Drisdol 50,000 Intl Units Cap) 1 cap PO QWK [facility] Fluticasone/Vilanterol (Breo Ellipta 100-25 Mcg Inh) 1 puff INH RQD [facility] Last Admin: 09/29/18 07:35 Dose: 1 puff Hydrochlorothiazide (Microzide) 12.5 mg PO DAILY [facility] Last Admin: 09/29/18 10:36 Dose: 12.5 mg Insulin Aspart (Novolog) 0 unit SC ACHS [facility]; Protocol Last Admin: 09/30/18 07:56 Dose: 1 units Lisinopril (Zestril) 20 mg PO DAILY [facility] Last Admin: 09/29/18 10:36 Dose: 20 mg Metformin HCl (Glucophage) 500 mg PO DAILY [facility] Last Admin: 09/29/18 10:36 Dose: 500 mg Methylprednisolone (Solu-Medrol) 40 mg IVP Q12H [facility] Last Admin: 09/30/18 05:54 Dose: 40 mg Montelukast Sodium (Singulair) 10 mg PO HS [facility] Last Admin: 09/29/18 21:39 Dose: 10 mg Pantoprazole Sodium (Protonix Ec Tab) 40 mg PO ACB [facility] Last Admin: 09/30/18 06:30 Dose: 40 mg Promethazine HCl/Codeine (Phenergan/Codeine Oral Syrup) 5 ml PO Q6 PRN PRN Reason: Cough and congestion Last Admin: 09/30/18 06:30 Dose: 5 ml Rosuvastatin Calcium (Crestor) 5 mg PO HS [facility] Last Admin: 09/29/18 21:39 Dose: 5 mg - Labs Labs: 09/30/18 06:04 09/30/18 06:04 - Constitutional Appears: No Acute Distress - Head Exam Head Exam: ATRAUMATIC, NORMOCEPHALIC - Eye Exam Eye Exam: EOMI, Normal appearance - ENT Exam ENT Exam: Mucous Membranes Moist - Respiratory Exam Respiratory Exam: Decreased Breath Sounds, Wheezes - Cardiovascular Exam Cardiovascular Exam: RRR, +S1, +S2 - GI/Abdominal Exam GI & Abdominal Exam: Soft. absent: Tenderness - Rectal Exam Rectal Exam: Deferred - Extremities Exam Extremities Exam: absent: Calf Tenderness, Pedal Edema - Back Exam Back Exam: absent: CVA tenderness (L), CVA tenderness (R) - Neurological Exam Neurological Exam: Alert, Awake, CN II-XII Intact, Oriented x3 - Psychiatric Exam Psychiatric exam: Normal Mood - Skin Skin Exam: absent: Rash Assessment and Plan (1) Bronchitis Status: Acute (2) COPD exacerbation Status: Acute (3) Diabetes Status: Acute (4) GERD (gastroesophageal reflux disease) Status: Acute (5) Hyperlipidemia Status: Acute (6) Hypertension Status: Acute - Assessment and Plan (Free Text) Assessment: RESP STATUS STILL WITH SIG BRONCHOSPASM., CONT IV STEROIDS, NEB BD., ADVAIR., SINGULAIR., EMPIRIC AB. CXR REVIEWED, MONITOR O2 SAT. DISCUSSED WITH STAFF AT LENGTH. TIME SPENT 40 MIN.
[2018-09-30] MEDS: Enoxaparin 40 mg Syringe SC SCH (10:13)
--- NOTE | 2018-09-30 21:34 | PN ---
DATE: 09/30/2018 SUBJECTIVE: The patient is seen early this morning complaining of some cough, but improving and also, he is complaining of shortness of breath on exertion. Negative for dizziness, chest pain or palpitation. PHYSICAL EXAMINATION: VITAL SIGNS: The patient has blood pressure of 144/85, pulse 78, respirations 20, temperature 98.1. NECK: Supple. LUNGS: Inspiratory and expiratory wheezing. HEART: Regular rate and rhythm. ABDOMEN: Soft, obese, nontender. No palpable mass. EXTREMITIES: There is no edema. LABORATORY DATA: The patient had some tests done. WBC is 14.7. The patient is on steroids. Hemoglobin is 12.4, hematocrit 38.4 and platelet is 422. Chemistry, sodium 136, potassium 4.5, chloride 98, BUN 26, creatinine 0.6, and glucose is 159, calcium is 9.4, phosphorus 3.2, magnesium 2.1, AST 21, ALT 24, alkaline phosphatase is 55. Albumin is 4, bilirubin 2.5. Cholesterol 157, HDL 70, LDL 82. PLAN: I am going to continue the patient with steroid, Solu-Medrol, and the Proventil nebulizer. Continue the current medication. Pulmonary is also appreciated. The progress note of Dr. Casey, Pulmonary, is also appreciated. Case was discussed with Zita Simmons, the nurse practitioner. Pratik Block MD
[2018-10-01] MEDS: Albuterol 0.083% Inhal Sol (2.5 mg/3 mL) UD IH SCH ×3 (00:03→07:45)
[2018-10-01] MEDS: Promethazine/Cod 6.25mg-10mg/5ml Syr UD PO PRN ×2 (00:20→05:34)
[2018-10-01] MEDS: MethylPREDNISolone 40 mg Vial IVP SCH ×2 (05:34→17:38)
[2018-10-01] MEDS: Pantoprazole 40 mg EC Tab PO SCH (06:39)
[2018-10-01] MEDS: Fluticasone-Vilanterol 100/25mcg Diskus INH SCH (07:45)
[2018-10-01] MEDS: (Novolog) Insulin Aspart, Recombinant 100 u/ml 10 ml vial SC SCH ×4 (08:12→21:33)
--- NOTE | 2018-10-01 09:19 | CP.PCM.PN ---
Subjective - Date & Time of Evaluation Date of Evaluation: 10/01/18 Time of Evaluation: 09:16 - Subjective Subjective: PT ALERT, +COUGH. NO SPUTUM; OOB. STILL SOB +WHEEZE. ROS; OTHERWISE NEG. Objective - Vital Signs/Intake and Output Vital Signs (last 24 hours): Temp Pulse Resp BP Pulse Ox 98.0 F 82 20 112/76 97 10/01/18 08:12 10/01/18 08:12 10/01/18 08:12 10/01/18 08:12 10/01/18 08:12 Intake and Output: 10/01/18 10/01/18 06:59 18:59 Intake Total 750 Balance 750 - Medications Medications: Current Medications Albuterol Sulfate (Albuterol 0.083% Inhal Ashleigh (2.5 Mg/3 Ml) Ud) 2.5 mg IH Q4 [facility] Last Admin: 10/01/18 04:14 Dose: Not Given Azithromycin (Zithromax) 500 mg PO DAILY [facility]; Protocol Last Admin: 09/30/18 18:05 Dose: 500 mg Baclofen (Lioresal) 10 mg PO BID [facility] Last Admin: 09/30/18 17:25 Dose: 10 mg Enoxaparin Sodium (Lovenox) 40 mg SC DAILY [facility] Last Admin: 09/30/18 10:13 Dose: 40 mg Ergocalciferol (Drisdol 50,000 Intl Units Cap) 1 cap PO QWK [facility] Fluticasone/Vilanterol (Breo Ellipta 100-25 Mcg Inh) 1 puff INH RQD [facility] Last Admin: 09/30/18 07:45 Dose: 1 puff Hydrochlorothiazide (Microzide) 12.5 mg PO DAILY [facility] Last Admin: 09/30/18 10:12 Dose: 12.5 mg Insulin Aspart (Novolog) 0 unit SC ACHS [facility]; Protocol Last Admin: 10/01/18 08:12 Dose: 1 units Lisinopril (Zestril) 20 mg PO DAILY [facility] Last Admin: 09/30/18 10:12 Dose: 20 mg Metformin HCl (Glucophage) 500 mg PO DAILY [facility] Last Admin: 09/30/18 10:12 Dose: 500 mg Methylprednisolone (Solu-Medrol) 40 mg IVP Q12H [facility] Last Admin: 10/01/18 05:34 Dose: 40 mg Montelukast Sodium (Singulair) 10 mg PO HS [facility] Last Admin: 09/30/18 22:20 Dose: 10 mg Pantoprazole Sodium (Protonix Ec Tab) 40 mg PO ACB [facility] Last Admin: 10/01/18 06:39 Dose: 40 mg Promethazine HCl/Codeine (Phenergan/Codeine Oral Syrup) 5 ml PO Q6 PRN PRN Reason: Cough and congestion Last Admin: 10/01/18 05:34 Dose: 5 ml Rosuvastatin Calcium (Crestor) 5 mg PO [facility] Last Admin: 09/30/18 22:19 Dose: 5 mg - Labs Labs: 09/30/18 06:04 09/30/18 06:04 - Constitutional Appears: No Acute Distress - Head Exam Head Exam: ATRAUMATIC, NORMOCEPHALIC - Eye Exam Eye Exam: EOMI, Normal appearance - ENT Exam ENT Exam: Mucous Membranes Moist - Neck Exam Neck Exam: Normal Inspection - Respiratory Exam Respiratory Exam: Decreased Breath Sounds, Wheezes - Cardiovascular Exam Cardiovascular Exam: RRR, +S1, +S2 - GI/Abdominal Exam GI & Abdominal Exam: Soft. absent: Tenderness - Rectal Exam Rectal Exam: Deferred - Extremities Exam Extremities Exam: absent: Calf Tenderness, Pedal Edema - Back Exam Back Exam: absent: CVA tenderness (L), CVA tenderness (R), rash noted - Neurological Exam Neurological Exam: Alert, Awake, CN II-XII Intact, Normal Gait, Oriented x3 - Psychiatric Exam Psychiatric exam: Normal Mood - Skin Skin Exam: absent: Rash Assessment and Plan (1) Bronchitis Status: Acute (2) COPD exacerbation Status: Acute (3) Diabetes Status: Acute (4) GERD (gastroesophageal reflux disease) Status: Acute (5) Hyperlipidemia Status: Acute (6) Hypertension Status: Acute - Assessment and Plan (Free Text) Assessment: RESP STATUS NO SIG CHANGE., STILL WITH SIG BRONCHOSPASM. ON IV STEROIDS, NEB BD., ADD MUCOMYST. CONT ADVAIR. CONT SINGULAIR. AFEBRILE ON AB. CXR REVIEWED. DISCUSSED WITH STAFF AT LENGTH. TIME SPENT 40 MIN.
[2018-10-01] MEDS: Acetylcysteine 20% Inhal Soln (4ml) INH SCH ×3 (09:46→19:30)
[2018-10-01] MEDS ORDERED: Albuterol-Ipratrop 3 mg / 0.5 (3 ml) UD INH STA (09:46)
[2018-10-01] MEDS: Enoxaparin 40 mg Syringe SC SCH (09:55)
[2018-10-01] MEDS: Albuterol-Ipratrop 3 mg / 0.5 (3 ml) UD INH SCH ×2 (13:45→19:30)
--- NOTE | 2018-10-02 00:19 | PN ---
DATE: 10/01/2018 SUBJECTIVE: Today, the patient is alert and awake, but is still complaining of shortness of breath with minor effort. Has congestive cough with some whitish sputum; and has no abdominal pain, no chest pain, no constipation. PHYSICAL EXAMINATION: VITAL SIGNS: Blood pressure 112/76, pulse 82, respirations 20, temperature 98 degree Fahrenheit. NECK: Supple. LUNGS: Inspiratory/expiratory wheezing and coarse. HEART: Regular rate and rhythm. ABDOMEN: Soft, obese. Mild epigastric tenderness. EXTREMITIES: There is no edema. LABORATORY DATA: The patient's blood work has shown WBC of 14.7, hemoglobin 12.4; hematocrit 38.4; and platelets were 422 that was from yesterday. So the plan is that we have added acetylcysteine as per Pulmonary, Dr. Casey, and also Endy. So we will continue the today and continue the rest of the treatments. Pratik Block MD
[2018-10-02] MEDS: Albuterol-Ipratrop 3 mg / 0.5 (3 ml) UD INH SCH ×4 (01:32→21:11)
[2018-10-02] MEDS: Acetylcysteine 20% Inhal Soln (4ml) INH SCH ×4 (01:32→21:11)
[2018-10-02] MEDS: MethylPREDNISolone 40 mg Vial IVP SCH ×2 (05:20→17:21)
[2018-10-02] MEDS: Pantoprazole 40 mg EC Tab PO SCH (06:40)
[2018-10-02] MEDS: Fluticasone-Vilanterol 100/25mcg Diskus INH SCH (07:45)
[2018-10-02] MEDS: (Novolog) Insulin Aspart, Recombinant 100 u/ml 10 ml vial SC SCH ×5 (08:19→21:39)
[2018-10-02 08:46] LABS: BASO % 0.2 % (0.0-2.0); HEMOGLOBIN 13.6 g/dL (11.0-16.0); LYMPH # 1.5 K/uL (1.0-4.3); LYMPH % 10.8 % (20.0-40.0); MEAN CELL VOLUME 91.9 fL (81.0-99.0); MEAN CORPUSCULAR HEMOGLOBIN 28.8 pg (27.0-31.0); MEAN CORPUSCULAR HGB CONC 31.3 g/dL (33.0-37.0); MEAN PLATELET VOLUME 8.2 fL (7.2-11.7); MONO # 0.5 K/uL (0.0-0.8); MONO % 3.9 % (0.0-10.0); NEUT # 12.1 K/uL (1.8-7.0); NEUT % 85.1 % (50.0-75.0); RBC 4.73 Mil/uL (3.80-5.20); WHITE BLOOD COUNT 14.2 K/uL (4.8-10.8)
[2018-10-02 09:09] LABS: ALB/GLOB RATIO 1.8 (1.0-2.1); ALBUMIN 4.6 g/dL (3.5-5.0); ALT/SGPT 21 U/L (9-52); AST/SGOT 28 U/L (14-36); BLOOD UREA NITROGEN 26 mg/dL (7-17); CALCIUM 9.4 mg/dl (8.6-10.4); GFR NON-AFRICAN AMERICAN > 60
[2018-10-02] MEDS: Promethazine/Cod 6.25mg-10mg/5ml Syr UD PO PRN (10:08)
[2018-10-02] MEDS: Enoxaparin 40 mg Syringe SC SCH (10:08)
--- NOTE | 2018-10-02 13:10 | CP.PCM.PN ---
Subjective - Date & Time of Evaluation Date of Evaluation: 10/02/18 Time of Evaluation: 13:07 - Subjective Subjective: PT ALERT, FEELS BETTER., LESS SOB., COUGH +SPUTUM. ROS ; OTHERWISE NEG. Objective - Vital Signs/Intake and Output Vital Signs (last 24 hours): Temp Pulse Resp BP Pulse Ox 98.0 F 91 H 20 123/89 97 10/02/18 07:00 10/02/18 07:00 10/02/18 07:00 10/02/18 07:00 10/02/18 07:00 Intake and Output: 10/02/18 10/02/18 06:59 18:59 Intake Total 715 Balance 715 - Medications Medications: Current Medications Acetylcysteine (Acetylcysteine 20%) 4 ml INH RQ6 [facility] Last Admin: 10/02/18 07:45 Dose: 4 ml Albuterol/Ipratropium (Duoneb 3 Mg/0.5 Mg (3 Ml) Ud) 3 ml INH RQ6 [facility] Last Admin: 10/02/18 07:45 Dose: 3 ml Azithromycin (Zithromax) 500 mg PO DAILY [facility]; Protocol Last Admin: 10/02/18 10:11 Dose: 500 mg Baclofen (Lioresal) 10 mg PO BID [facility] Last Admin: 10/02/18 10:11 Dose: 10 mg Enoxaparin Sodium (Lovenox) 40 mg SC DAILY [facility] Last Admin: 10/02/18 10:08 Dose: 40 mg Ergocalciferol (Drisdol 50,000 Intl Units Cap) 1 cap PO QWK [facility] Fluticasone/Vilanterol (Breo Ellipta 100-25 Mcg Inh) 1 puff INH RQD [facility] Last Admin: 10/02/18 07:45 Dose: 1 puff Hydrochlorothiazide (Microzide) 12.5 mg PO DAILY [facility] Last Admin: 10/02/18 10:08 Dose: 12.5 mg Insulin Aspart (Novolog) 0 unit SC [facility]; Protocol Last Admin: 10/02/18 12:22 Dose: 3 units Lisinopril (Zestril) 20 mg PO DAILY [facility] Last Admin: 10/02/18 10:08 Dose: 20 mg Metformin HCl (Glucophage) 500 mg PO DAILY [facility] Last Admin: 10/02/18 10:08 Dose: 500 mg Methylprednisolone (Solu-Medrol) 40 mg IVP Q12H [facility] Last Admin: 10/02/18 05:20 Dose: 40 mg Montelukast Sodium (Singulair) 10 mg PO [facility] Last Admin: 10/01/18 21:34 Dose: 10 mg Pantoprazole Sodium (Protonix Ec Tab) 40 mg PO ACB [facility] Last Admin: 10/02/18 06:40 Dose: 40 mg Promethazine HCl/Codeine (Phenergan/Codeine Oral Syrup) 5 ml PO Q6 PRN PRN Reason: Cough and congestion Last Admin: 10/02/18 10:08 Dose: 5 ml Rosuvastatin Calcium (Crestor) 5 mg PO [facility] Last Admin: 10/01/18 21:33 Dose: 5 mg - Labs Labs: 10/02/18 08:39 10/02/18 08:39 - Constitutional Appears: No Acute Distress - Head Exam Head Exam: ATRAUMATIC, NORMOCEPHALIC - Eye Exam Eye Exam: EOMI, Normal appearance - ENT Exam ENT Exam: Mucous Membranes Moist - Neck Exam Neck Exam: Normal Inspection - Respiratory Exam Respiratory Exam: Wheezes Additional comments: BETTER AIR MOVEMENT., - Cardiovascular Exam Cardiovascular Exam: RRR, +S1, +S2 - GI/Abdominal Exam GI & Abdominal Exam: Soft. absent: Tenderness - Rectal Exam Rectal Exam: Deferred - Extremities Exam Extremities Exam: absent: Normal Inspection, Pedal Edema - Back Exam Back Exam: absent: CVA tenderness (L), CVA tenderness (R) - Neurological Exam Neurological Exam: Alert, Awake, CN II-XII Intact, Normal Gait, Oriented x3 - Psychiatric Exam Psychiatric exam: Normal Mood - Skin Skin Exam: absent: Rash Assessment and Plan (1) Bronchitis Status: Acute (2) COPD exacerbation Status: Acute (3) Diabetes Status: Acute (4) GERD (gastroesophageal reflux disease) Status: Acute (5) Hyperlipidemia Status: Acute (6) Hypertension Status: Acute - Assessment and Plan (Free Text) Assessment: RESP STATUS IMPROVING., CONT NEB BD WITH MUCOMYST, ON STEROID TAPER. O2 SAT BETTER, 94% WITH AMBULATION PER PHYSICAL THERAPIST. CONT BREO. AFEBRILE ON AB. DISCUSSED WITH STAFF AND PT AT LENGTH. TIME SPENT 40 MIN.
[2018-10-03] MEDS: Acetylcysteine 20% Inhal Soln (4ml) INH SCH ×3 (01:10→13:49)
[2018-10-03] MEDS: Albuterol-Ipratrop 3 mg / 0.5 (3 ml) UD INH SCH ×3 (01:10→13:49)
--- NOTE | 2018-10-03 01:11 | PN ---
DATE: 10/02/2018 SUBJECTIVE: Today, the patient is alert and awake, but is still complaining of shortness of breath and decrease of cough, and also, the patient is still having shortness of breath with minor effort. PHYSICAL EXAMINATION: VITAL SIGNS: The patient has a blood pressure of 123/89 early this morning, pulse 91, respirations 20, temperature 98 degrees Fahrenheit. NECK: Supple. LUNGS: Inspiratory and expiratory wheezing. HEART: Regular rate and rhythm with no murmur noted. ABDOMEN: Soft and nontender. No palpable mass. EXTREMITIES: There is no edema. LABORATORY DATA: The patient's tests showed WBC 14.2, hemoglobin 13.6, hematocrit 43.4, and platelets 430, and chemistry showed sodium 136, potassium 4.4, chloride 98, bicarb 31, BUN 26, creatinine 0.7, and glucose of 189. PLAN: Progress note from Dr. Casey Pulmonary is appreciated, and apparently, we are going to continue the steroid and also the Mucomyst for today, medication. Pratik Block MD
[2018-10-03] MEDS: MethylPREDNISolone 40 mg Vial IVP SCH (05:30)
[2018-10-03] MEDS: Pantoprazole 40 mg EC Tab PO SCH (06:45)
--- NOTE | 2018-10-03 06:53 | CP.PCM.PN ---
Subjective - Date & Time of Evaluation Date of Evaluation: 10/03/18 Time of Evaluation: 06:50 - Subjective Subjective: PT OOB, FEELS BETTER. LESS SOB., LESS COUGH. SLEPT WELL. ROS; OTHERWISE NEG. Objective - Vital Signs/Intake and Output Vital Signs (last 24 hours): Temp Pulse Resp BP Pulse Ox 98.2 F 71 20 120/61 97 10/03/18 00:00 10/03/18 00:00 10/03/18 00:00 10/03/18 00:00 10/03/18 00:00 Intake and Output: 10/02/18 10/03/18 18:59 06:59 Intake Total 915 Balance 915 - Medications Medications: Current Medications Acetylcysteine (Acetylcysteine 20%) 4 ml INH RQ6 [facility] Last Admin: 10/03/18 01:10 Dose: Not Given Albuterol/Ipratropium (Duoneb 3 Mg/0.5 Mg (3 Ml) Ud) 3 ml INH RQ6 [facility] Last Admin: 10/03/18 01:10 Dose: 3 ml Azithromycin (Zithromax) 500 mg PO DAILY [facility]; Protocol Last Admin: 10/02/18 10:11 Dose: 500 mg Baclofen (Lioresal) 10 mg PO BID [facility] Last Admin: 10/02/18 21:31 Dose: 10 mg Enoxaparin Sodium (Lovenox) 40 mg SC DAILY [facility] Last Admin: 10/02/18 10:08 Dose: 40 mg Ergocalciferol (Drisdol 50,000 Intl Units Cap) 1 cap PO QWK [facility] Fluticasone/Vilanterol (Breo Ellipta 100-25 Mcg Inh) 1 puff INH RQD [facility] Last Admin: 10/02/18 07:45 Dose: 1 puff Hydrochlorothiazide (Microzide) 12.5 mg PO DAILY [facility] Last Admin: 10/02/18 10:08 Dose: 12.5 mg Insulin Aspart (Novolog) 0 unit SC [facility]; Protocol Last Admin: 10/02/18 21:39 Dose: 2 units Lisinopril (Zestril) 20 mg PO DAILY [facility] Last Admin: 10/02/18 10:08 Dose: 20 mg Metformin HCl (Glucophage) 500 mg PO DAILY [facility] Last Admin: 10/02/18 10:08 Dose: 500 mg Methylprednisolone (Solu-Medrol) 40 mg IVP Q12H [facility] Last Admin: 10/03/18 05:30 Dose: 40 mg Montelukast Sodium (Singulair) 10 mg PO [facility] Last Admin: 10/02/18 21:29 Dose: 10 mg Pantoprazole Sodium (Protonix Ec Tab) 40 mg PO ACB [facility] Last Admin: 10/03/18 06:45 Dose: 40 mg Promethazine HCl/Codeine (Phenergan/Codeine Oral Syrup) 5 ml PO Q6 PRN PRN Reason: Cough and congestion Last Admin: 10/02/18 10:08 Dose: 5 ml Rosuvastatin Calcium (Crestor) 5 mg PO [facility] Last Admin: 10/02/18 21:29 Dose: 5 mg - Labs Labs: 10/02/18 08:39 10/02/18 08:39 - Constitutional Appears: Non-toxic, No Acute Distress - Head Exam Head Exam: ATRAUMATIC, NORMOCEPHALIC - Eye Exam Eye Exam: EOMI, Normal appearance - ENT Exam ENT Exam: Mucous Membranes Moist - Neck Exam Neck Exam: Normal Inspection - Respiratory Exam Respiratory Exam: absent: Wheezes - Cardiovascular Exam Cardiovascular Exam: RRR, +S1, +S2 - GI/Abdominal Exam GI & Abdominal Exam: Soft. absent: Tenderness - Rectal Exam Rectal Exam: Deferred - Extremities Exam Extremities Exam: absent: Calf Tenderness, Pedal Edema - Back Exam Back Exam: absent: CVA tenderness (L), CVA tenderness (R) - Neurological Exam Neurological Exam: Alert, Awake, CN II-XII Intact, Normal Gait, Oriented x3 - Psychiatric Exam Psychiatric exam: Normal Mood - Skin Skin Exam: absent: Rash Assessment and Plan (1) Bronchitis Status: Acute (2) COPD exacerbation Status: Acute (3) Diabetes Status: Acute (4) GERD (gastroesophageal reflux disease) Status: Acute (5) Hyperlipidemia Status: Acute (6) Hypertension Status: Acute - Assessment and Plan (Free Text) Assessment: RESP STATUS IMPROVING, BRONCHOSPASM RESOLVING., ON STEROID TAPER, CHANGE PO PRED. CONT BREO AND NEB BD., ADEQ OXYGENATION ON ROOM AIR. CXR REVIEWED. PFT;S OUTPT. DISCUSSED WITH STAFF AT LENGTH.
[2018-10-03] MEDS: Fluticasone-Vilanterol 100/25mcg Diskus INH SCH (08:18)
[2018-10-03] MEDS: (Novolog) Insulin Aspart, Recombinant 100 u/ml 10 ml vial SC SCH ×2 (08:30→12:36)
[2018-10-03] MEDS: Enoxaparin 40 mg Syringe SC SCH (10:25)
[2018-10-03 16:22] VITALS: BP 133/83; PULSE 78; TEMP 97.9; O2SAT 96
--- NOTE | 2018-10-03 16:28 | CP.PCM.PN ---
Subjective - Date & Time of Evaluation Date of Evaluation: 10/03/18 Time of Evaluation: 16:28 - Subjective Subjective: PATIENT SEEN AND EXAMINED AT THE BEDSIDE Objective - Vital Signs/Intake and Output Vital Signs (last 24 hours): Temp Pulse Resp BP Pulse Ox 97.9 F 78 20 133/83 96 10/03/18 16:00 10/03/18 16:00 10/03/18 16:00 10/03/18 16:00 10/03/18 16:00 Intake and Output: 10/03/18 10/03/18 06:59 18:59 Intake Total 915 Balance 915 - Medications Medications: Current Medications Acetylcysteine (Acetylcysteine 20%) 4 ml INH RQ6 [facility] Last Admin: 10/03/18 13:49 Dose: 4 ml Albuterol/Ipratropium (Duoneb 3 Mg/0.5 Mg (3 Ml) Ud) 3 ml INH RQ6 [facility] Last Admin: 10/03/18 13:49 Dose: 3 ml Azithromycin (Zithromax) 500 mg PO DAILY [facility]; Protocol Last Admin: 10/03/18 10:24 Dose: 500 mg Baclofen (Lioresal) 10 mg PO BID [facility] Last Admin: 10/03/18 10:24 Dose: 10 mg Enoxaparin Sodium (Lovenox) 40 mg SC DAILY [facility] Last Admin: 10/03/18 10:25 Dose: 40 mg Ergocalciferol (Drisdol 50,000 Intl Units Cap) 1 cap PO QWK [facility] Fluticasone/Vilanterol (Breo Ellipta 100-25 Mcg Inh) 1 puff INH RQD [facility] Last Admin: 10/03/18 08:18 Dose: 1 puff Hydrochlorothiazide (Microzide) 12.5 mg PO DAILY [facility] Last Admin: 10/03/18 10:24 Dose: 12.5 mg Insulin Aspart (Novolog) 0 unit SC ACHS [facility]; Protocol Last Admin: 10/03/18 12:36 Dose: 2 units Lisinopril (Zestril) 20 mg PO DAILY [facility] Last Admin: 10/03/18 10:24 Dose: 20 mg Metformin HCl (Glucophage) 500 mg PO DAILY [facility] Last Admin: 10/03/18 10:24 Dose: 500 mg Methylprednisolone (Solu-Medrol) 40 mg IVP Q12H [facility] Last Admin: 10/03/18 05:30 Dose: 40 mg Montelukast Sodium (Singulair) 10 mg PO HS [facility] Last Admin: 10/02/18 21:29 Dose: 10 mg Pantoprazole Sodium (Protonix Ec Tab) 40 mg PO ACB [facility] Last Admin: 10/03/18 06:45 Dose: 40 mg Promethazine HCl/Codeine (Phenergan/Codeine Oral Syrup) 5 ml PO Q6 PRN PRN Reason: Cough and congestion Last Admin: 10/02/18 10:08 Dose: 5 ml Rosuvastatin Calcium (Crestor) 5 mg PO HS [facility] Last Admin: 10/02/18 21:29 Dose: 5 mg - Labs Labs: 10/02/18 08:39 10/02/18 08:39 Assessment and Plan - Assessment and Plan (Free Text) Assessment: FOLLOW UP WITH DR ARDON IN HIS OFFICE ------CALL FOR APPOINTMENT FOLLOW UP WITH [facility] IN HIS OFFICE -----CALL FOR APPOINTMENT CONTINUE HOME MEDICATION NEW PRESCRIPTION GIVEN BREO 1 PUFF DAILY ALBUTEROL TX REFILL AZITHROMYCN 500 MG PO DAILY FOR 3 DAYS PREDNISONE TAPER INSTRCTED 4 TABS FOR 3 DAYS THEN 3 TABS FOR 3 DAYS THEN 2 TABS FOR 3 DAYS THEN 1 TAB FOR 3 DAYS STOP TAKING SYMBICORT ACTIVITY TOLERATED CALL DR ARDON OR GO TO THE ENERGENCY ROOM IF SYMPTOM RETURN OR WORSENING
--- NOTE | 2018-10-04 07:19 | PN ---
DATE: 10/03/2018 SUBJECTIVE: Today, the patient is seen and has no shortness of breath, no dizziness, and no chest pain. PHYSICAL EXAMINATION: VITAL SIGNS: The patient has a blood pressure of 132/83, pulse 78, respirations 20, temperature 97.9. NECK: Supple. LUNGS: Not clear. HEART: Regular rate and rhythm. ABDOMEN: Soft and nontender. No palpable mass. EXTREMITIES: There is no edema and the patient is obese. ASSESSMENT AND PLAN: Dr. Casey in Pulmonary, his note is appreciated. The patient will be discharged home today. Case was discussed with Keven Barrett, the nurse practitioner. Pratik Block MD
[2018-10-04] MEDS ORDERED: Ergocalciferol 50,000 Intl Units Cap PO SCH (10:00)
--- NOTE | 2018-10-04 19:00 | DS ---
HOSPITAL COURSE: This patient is a 63-year-old female with a history of asthma, COPD and hypertension. The patient came to the hospital because of complaints of shortness of breath that was worsening. The patient in the emergency room received nebulizer treatment and also steroids the patient has been seen for followup and to continue the management. The patient has consulted with Dr. Casey of Pulmonary, and the patient was started on Solu-Medrol 40 mg every 8 hours, Proventil and Singulair, but no major improvement. Acetylcysteine was added to the treatment Breo. The patient started improving. Now the patient's lungs are clear. At this time, the patient is cleared by Dr. Casey to be discharged, so we discharge the patient home. The patient will come to follow in my office within one week. Pratik Block MD
== END 2018-10-03 19:30 | disposition home or self-care (01) | DRG 191 ==
LOC: C.ER 13:36 → C.9E 17:21 → C.3T 17:39
PROVIDERS: ADMIT Specialist; ATTEND Specialist
DX: J44.1 Chronic obstructive pulmonary disease with (acute) exacerbation (principal); Z68.41 Body mass index [BMI] 40.0-44.9, adult; E78.5 Hyperlipidemia, unspecified; K21.9 Gastro-esophageal reflux disease without esophagitis; E11.9 Type 2 diabetes mellitus without complications; I10 Essential (primary) hypertension; Z87.891 Personal history of nicotine dependence; F41.9 Anxiety disorder, unspecified; E78.00 Pure hypercholesterolemia, unspecified; E66.9 Obesity, unspecified; J44.0 Chronic obstructive pulmonary disease with (acute) lower respiratory infection; J20.9 Acute bronchitis, unspecified; Z82.49 Family history of ischemic heart disease and other diseases of the circulatory system

== ENCOUNTER 2018-11-02 08:28 | Emergency (ER) | payer MEDICARE ==
[2018-11-02 08:28] VITALS: BMI 36.6
[2018-11-02 08:41] VITALS: O2SAT 97
[2018-11-02 09:52] LABS: SQUAMOUS EPITHIAL 5 /hpf (0-5); URINE BILIRUBIN NEGATIVE (NEGATIVE); URINE BLOOD NEGATIVE (NEGATIVE); URINE CLARITY Hazy (Clear); URINE COLOR Yellow (YELLOW); URINE GLUCOSE (UA) NORMAL (Normal); URINE LEUKOCYTE ESTERASE NEG Leu/uL (Negative); URINE PROTEIN NEGATIVE (NEGATIVE); URINE UROBILINOGEN NORMAL mg/dL (0.2-1.0)
--- NOTE | 2018-11-02 10:54 | C.PDOC ---
History Of Present Illness 63 y/o female presents to the ED complaining of intermittent back pain for the past 2 weeks. Pain was initially localized to the right flank and radiated around to the front. She reports pain increases with standing or any movement. Patient has been taking her usual pain medications at home, which she is prescribed for chronic pain, with good relief. States she wanted to make sure there is no kidney infection. She has no prior hx of kidney stones. Patient denies any dysuria or hematuria. She admits to slightly more frequent urination. Now pain is also on the left side, and is described as more consistent with her chronic sciatica pain. Patient otherwise denies fevers, chills, nausea, vomiting, abdominal pain, weakness, numbness, or headache. Time Seen by Provider: 11/02/18 08:53 Chief Complaint (Nursing): Female Genitourinary History Per: Patient History/Exam Limitations: no limitations Onset/Duration Of Symptoms: Intermittent Episodes Current Symptoms Are (Timing): Still Present Past Medical History Reviewed: Historical Data, Nursing Documentation, Vital Signs Vital Signs: Last Vital Signs Temp 97.7 F 11/02/18 08:37 Pulse 89 11/02/18 08:37 Resp 18 11/02/18 08:37 BP 151/101 H 11/02/18 08:37 Pulse Ox 97 11/02/18 08:37 - Medical History PMH: Anxiety, Arthritis, Asthma, Bronchitis, COPD, Diabetes (Doesn't know the name of medications), Fractures (toe), Gastritis, HTN, Hypercholesterolemia Denies: Chronic Kidney Disease Surgical History: Back Surgery, Endoscopy - [facility] Procedures NEBULIZER THERAPY (01/08/04) Family History: States: Unknown Family Hx - Social History Hx Tobacco Use: Yes Hx Alcohol Use: No Hx Substance Use: No - Immunization History Hx Tetanus Toxoid Vaccination: No Hx Influenza Vaccination: Yes Hx Pneumococcal Vaccination: Yes Review Of Systems Except As Marked, All Systems Reviewed And Found Negative. Constitutional: Negative for: Fever, Chills Gastrointestinal: Positive for: Abdominal Pain. Negative for: Nausea, Vomiting Genitourinary: Positive for: Frequency. Negative for: Dysuria, Hematuria Musculoskeletal: Positive for: Back Pain (right flank, left flank) Neurological: Negative for: Weakness, Numbness, Headache, Dizziness Physical Exam - Physical Exam Appears: Non-toxic, No Acute Distress, Other (Obese female) Skin: Warm, Dry, No Rash Head: Atraumatic, Normacephalic Eye(s): bilateral: Normal Inspection, PERRL, EOMI Oral Mucosa: Moist Neck: Normal ROM Chest: Symmetrical Cardiovascular: Rhythm Regular, No Murmur Respiratory: Normal Breath Sounds, No Rales, No Rhonchi, No Wheezing Gastrointestinal/Abdominal: Soft, No Tenderness, No Distention, No Guarding Back: No CVA Tenderness, No Vertebral Tenderness Extremity: Bilateral: Atraumatic, Normal ROM Neurological/Psych: Oriented x3, Normal Speech ED Course And Treatment - Laboratory Results Lab Results: Urine Color Yellow (YELLOW) 11/02/18 09:30 Urine Clarity Hazy (Clear) 11/02/18 09:30 Urine pH 6.0 (5.0-8.0) 11/02/18 09:30 Ur Specific [place] 1.019 (1.003-1.030) 11/02/18 09:30 Urine Protein Negative mg/dL (NEGATIVE) 11/02/18 09:30 Urine Glucose (UA) Normal mg/dL (Normal) 11/02/18 09:30 Urine Ketones Negative mg/dL (NEGATIVE) 11/02/18 09:30 Urine Blood Negative (NEGATIVE) 11/02/18 09:30 Urine Nitrate Negative (NEGATIVE) 11/02/18 09:30 Urine Bilirubin Negative (NEGATIVE) 11/02/18 09:30 Urine Urobilinogen Normal mg/dL (0.2-1.0) 11/02/18 09:30 Ur Leukocyte Esterase Neg Mateo/uL (Negative) 11/02/18 09:30 Urine WBC (Auto) 1 /hpf (0-5) 11/02/18 09:30 Urine RBC (Auto) 3 /hpf (0-3) 11/02/18 09:30 Ur Squamous Epith Cells 5 /hpf (0-5) 11/02/18 09:30 O2 Sat by Pulse Oximetry: 97 (RA) Pulse Ox Interpretation: Normal Medical Decision Making Medical Decision Making: Impression: Chronic back pain, r/o UTI Initial Plan: - Motrin and Tylenol given - Pending UA - Reassess Progress: UA reviewed, and is unremarkable. Patient will be discharged home, advised to take her pain medications as written. Disposition Counseled Patient/Family Regarding: Diagnosis, Need For Followup - Disposition Disposition: HOME/ ROUTINE Disposition Time: 10:52 Condition: STABLE Instructions: Low Back Pain (DC), Back Exercises Forms: [employer] (Macedonian) - POA Present On Arrival: None - Clinical Impression Clinical Impression: Chronic back pain - Scribe Statement The provider has reviewed the documentation as recorded by the Marilu Andrews Provider Attestation: All medical record entries made by the Marilu were at my direction and personally dictated by me. I have reviewed the chart and agree that the record accurately reflects my personal performance of the history, physical exam, medical decision making, and the department course for this patient. I have also personally directed, reviewed, and agree with the discharge instructions and disposition.
[2018-11-02 10:59] VITALS: BP 147/97; PULSE 79; RESP 17; TEMP 98.1
== END 2018-11-02 11:09 | disposition home or self-care (01) ==
LOC: C.ER 08:28
DX: G89.29 Other chronic pain (principal); M54.9 Dorsalgia, unspecified

== ENCOUNTER 2018-11-12 08:58 | Inpatient (IN) | payer MEDICARE ==
[2018-11-12 08:58] VITALS: BMI 36.6
[2018-11-12] MEDS ORDERED: Albuterol-Ipratrop 3 mg / 0.5 (3 ml) UD ONE (09:23)
[2018-11-12] MEDS ORDERED: Albuterol 0.083% Inhal Sol (2.5 mg/3 mL) UD IH STA ×3 (09:39→13:20)
[2018-11-12] MEDS ORDERED: Albuterol-Ipratrop 3 mg / 0.5 (3 ml) UD INH STA (09:41)
[2018-11-12] MEDS ORDERED: Albuterol 0.083% Inhal Sol (2.5 mg/3 mL) UD ONE ×3 (09:49→13:41)
[2018-11-12 10:03] LABS: BASO # 0.1 K/uL (0.0-0.2); BASO % 0.9 % (0.0-2.0); EOS # 0.5 K/uL (0.0-0.7); EOS % 8.5 % (0.0-4.0); HEMOGLOBIN 12.5 g/dL (11.0-16.0); LYMPH # 1.9 K/uL (1.0-4.3); LYMPH % 28.6 % (20.0-40.0); MEAN CORPUSCULAR HEMOGLOBIN 28.9 pg (27.0-31.0); MEAN CORPUSCULAR HGB CONC 32.3 g/dL (33.0-37.0); MEAN PLATELET VOLUME 8.1 fL (7.2-11.7); MONO # 0.5 K/uL (0.0-0.8); MONO % 8.5 % (0.0-10.0); NEUT # 3.5 K/uL (1.8-7.0); NEUT % 53.5 % (50.0-75.0); RBC 4.32 Mil/uL (3.80-5.20); RED CELL DISTRIBUTION WIDTH 14.5 % (11.5-14.5)
[2018-11-12 10:04] LABS: MEAN CELL VOLUME 89.7 fL (81.0-99.0); WHITE BLOOD COUNT 6.5 K/uL (4.8-10.8)
[2018-11-12 10:17] LABS: ALB/GLOB RATIO 1.5 (1.0-2.1); ALBUMIN 4.3 g/dL (3.5-5.0); ALT/SGPT 16 U/L (9-52); AST/SGOT 30 U/L (14-36); BLOOD UREA NITROGEN 23 mg/dL (7-17); CALCIUM 9.5 mg/dl (8.6-10.4); GFR NON-AFRICAN AMERICAN > 60
--- NOTE | 2018-11-12 10:31 | RAD ---
HISTORY: SOB COMPARISON: Chest x-ray performed 09/27/18 TECHNIQUE: Chest, one view. FINDINGS: LUNGS: No focal consolidation. Please note that chest x-ray has limited sensitivity for the detection of pulmonary masses. PLEURA: No significant pleural effusion identified. No definite pneumothorax . CARDIOVASCULAR: Heart size appears within normal limits. No significant atherosclerotic calcification present. OSSEOUS STRUCTURES: Degenerative changes of the spine. Acromioclavicular arthropathy. VISUALIZED UPPER ABDOMEN: Unremarkable. OTHER FINDINGS: None. IMPRESSION: No focal consolidation.
--- NOTE | 2018-11-12 11:07 | C.PDOC ---
History Of Present Illness 63 y/o female,w/PMhx of asthma, presents to the ER complaining of shortness of breath and wheezing which has been present for the past several days. Patient states that she had flu like symptoms for about 1 week. Eventually, she deve loped shortness of breath and wheezing. Denies having fever,chills, CP, nausea, vomiting, abdominal pain, diarrhea, and dysuria. Time Seen by Provider: 11/12/18 09:15 Chief Complaint (Nursing): Shortness Of Breath History Per: Patient History/Exam Limitations: no limitations Onset/Duration Of Symptoms: Days Current Symptoms Are (Timing): Still Present Severity: Moderate Past Medical History Reviewed: Historical Data, Nursing Documentation, Vital Signs Vital Signs: Last Vital Signs Temp 98.4 F 11/12/18 09:15 Pulse 80 11/12/18 10:20 Resp 22 11/12/18 10:20 BP 142/86 11/12/18 10:20 Pulse Ox 97 11/12/18 10:20 - Medical History PMH: Anxiety, Arthritis, Asthma, Bronchitis, COPD, Diabetes (Doesn't know the name of medications), Fractures (toe), Gastritis, HTN, Hypercholesterolemia Denies: Chronic Kidney Disease Surgical History: Back Surgery, Endoscopy - [facility] Procedures NEBULIZER THERAPY (01/08/04) Family History: States: No Known Family Hx - Social History Hx Tobacco Use: Yes Hx Alcohol Use: No Hx Substance Use: No - Immunization History Hx Tetanus Toxoid Vaccination: No Hx Influenza Vaccination: Yes Hx Pneumococcal Vaccination: Yes Review Of Systems Except As Marked, All Systems Reviewed And Found Negative. Constitutional: Negative for: Fever, Chills Cardiovascular: Negative for: Chest Pain Respiratory: Positive for: Shortness of Breath, Wheezing Gastrointestinal: Negative for: Nausea, Vomiting, Abdominal Pain Physical Exam - Physical Exam Appears: Other (audible wheezing, speaking intermittently in short sentences ) Skin: Normal Color, Warm, Dry Head: Atraumatic, Normacephalic Eye(s): bilateral: Normal Inspection Nose: Normal Oral Mucosa: Moist Throat: Normal, No Erythema, No Exudate Neck: Supple Chest: Symmetrical Cardiovascular: Rhythm Regular (with tachycardia) Respiratory: Accessory Muscle Use (mild accessory muscle use), No Rales, No Rhonchi, Wheezing (bilateral diffuse expiratory wheezing) Gastrointestinal/Abdominal: Normal Exam, Soft, No Tenderness, No Guarding, No Rebound Extremity: Normal ROM, Other (no leg edema) Neurological/Psych: Oriented x3, Normal Speech ED Course And Treatment - Laboratory Results Result Diagrams: 11/12/18 09:59 11/12/18 09:59 Lab Results: Total Bilirubin 0.7 mg/dL (0.2-1.3) 11/12/18 09:59 AST 30 U/L (14-36) 11/12/18 09:59 ALT 16 U/L (9-52) 11/12/18 09:59 Alkaline Phosphatase 59 U/L (38-126) 11/12/18 09:59 Total Protein 7.2 g/dL (6.3-8.3) 11/12/18 09:59 Albumin 4.3 g/dL (3.5-5.0) 11/12/18 09:59 Globulin 2.9 gm/dL (2.2-3.9) 11/12/18 09:59 Albumin/Globulin Ratio 1.5 (1.0-2.1) 11/12/18 09:59 O2 Sat by Pulse Oximetry: 97 (RA) Pulse Ox Interpretation: Normal - Other Rad CXR X-Ray: Viewed By Me, Read By Radiologist Interpretation: Accession No. : [id number]. Patient Name / ID : ALEX Patel R / [id number]. Exam Date : 11/12/2018 09:48:22 ( Approved ). Study Comment : Sex / Age : F / 63Y. Creator : mitchell malin. Dictator : Vesta Bright MD. Bottom Wheeler : [place] Compounder : Vesta Bright MD. Approver2 : Report Date : 11/12/2018 09:51:32. My Comment : . HISTORY: SOB. COMPARISON: Chest x-ray performed 09/27/18. TECHNIQUE: Chest, one view. FINDINGS: LUNGS: No focal consolidation. Please note that chest x- ray has limited sensitivity for the detection of pulmonary masses. PLEURA: No significant pleural effusion identified. No definite pneumothorax . CARDIOVASCULAR: Heart size appears within normal limits. No significant atherosclerotic calcification present. OSSEOUS STRUCTURES: Degenerative changes of the spine. Acromioclavicular arthropathy. VISUALIZED UPPER ABDOMEN: Unremarkable. OTHER FINDINGS: None. IMPRESSION: No focal consolidation. Progress Note: Labs, EKG, and CXR ordered. Patient treated with Albuterol, Solu- Medrol IV, and Magnesium Sulfate IV. Disposition - Disposition - Scribe Statement The provider has reviewed the documentation as recorded by the Jesibe Chava Orozco Provider Attestation: All medical record entries made by the Scribe were at my direction and personally dictated by me. I have reviewed the chart and agree that the record accurately reflects my personal performance of the history, physical exam, medical decision making, and the department course for this patient. I have also personally directed, reviewed, and agree with the discharge instructions and disposition.
[2018-11-12] MEDS ORDERED: Magnesium Sulfate 1 gm in D5W 1 GM/100 ML BAG IV ONE (11:08)
[2018-11-12] MEDS ORDERED: Magnesium Sulfate 1 gm in D5W 1 GM/100 ML BAG IVPB ONE ×2 (11:18→12:24)
[2018-11-12] MEDS ORDERED: Glucagon Recombinant 1 mg Inj IM PRN (16:24)
[2018-11-12] MEDS ORDERED: Dextrose 50% SYRINGE Inj (50 ml) IV PRN (16:24)
[2018-11-12] MEDS: (Novolog) Insulin Aspart, Recombinant 100 u/ml 10 ml vial SC SCH ×2 (18:46→22:09)
[2018-11-12] MEDS: Fluticasone Nasal 50 mcg/Spray NS SCH (18:49)
[2018-11-12] MEDS: Promethazine 6.25 MG/5 ML CUP PO PRN (18:57)
[2018-11-12] MEDS: Albuterol 0.083% Inhal Sol (2.5 mg/3 mL) UD INH PRN (19:35)
[2018-11-12] MEDS: MethylPREDNISolone 40 mg Vial IVP SCH (22:10)
[2018-11-13] MEDS: Albuterol 0.083% Inhal Sol (2.5 mg/3 mL) UD INH PRN ×2 (01:22→19:46)
[2018-11-13] MEDS: MethylPREDNISolone 40 mg Vial IVP SCH ×3 (05:47→22:24)
[2018-11-13] MEDS ORDERED: Fluticasone-Vilanterol 100/25mcg Diskus INH SCH (08:00)
[2018-11-13] MEDS: (Novolog) Insulin Aspart, Recombinant 100 u/ml 10 ml vial SC SCH ×4 (08:24→22:28)
[2018-11-13] MEDS ORDERED: NABUMETONE 750 MG PO SCH (10:00)
[2018-11-13] MEDS: Promethazine 6.25 MG/5 ML CUP PO PRN (11:10)
[2018-11-13] MEDS: Enoxaparin 40 mg Syringe SC SCH (11:13)
[2018-11-13] MEDS: Fluticasone Nasal 50 mcg/Spray NS SCH ×2 (11:13→17:43)
[2018-11-13] MEDS: Sodium Chloride 0.45% 1,000 ML IV SCH (12:50)
[2018-11-14] MEDS: MethylPREDNISolone 40 mg Vial IVP SCH ×3 (05:29→21:42)
[2018-11-14] MEDS: Sodium Chloride 0.45% 1,000 ML IV SCH (05:29)
--- NOTE | 2018-11-14 05:46 | HP ---
HISTORY OF PRESENT ILLNESS: This patient is a 63 years old female with history of hypertension and asthma, came to the emergency room because the patient was complaining of shortness of breath. The patient stated having the shortness of breath for the past two days and that was worsening, so the patient comes to the emergency room and was evaluated and he got the medications including the Solu-Medrol and Proventil nebulizer, but with no major changes, so the patient was admitted to regular floor. ALLERGIES: THE PATIENT HAS NO KNOWN ALLERGY. SOCIAL HISTORY: The patient is a and has stopped smoking for the past two months and no history of alcohol abuse. FAMILY HISTORY: No inherited disease. PAST MEDICAL HISTORY: As I mentioned, history of arthritis, asthma, COPD, diabetes, and gastritis, hypertension, hyperlipidemia. REVIEW OF SYSTEMS: RESPIRATORY: The patient is complaining of congestive cough and shortness of breath with minor effort and some whitish secretion, a small amount. CARDIOVASCULAR: The patient denied any chest pain. GASTROINTESTINAL: No nausea or vomiting. No abdominal pain. GENITOURINARY: No dysuria. NEUROLOGIC: The patient feels weak and tired. PHYSICAL EXAMINATION: GENERAL: The patient is alert, awake, oriented x3 and pleasant. VITAL SIGNS: Blood pressure 142/88, pulse is 87, respirations is 20, temperature 98.1, and O2 saturation is 95%. HEAD: Normocephalic, atraumatic. NECK: Supple. LUNGS: Inspiratory and expiratory wheezing and some coarse breath sound. HEART: Regular rate and rhythm and no extra systole. ABDOMEN: Soft, obese, mild epigastric tenderness. Positive bowel sound. EXTREMITIES: There is no edema. NEUROLOGIC: The patient is alert, awake, and oriented x3. No motor or sensory deficits. LABORATORY DATA: The patient had blood work done. WBC is 6.5, hemoglobin 12.5, hematocrit 38.8, and platelets 321. Chemistry: Sodium 140, potassium 4.1, chloride 104, bicarb 29, BUN 23, creatinine 0.6, and glucose 116, calcium 9.5, AST is 30, ALT is 16, alkaline phosphatase 69, albumin is 12.3, globulin 2.9, and the patient also had a chest x-ray that shows that in the lungs there is no focal consolidation. In the pleura, there is no significant pleural effusion identified. No definite pneumothorax. ASSESSMENT AND PLAN: So, the patient is admitted with diagnoses of exacerbation of asthma, hypertension, obesity, and so the patient will have a consult with Dr. Casey, Pulmonary, and the patient will be put on the medication including Solu-Medrol and Proventil nebulizer and Singulair and other medications. The case was reviewed and discussed with Rafaela Simmons, the nurse practitioner. Pratik Block MD
--- NOTE | 2018-11-14 07:58 | CP.PCM.CON ---
History of Present Illness - History of Present Illness History of Present Illness: CHART REVIEWED. PT SEEN AND EXAMINED. 63 YO B FEMALE WITH A HX COPD, HTN, DM, OBESITY, HYPERLIPIDEMIA, OA, PUD, ADM WITH INCREASED MOD SOB WITH MIN EXERTION X 1 WK., +COUGH +WHITE SPUTUM., NO FEVER NO N/V. NO CP. RAN OUT OF MEDS, DUE TO COST. QUIT SMOKING AUGUST. Review of Systems - Constitutional Constitutional: absent: Fever - EENT Eyes: absent: Change in Vision Ears: absent: Dizziness Nose/Mouth/Throat: absent: Nasal Congestion - Cardiovascular Cardiovascular: absent: Chest Pain - Respiratory Respiratory: Cough, Dyspnea, Dyspnea on Exertion, Wheezing, Chest Congestion - Gastrointestinal Gastrointestinal: absent: Diarrhea, Nausea, Vomiting - Musculoskeletal Musculoskeletal: Arthralgias - Integumentary Integumentary: absent: Rash - Neurological Neurological: absent: Confusion, Dizziness, Focal Weakness - Endocrine Endocrine: absent: Polydipsia - Hematologic/Lymphatic Hematologic: absent: Easy Bruising Past Patient History - Infectious Disease Hx of Infectious Diseases: None - Past Medical History & Family History Past Medical History?: Yes Pertinent Family History: HTN - Past Social History Smoking Status: Former Smoker Chewing Tobacco Use: No Cigar Use: No Alcohol: None - CARDIAC Hx Cardiac Disorders: Yes Hx Hypercholesterolemia: Yes Hx Hypertension: Yes - PULMONARY Hx Respiratory Disorders: Yes Hx Asthma: Yes Hx Bronchitis: Yes Hx Chronic Obstructive Pulmonary Disease (COPD): Yes - NEUROLOGICAL Hx Neurological Disorder: No - HEENT Hx HEENT Problems: No - RENAL Hx Chronic Kidney Disease: No - ENDOCRINE/METABOLIC Hx Endocrine Disorders: Yes Hx Diabetes Mellitus Type 2: Yes - HEMATOLOGICAL/ONCOLOGICAL Hx Blood Disorders: No - INTEGUMENTARY Hx Dermatological Problems: No - MUSCULOSKELETAL/RHEUMATOLOGICAL Hx Musculoskeletal Disorders: Yes Hx Arthritis: Yes Hx Falls: No Hx Fractures: Yes (toe) - GASTROINTESTINAL Hx Gastrointestinal Disorders: Yes Hx Gastritis: Yes - GENITOURINARY/GYNECOLOGICAL Hx Genitourinary Disorders: No - PSYCHIATRIC Hx Psychophysiologic Disorder: Yes Hx Anxiety: Yes Hx Substance Use: No - SURGICAL HISTORY Hx Surgeries: Yes Hx Orthopedic Surgery: Yes (right foot, nasal.) Other/Comment: back - ANESTHESIA Hx Anesthesia: Yes Hx Anesthesia Reactions: No Hx Malignant Hyperthermia: No Meds Allergies/Adverse Reactions: Allergies Allergy/AdvReac Type Severity Reaction Status Date / Time No Known Allergies Allergy Verified 08/24/18 15:13 - Medications Medications: Current Medications Acetaminophen (Tylenol 325mg Tab) 650 mg PO Q6 PRN PRN Reason: Pain, moderate (4-7) Albuterol Sulfate (Albuterol 0.083% Inhal Ashleigh (2.5 Mg/3 Ml) Ud) 2.5 mg INH RQ6 PRN PRN Reason: Shortness of Breath Last Admin: 11/13/18 19:46 Dose: 2.5 mg Baclofen (Lioresal) 10 mg PO BID [facility] Last Admin: 11/13/18 17:42 Dose: 10 mg Dextrose (Dextrose 50% Inj) 0 ml IV STAT PRN; Protocol PRN Reason: Hypoglycemia Protocol Dextrose (Glutose 15) 0 gm PO ONCE PRN; Protocol PRN Reason: Hypoglycemia Protocol Enoxaparin Sodium (Lovenox) 40 mg SC DAILY [facility] Last Admin: 11/13/18 11:13 Dose: 40 mg Ergocalciferol (Drisdol 50,000 Intl Units Cap) 50,000 cap PO QWK [facility] Fluticasone Propionate (Flonase) 1 spr NS BID [facility] Last Admin: 11/13/18 17:43 Dose: 1 applic Fluticasone/Vilanterol (Breo Ellipta 100-25 Mcg Inh) 1 puff INH RQ24 [facility] Gabapentin (Neurontin) 300 mg PO BID [facility] Last Admin: 11/13/18 17:42 Dose: 300 mg Glucagon (Glucagen Diagnostic Kit) 0 mg IM STAT PRN; Protocol PRN Reason: Hypoglycemia Protocol Sodium Chloride (Sodium Chloride 0.45%) 1,000 mls @ 60 mls/hr IV .[id number] [facility] Stop: 11/14/18 12:46 Last Admin: 11/14/18 05:29 Dose: 60 mls/hr Insulin Aspart (Novolog) 0 unit SC ACHS [facility]; Protocol Last Admin: 11/13/18 22:28 Dose: Not Given Lisinopril (Zestril) 20 mg PO DAILY [facility] Last Admin: 11/13/18 11:12 Dose: 20 mg Metformin HCl (Glucophage) 500 mg PO DAILY [facility] Last Admin: 11/13/18 10:15 Dose: 500 mg Methylprednisolone (Solu-Medrol) 40 mg IVP Q8 [facility] Last Admin: 11/14/18 05:29 Dose: 40 mg Montelukast Sodium (Singulair) 10 mg PO DAILY [facility] Last Admin: 11/13/18 11:12 Dose: 10 mg Pantoprazole Sodium (Protonix Inj) 40 mg IVP DAILY [facility] Last Admin: 11/13/18 11:12 Dose: 40 mg Promethazine HCl (Phenergan Syrup) 6.25 mg PO Q6 PRN PRN Reason: Cough Last Admin: 11/13/18 11:10 Dose: 6.25 mg Rosuvastatin Calcium (Crestor) 5 mg PO HS [facility] Last Admin: 11/13/18 22:24 Dose: 5 mg Physical Exam - Head Exam Head Exam: ATRAUMATIC, NORMOCEPHALIC - Eye Exam Eye Exam: EOMI, Normal appearance - ENT Exam ENT Exam: Mucous Membranes Moist - Neck Exam Neck exam: Positive for: Normal Inspection - Respiratory Exam Respiratory Exam: Decreased Breath Sounds, Prolonged Expiratory Phase, Wheezes. absent: Accessory Muscle Use - Cardiovascular Exam Cardiovascular Exam: RRR, +S1, +S2 - GI/Abdominal Exam GI & Abdominal Exam: Soft. absent: Tenderness - Rectal Exam Rectal Exam: Deferred - Extremities Exam Extremities exam: Negative for: calf tenderness, pedal edema - Back Exam Back exam: absent: CVA tenderness (L), CVA tenderness (R) - Neurological Exam Neurological exam: Alert, CN II-XII Intact, Normal Gait, Oriented x3 - Psychiatric Exam Psychiatric exam: Normal Mood Results - Vital Signs Recent Vital Signs: Last Vital Signs Temp 97.5 F L 11/13/18 23:45 Pulse 86 11/14/18 03:35 Resp 20 11/13/18 23:45 BP 163/89 H 11/13/18 23:45 Pulse Ox 96 11/13/18 23:45 - Labs Result Diagrams: 11/12/18 09:59 11/12/18 09:59 Labs: Laboratory Results - last 24 hr 11/13/18 21:43 POC Glucose (mg/dL) 144 H Assessment & Plan (1) Obesity Status: Acute (2) COPD exacerbation Status: Acute (3) Diabetes Status: Acute (4) GERD (gastroesophageal reflux disease) Status: Acute (5) Hyperlipidemia Status: Acute (6) Hypertension Status: Acute - Assessment and Plan (Free Text) Assessment: 63 YO FEMALE WITH A HX MULT MED PROBS ADM WITH COPD EXAC, +SEVERE BRONCHITIS, UNABLE TO AFFORD MAINTENANCE MEDS., CXR REVIEWED/. CONT NEB BD., ADVAIR, ARNOLDOIR., EMPIRIC AB. IV STEROIDS TAPER TOLERATED. MONITOR PEAK FLOWS. GI/DVT PROPHYLAXIS. DISCUSSED WITH STAFF AT LENGTH.
--- NOTE | 2018-11-14 08:15 | CARD ---
APPROVED REPORT Date of service: 11/12/2018 EKG Measurement Heart [id number] <Conclusion> Normal sinus rhythm Minimal voltage criteria for LVH, may be normal variant Borderline ECG
[2018-11-14 08:21] LABS: BASO % 0.3 % (0.0-2.0); EOS % 0.1 % (0.0-4.0); HEMOGLOBIN 12.8 g/dL (11.0-16.0); LYMPH # 1.1 K/uL (1.0-4.3); LYMPH % 7.2 % (20.0-40.0); MEAN CELL VOLUME 90.6 fL (81.0-99.0); MEAN CORPUSCULAR HEMOGLOBIN 29.2 pg (27.0-31.0); MEAN CORPUSCULAR HGB CONC 32.2 g/dL (33.0-37.0); MEAN PLATELET VOLUME 8.3 fL (7.2-11.7); MONO # 0.5 K/uL (0.0-0.8); MONO % 3.3 % (0.0-10.0); NEUT # 14.2 K/uL (1.8-7.0); NEUT % 89.1 % (50.0-75.0); PLATELET COUNT 353 K/uL (130-400); RBC 4.37 Mil/uL (3.80-5.20); RED CELL DISTRIBUTION WIDTH 14.9 % (11.5-14.5)
[2018-11-14 08:22] LABS: WHITE BLOOD COUNT 15.9 K/uL (4.8-10.8)
[2018-11-14 08:44] LABS: BLOOD UREA NITROGEN 25 mg/dL (7-17); CALCIUM 9.7 mg/dl (8.6-10.4); GFR NON-AFRICAN AMERICAN > 60
[2018-11-14] MEDS: Fluticasone Nasal 50 mcg/Spray NS SCH ×2 (09:07→17:36)
[2018-11-14] MEDS: (Novolog) Insulin Aspart, Recombinant 100 u/ml 10 ml vial SC SCH ×4 (09:09→21:23)
[2018-11-14] MEDS: Enoxaparin 40 mg Syringe SC SCH (09:10)
[2018-11-14 09:13] LABS: ANISOCYTOSIS SLIGHT; BANDS 1 % (0-2); LYMPHOCYTE 7 % (20-40); MONOCYTE 5 % (0-10); NEUTROPHIL 87 % (50-75); PLATELET ESTIMATE NORMAL (NORMAL); TOTAL CELLS COUNTED 100
[2018-11-14 09:14] LABS: HYPOCHROMIC SLIGHT; LARGE PLATELETS PRESENT; POLYCHROMIC SLIGHT
[2018-11-14] MEDS: Albuterol-Ipratrop 3 mg / 0.5 (3 ml) UD INH SCH (20:23)
--- NOTE | 2018-11-14 21:54 | PN ---
DATE: 11/14/2018 SUBJECTIVE: The patient is still complaining of shortness of breath with minor effort. Has congestive cough. She denied any chest pain. No palpitation. No dysuria. The patient is still weak. PHYSICAL EXAMINATION: VITAL SIGNS: The patient had a blood pressure of 132/86, pulse 84, respirations 20, temperature 98.1. NECK: Supple. LUNGS: Coarse breath sounds. No inspiratory or expiratory wheezing. HEART: Regular rate and rhythm and positive murmur. ABDOMEN: Soft. Mild epigastric tenderness. EXTREMITIES: There is no edema. LABORATORY DATA: Recent blood work showed a WBC 15.9, hemoglobin 12.8, hematocrit 39.6, and platelets of 263. Chemistry: Sodium 137, potassium 4.8, chloride 101, BUN 25, creatinine 0.7, glucose of 154, and calcium 9.7. ASSESSMENT AND PLAN: We are going to continue Solu-Medrol and . Pratik Block MD
[2018-11-15] MEDS: Albuterol-Ipratrop 3 mg / 0.5 (3 ml) UD INH SCH ×5 (01:42→20:33)
[2018-11-15] MEDS: MethylPREDNISolone 40 mg Vial IVP SCH ×3 (05:45→22:08)
[2018-11-15] MEDS: (Novolog) Insulin Aspart, Recombinant 100 u/ml 10 ml vial SC SCH ×4 (10:00→22:07)
[2018-11-15] MEDS: Enoxaparin 40 mg Syringe SC SCH (10:14)
[2018-11-15] MEDS: Fluticasone Nasal 50 mcg/Spray NS SCH ×2 (10:17→17:29)
--- NOTE | 2018-11-15 13:08 | CP.PCM.PN ---
Subjective - Date & Time of Evaluation Date of Evaluation: 11/15/18 Time of Evaluation: 13:06 - Subjective Subjective: PT FEELS BETTER, STILL COUGH + THICK SPUTUM., ROS; OTHERWISE NEG. Objective - Vital Signs/Intake and Output Vital Signs (last 24 hours): Temp Pulse Resp BP Pulse Ox 97.7 F 90 20 134/89 96 11/15/18 08:53 11/15/18 08:53 11/15/18 08:53 11/15/18 08:53 11/15/18 08:53 Intake and Output: 11/15/18 11/15/18 06:59 18:59 Intake Total Balance - Medications Medications: Current Medications Acetaminophen (Tylenol 325mg Tab) 650 mg PO Q6 PRN PRN Reason: Pain, moderate (4-7) Albuterol/Ipratropium (Duoneb 3 Mg/0.5 Mg (3 Ml) Ud) 3 ml INH RQ6 [facility] Last Admin: 11/15/18 01:57 Dose: 3 ml Baclofen (Lioresal) 10 mg PO BID [facility] Last Admin: 11/15/18 10:17 Dose: 10 mg Dextrose (Dextrose 50% Inj) 0 ml IV STAT PRN; Protocol PRN Reason: Hypoglycemia Protocol Dextrose (Glutose 15) 0 gm PO ONCE PRN; Protocol PRN Reason: Hypoglycemia Protocol Enoxaparin Sodium (Lovenox) 40 mg SC DAILY [facility] Last Admin: 11/15/18 10:14 Dose: 40 mg Ergocalciferol (Drisdol 50,000 Intl Units Cap) 50,000 cap PO QWK [facility] Fluticasone Propionate (Flonase) 1 spr NS BID [facility] Last Admin: 11/15/18 10:17 Dose: 1 applic Fluticasone/Vilanterol (Breo Ellipta 100-25 Mcg Inh) 1 puff INH RQ24 [facility] Last Admin: 11/14/18 09:07 Dose: 1 puff Gabapentin (Neurontin) 300 mg PO BID [facility] Last Admin: 11/15/18 10:14 Dose: 300 mg Glucagon (Glucagen Diagnostic Kit) 0 mg IM STAT PRN; Protocol PRN Reason: Hypoglycemia Protocol Insulin Aspart (Novolog) 0 unit SC ACHS [facility]; Protocol Last Admin: 11/14/18 21:23 Dose: Not Given Lisinopril (Zestril) 20 mg PO DAILY [facility] Last Admin: 11/15/18 10:14 Dose: 20 mg Metformin HCl (Glucophage) 500 mg PO DAILY [facility] Last Admin: 11/15/18 10:14 Dose: 500 mg Methylprednisolone (Solu-Medrol) 40 mg IVP Q8 [facility] Last Admin: 11/15/18 05:45 Dose: 40 mg Montelukast Sodium (Singulair) 10 mg PO DAILY [facility] Last Admin: 11/15/18 10:13 Dose: 10 mg Pantoprazole Sodium (Protonix Inj) 40 mg IVP DAILY [facility] Last Admin: 11/15/18 10:14 Dose: 40 mg Promethazine HCl (Phenergan Syrup) 6.25 mg PO Q6 PRN PRN Reason: Cough Last Admin: 11/13/18 11:10 Dose: 6.25 mg Rosuvastatin Calcium (Crestor) 5 mg PO HS [facility] Last Admin: 11/14/18 21:42 Dose: 5 mg - Labs Labs: 11/14/18 08:06 11/14/18 08:06 - Constitutional Appears: Non-toxic, No Acute Distress - Head Exam Head Exam: ATRAUMATIC, NORMOCEPHALIC - Eye Exam Eye Exam: EOMI, Normal appearance - ENT Exam ENT Exam: Mucous Membranes Moist - Neck Exam Neck Exam: Normal Inspection - Respiratory Exam Respiratory Exam: Decreased Breath Sounds, Prolonged Expiratory Phase, Wheezes. absent: Accessory Muscle Use - Cardiovascular Exam Cardiovascular Exam: RRR, +S1, +S2 - GI/Abdominal Exam GI & Abdominal Exam: Soft. absent: Tenderness - Rectal Exam Rectal Exam: Deferred - Extremities Exam Extremities Exam: absent: Calf Tenderness, Pedal Edema - Back Exam Back Exam: absent: CVA tenderness (L), CVA tenderness (R) - Neurological Exam Neurological Exam: Alert, Awake, CN II-XII Intact, Oriented x3 - Psychiatric Exam Psychiatric exam: Normal Mood - Skin Skin Exam: absent: Rash Assessment and Plan (1) Obesity Status: Acute (2) COPD exacerbation Status: Acute (3) Diabetes Status: Acute (4) GERD (gastroesophageal reflux disease) Status: Acute (5) Hyperlipidemia Status: Acute (6) Hypertension Status: Acute - Assessment and Plan (Free Text) Assessment: RESP STATUS STILL WITH SIG BRONCHOSPASM., CONT NEB BD , ADD MUCOMYST., CONT STEROIDS, ADVAIR., SINGULAIR. CXR REVIEWED. DISCUSSED WITH STAFF AT LENGTH.
[2018-11-15] MEDS: Acetylcysteine 20% Inhal Soln (4ml) INH SCH ×2 (13:37→20:33)
[2018-11-15] MEDS: Promethazine DM 6.25 mg-15 mg/5 ml Syrup PO SCH ×2 (15:13→22:08)
--- NOTE | 2018-11-16 01:08 | PN ---
DATE: 11/15/2018 SUBJECTIVE: The patient was seen this afternoon and examined. The patient is still complaining of some shortness of breath and congestive cough, and she is tired. The patient denies any chest pain or palpitation. No constipation. PHYSICAL EXAMINATION: VITAL SIGNS: The patient has a blood pressure of 129/79, pulse 86, respirations 18, and temperature 98.4. NECK: Supple. LUNGS: Coarse breath sounds. No inspiratory or expiratory wheezing. HEART: Regular rate and rhythm. ABDOMEN: Soft, nontender. Obese. EXTREMITIES: There is no edema. PLAN: The patient was on Solu-Medrol. We are going to continue the Solu-Medrol. We are going to change Proventil nebulizer from every 6 hours to every 4 hours and then also Phenergan DM will be added 5 mL every 8 hours, and we are going to continue to follow this patient in the hospital. Labs will be ordered for tomorrow. Pratik Block MD
[2018-11-16] MEDS: Albuterol-Ipratrop 3 mg / 0.5 (3 ml) UD INH SCH ×7 (01:13→23:25)
[2018-11-16] MEDS: Acetylcysteine 20% Inhal Soln (4ml) INH SCH ×2 (01:13→07:12)
[2018-11-16 02:36] VITALS: RESP 20
[2018-11-16] MEDS: MethylPREDNISolone 40 mg Vial IVP SCH ×2 (06:09→22:36)
[2018-11-16] MEDS: Promethazine DM 6.25 mg-15 mg/5 ml Syrup PO SCH ×3 (06:09→22:36)
[2018-11-16 08:03] LABS: BASO % 0.3 % (0.0-2.0); HEMOGLOBIN 12.7 g/dL (11.0-16.0); LYMPH # 1.4 K/uL (1.0-4.3); LYMPH % 10.6 % (20.0-40.0); MEAN CELL VOLUME 90.7 fL (81.0-99.0); MEAN CORPUSCULAR HEMOGLOBIN 28.5 pg (27.0-31.0); MEAN CORPUSCULAR HGB CONC 31.5 g/dL (33.0-37.0); MEAN PLATELET VOLUME 8.2 fL (7.2-11.7); MONO # 0.6 K/uL (0.0-0.8); MONO % 4.5 % (0.0-10.0); NEUT # 10.9 K/uL (1.8-7.0); NEUT % 84.6 % (50.0-75.0); RBC 4.44 Mil/uL (3.80-5.20); RED CELL DISTRIBUTION WIDTH 14.7 % (11.5-14.5); WHITE BLOOD COUNT 12.9 K/uL (4.8-10.8)
[2018-11-16 08:17] LABS: ALB/GLOB RATIO 1.6 (1.0-2.1); ALBUMIN 4.2 g/dL (3.5-5.0); ALT/SGPT 17 U/L (9-52); AST/SGOT 19 U/L (14-36); BLOOD UREA NITROGEN 24 mg/dL (7-17); CALCIUM 9.4 mg/dl (8.6-10.4); GFR NON-AFRICAN AMERICAN > 60
[2018-11-16] MEDS: Pantoprazole 40 mg EC Tab PO SCH (09:36)
[2018-11-16] MEDS: (Novolog) Insulin Aspart, Recombinant 100 u/ml 10 ml vial SC SCH ×4 (09:37→22:37)
[2018-11-16] MEDS: Enoxaparin 40 mg Syringe SC SCH (09:37)
[2018-11-16] MEDS: Fluticasone Nasal 50 mcg/Spray NS SCH ×2 (09:57→17:46)
--- NOTE | 2018-11-16 17:42 | CP.PCM.PN ---
Subjective - Date & Time of Evaluation Date of Evaluation: 11/16/18 Time of Evaluation: 17:40 - Subjective Subjective: PT ALERT, LESS SOB., LESS COUGH. ROS; OTHERWISE NEG. Objective - Vital Signs/Intake and Output Vital Signs (last 24 hours): Temp Pulse Resp BP Pulse Ox 97.6 F 86 20 150/91 H 99 11/16/18 15:00 11/16/18 15:00 11/16/18 15:00 11/16/18 15:00 11/16/18 15:00 Intake and Output: 11/16/18 11/16/18 06:59 18:59 Intake Total 720 Balance 720 - Medications Medications: Current Medications Acetaminophen (Tylenol 325mg Tab) 650 mg PO Q6 PRN PRN Reason: Pain, moderate (4-7) Acetylcysteine (Acetylcysteine 20%) 4 ml INH RQ6 [facility] Last Admin: 11/16/18 07:12 Dose: 4 ml Albuterol/Ipratropium (Duoneb 3 Mg/0.5 Mg (3 Ml) Ud) 3 ml INH RQ4 [facility] Last Admin: 11/16/18 11:12 Dose: 3 ml Azithromycin (Zithromax) 250 mg PO DAILY [facility]; Protocol Last Admin: 11/16/18 09:36 Dose: 250 mg Baclofen (Lioresal) 10 mg PO BID [facility] Last Admin: 11/16/18 09:43 Dose: 10 mg Dextrose (Dextrose 50% Inj) 0 ml IV STAT PRN; Protocol PRN Reason: Hypoglycemia Protocol Dextrose (Glutose 15) 0 gm PO ONCE PRN; Protocol PRN Reason: Hypoglycemia Protocol Enoxaparin Sodium (Lovenox) 40 mg SC DAILY [facility] Last Admin: 11/16/18 09:37 Dose: 40 mg Ergocalciferol (Drisdol 50,000 Intl Units Cap) 50,000 cap PO QWK [facility] Fluticasone Propionate (Flonase) 1 spr NS BID [facility] Last Admin: 11/16/18 09:57 Dose: 1 spr Fluticasone/Vilanterol (Breo Ellipta 100-25 Mcg Inh) 1 puff INH RQ24 [facility] Last Admin: 11/14/18 09:07 Dose: 1 puff Gabapentin (Neurontin) 300 mg PO BID [facility] Last Admin: 11/16/18 09:37 Dose: 300 mg Glucagon (Glucagen Diagnostic Kit) 0 mg IM STAT PRN; Protocol PRN Reason: Hypoglycemia Protocol Insulin Aspart (Novolog) 0 unit SC ACHS [facility]; Protocol Last Admin: 11/16/18 12:20 Dose: 4 units Lisinopril (Zestril) 20 mg PO DAILY [facility] Last Admin: 11/16/18 09:36 Dose: 20 mg Metformin HCl (Glucophage) 500 mg PO DAILY [facility] Last Admin: 11/16/18 09:37 Dose: 500 mg Methylprednisolone (Solu-Medrol) 40 mg IVP Q12 [facility] Montelukast Sodium (Singulair) 10 mg PO DAILY [facility] Last Admin: 11/16/18 09:36 Dose: 10 mg Pantoprazole Sodium (Protonix Ec Tab) 40 mg PO DAILY [facility] Last Admin: 11/16/18 09:36 Dose: 40 mg Promethazine HCl/Dextromethorphan (Phenergan Dm Syrup) 5 ml PO Q8H [facility] Last Admin: 11/16/18 14:45 Dose: 5 ml Rosuvastatin Calcium (Crestor) 5 mg PO HS [facility] Last Admin: 11/15/18 22:09 Dose: 5 mg - Labs Labs: 11/16/18 07:26 11/16/18 07:26 - Constitutional Appears: No Acute Distress - Head Exam Head Exam: ATRAUMATIC, NORMOCEPHALIC - Eye Exam Eye Exam: EOMI, Normal appearance - ENT Exam ENT Exam: Mucous Membranes Moist - Neck Exam Neck Exam: Normal Inspection - Respiratory Exam Respiratory Exam: Decreased Breath Sounds, Prolonged Expiratory Phase. absent: Rhonchi, Respiratory Distress Additional comments: END EXP WHEEZE., BETTER AIR MOVEMENT. - Cardiovascular Exam Cardiovascular Exam: RRR, +S1, +S2 - GI/Abdominal Exam GI & Abdominal Exam: Soft. absent: Tenderness - Rectal Exam Rectal Exam: Deferred - Extremities Exam Extremities Exam: absent: Calf Tenderness, Pedal Edema - Back Exam Back Exam: absent: CVA tenderness (L), CVA tenderness (R) - Neurological Exam Neurological Exam: Alert, Awake, CN II-XII Intact, Oriented x3 - Psychiatric Exam Psychiatric exam: Normal Mood - Skin Skin Exam: absent: Rash Assessment and Plan (1) Obesity Status: Acute (2) COPD exacerbation Status: Acute (3) Diabetes Status: Acute (4) GERD (gastroesophageal reflux disease) Status: Acute (5) Hyperlipidemia Status: Acute (6) Hypertension Status: Acute - Assessment and Plan (Free Text) Assessment: RESP STATUS IMPROVING., CONT NEB BD., MONITOR O2 SAT. ON BREO AND SINGULAIR., AFEBRILE ON AB. CXR REVIEWED. STEROID TAPER TOLERATED. DISCUSSED WITH STAFF AT LENGTH.
--- NOTE | 2018-11-17 02:34 | PN ---
DATE: 11/16/2018 SUBJECTIVE: Today, the patient is alert and awake, but she is complaining of some shortness of breath and productive cough. Negative chest pain. Negative palpitations. PHYSICAL EXAMINATION: VITAL SIGNS: The patient has a blood pressure of 150/91, pulse 86, respirations 20, temperature 97.6, O2 saturation 99%. NECK: Supple. LUNGS: Some expiratory wheezing, improving. HEART: Regular rate and rhythm. ABDOMEN: Soft, obese, nontender. EXTREMITIES: No edema. LABORATORY DATA: Blood work done showed that WBC 12.9, hemoglobin 12.7, hematocrit 40.2 and platelets 318. Chemistry: Sodium 137, potassium 4.7, chloride 99, BUN 24, creatinine 0.7 and glucose 197. Calcium 9.4. Magnesium is 1.8. AST 19, ALT 17, alkaline phosphatase 60. PLAN: We are going to decrease the Solu-Medrol to 40 every 12 hours and continue current medication. Case was discussed with the nurse attending this patient. Pratik Block MD
[2018-11-17] MEDS: Albuterol-Ipratrop 3 mg / 0.5 (3 ml) UD INH SCH ×2 (04:00→07:45)
[2018-11-17] MEDS: Promethazine DM 6.25 mg-15 mg/5 ml Syrup PO SCH ×2 (05:00→13:07)
[2018-11-17] MEDS: (Novolog) Insulin Aspart, Recombinant 100 u/ml 10 ml vial SC SCH ×2 (08:13→13:06)
[2018-11-17 08:39] VITALS: BP 149/114; PULSE 76; TEMP 97.5; O2SAT 97
[2018-11-17] MEDS ORDERED: Acetylcysteine 20% Inhal Soln (4ml) INH SCH (08:45)
--- NOTE | 2018-11-17 08:47 | CP.PCM.PN ---
Subjective - Date & Time of Evaluation Date of Evaluation: 11/17/18 Time of Evaluation: 08:45 - Subjective Subjective: PT OOB, STILL ++COUGH, BETTER WITH MUCOMYST. ROS; OTHERWISE NEG Objective - Vital Signs/Intake and Output Vital Signs (last 24 hours): Temp Pulse Resp BP Pulse Ox 97.5 F L 76 20 149/114 H 97 11/17/18 08:37 11/17/18 08:37 11/17/18 08:37 11/17/18 08:37 11/17/18 08:37 - Medications Medications: Current Medications Acetaminophen (Tylenol 325mg Tab) 650 mg PO Q6 PRN PRN Reason: Pain, moderate (4-7) Acetylcysteine (Acetylcysteine 20%) 4 ml INH Q6H [facility] Albuterol/Ipratropium (Duoneb 3 Mg/0.5 Mg (3 Ml) Ud) 3 ml INH RQ6 [facility] Azithromycin (Zithromax) 250 mg PO DAILY [facility]; Protocol Last Admin: 11/16/18 09:36 Dose: 250 mg Baclofen (Lioresal) 10 mg PO BID [facility] Last Admin: 11/16/18 18:45 Dose: 10 mg Dextrose (Dextrose 50% Inj) 0 ml IV STAT PRN; Protocol PRN Reason: Hypoglycemia Protocol Dextrose (Glutose 15) 0 gm PO ONCE PRN; Protocol PRN Reason: Hypoglycemia Protocol Enoxaparin Sodium (Lovenox) 40 mg SC DAILY [facility] Last Admin: 11/16/18 09:37 Dose: 40 mg Ergocalciferol (Drisdol 50,000 Intl Units Cap) 50,000 cap PO QWK [facility] Fluticasone Propionate (Flonase) 1 spr NS BID [facility] Last Admin: 11/16/18 17:46 Dose: 1 spr Fluticasone/Vilanterol (Breo Ellipta 100-25 Mcg Inh) 1 puff INH RQ24 [facility] Last Admin: 11/14/18 09:07 Dose: 1 puff Gabapentin (Neurontin) 300 mg PO BID [facility] Last Admin: 11/16/18 17:46 Dose: 300 mg Glucagon (Glucagen Diagnostic Kit) 0 mg IM STAT PRN; Protocol PRN Reason: Hypoglycemia Protocol Insulin Aspart (Novolog) 0 unit SC ACHS [facility]; Protocol Last Admin: 11/17/18 08:13 Dose: 4 units Lisinopril (Zestril) 20 mg PO DAILY [facility] Last Admin: 11/16/18 09:36 Dose: 20 mg Metformin HCl (Glucophage) 500 mg PO DAILY [facility] Last Admin: 11/16/18 09:37 Dose: 500 mg Methylprednisolone (Solu-Medrol) 40 mg IVP Q12 [facility] Last Admin: 11/16/18 22:36 Dose: 40 mg Montelukast Sodium (Singulair) 10 mg PO DAILY [facility] Last Admin: 11/16/18 09:36 Dose: 10 mg Pantoprazole Sodium (Protonix Ec Tab) 40 mg PO DAILY [facility] Last Admin: 11/16/18 09:36 Dose: 40 mg Promethazine HCl/Dextromethorphan (Phenergan Dm Syrup) 5 ml PO Q8H [facility] Last Admin: 11/17/18 05:00 Dose: 5 ml Rosuvastatin Calcium (Crestor) 5 mg PO HS [facility] Last Admin: 11/16/18 22:37 Dose: 5 mg - Labs Labs: 11/16/18 07:26 11/16/18 07:26 - Constitutional Appears: Non-toxic - Head Exam Head Exam: ATRAUMATIC, NORMOCEPHALIC - Eye Exam Eye Exam: EOMI, Normal appearance - ENT Exam ENT Exam: Mucous Membranes Moist - Respiratory Exam Respiratory Exam: Decreased Breath Sounds, Prolonged Expiratory Phase, Rhonchi, Wheezes. absent: Respiratory Distress - Cardiovascular Exam Cardiovascular Exam: RRR, +S1, +S2 - GI/Abdominal Exam GI & Abdominal Exam: Soft. absent: Tenderness - Rectal Exam Rectal Exam: Deferred - Extremities Exam Extremities Exam: absent: Calf Tenderness, Pedal Edema - Back Exam Back Exam: absent: CVA tenderness (L), CVA tenderness (R) - Neurological Exam Neurological Exam: Alert, Awake, CN II-XII Intact, Normal Gait, Oriented x3 - Psychiatric Exam Psychiatric exam: Normal Mood - Skin Skin Exam: absent: Rash Assessment and Plan (1) Obesity Status: Acute (2) COPD exacerbation Status: Acute (3) Diabetes Status: Acute (4) GERD (gastroesophageal reflux disease) Status: Acute (5) Hyperlipidemia Status: Acute (6) Hypertension Status: Acute - Assessment and Plan (Free Text) Assessment: RESP STATUS STILL WITH SIG BRONCHOSPASM., CONT STEROIDS, RESUME MUCOMYST WITH DUONEB. CONT BREO AND SINGULAIR. CXR REVIEWED. CONT ZMAX. DISCUSSED WITH STAFF AT LENGTH.
[2018-11-17] MEDS: MethylPREDNISolone 40 mg Vial IVP SCH (09:06)
[2018-11-17] MEDS: Pantoprazole 40 mg EC Tab PO SCH (09:06)
[2018-11-17] MEDS: Enoxaparin 40 mg Syringe SC SCH (09:06)
[2018-11-17] MEDS: Fluticasone Nasal 50 mcg/Spray NS SCH (09:07)
--- NOTE | 2018-11-17 13:39 | CP.PCM.PN ---
Subjective - Date & Time of Evaluation Date of Evaluation: 11/17/18 Time of Evaluation: 13:38 - Subjective Subjective: PATIENT SEEN AND EXAMINED AT THE BEDSIDE Objective - Vital Signs/Intake and Output Vital Signs (last 24 hours): Temp Pulse Resp BP Pulse Ox 97.5 F L 76 20 149/114 H 97 11/17/18 08:37 11/17/18 08:37 11/17/18 08:37 11/17/18 08:37 11/17/18 08:37 - Medications Medications: Current Medications Acetaminophen (Tylenol 325mg Tab) 650 mg PO Q6 PRN PRN Reason: Pain, moderate (4-7) Acetylcysteine (Acetylcysteine 20%) 4 ml INH RQ6 [facility] Last Admin: 11/17/18 08:45 Dose: 4 ml Albuterol/Ipratropium (Duoneb 3 Mg/0.5 Mg (3 Ml) Ud) 3 ml INH RQ6 [facility] Azithromycin (Zithromax) 250 mg PO DAILY [facility]; Protocol Last Admin: 11/17/18 09:06 Dose: 250 mg Baclofen (Lioresal) 10 mg PO BID [facility] Last Admin: 11/17/18 09:06 Dose: 10 mg Dextrose (Dextrose 50% Inj) 0 ml IV STAT PRN; Protocol PRN Reason: Hypoglycemia Protocol Dextrose (Glutose 15) 0 gm PO ONCE PRN; Protocol PRN Reason: Hypoglycemia Protocol Enoxaparin Sodium (Lovenox) 40 mg SC DAILY [facility] Last Admin: 11/17/18 09:06 Dose: 40 mg Ergocalciferol (Drisdol 50,000 Intl Units Cap) 50,000 cap PO QWK [facility] Fluticasone Propionate (Flonase) 1 spr NS BID [facility] Last Admin: 11/17/18 09:07 Dose: 1 spr Fluticasone/Vilanterol (Breo Ellipta 100-25 Mcg Inh) 1 puff INH RQ24 [facility] Last Admin: 11/14/18 09:07 Dose: 1 puff Gabapentin (Neurontin) 300 mg PO BID [facility] Last Admin: 11/17/18 09:06 Dose: 300 mg Glucagon (Glucagen Diagnostic Kit) 0 mg IM STAT PRN; Protocol PRN Reason: Hypoglycemia Protocol Insulin Aspart (Novolog) 0 unit SC ACHS [facility]; Protocol Last Admin: 11/17/18 13:06 Dose: 3 units Lisinopril (Zestril) 20 mg PO DAILY [facility] Last Admin: 11/17/18 09:07 Dose: 20 mg Metformin HCl (Glucophage) 500 mg PO DAILY [facility] Last Admin: 11/17/18 09:06 Dose: 500 mg Methylprednisolone (Solu-Medrol) 40 mg IVP Q12 [facility] Last Admin: 11/17/18 09:06 Dose: 40 mg Montelukast Sodium (Singulair) 10 mg PO DAILY [facility] Last Admin: 11/17/18 09:06 Dose: 10 mg Pantoprazole Sodium (Protonix Ec Tab) 40 mg PO DAILY [facility] Last Admin: 11/17/18 09:06 Dose: 40 mg Promethazine HCl/Dextromethorphan (Phenergan Dm Syrup) 5 ml PO Q8H [facility] Last Admin: 11/17/18 13:07 Dose: 5 ml Rosuvastatin Calcium (Crestor) 5 mg PO HS [facility] Last Admin: 11/16/18 22:37 Dose: 5 mg - Labs Labs: 11/16/18 07:26 11/16/18 07:26 Assessment and Plan - Assessment and Plan (Free Text) Assessment: FOLLOW UP WITH DR ARDON IN HIS OFFICE -----CALL FOR APPOINTMENT CONTINUE HOME MEDICATION NEW PRESCRIPTION GIVEN ALBUTEROL REFILL PRESCRIPTION ALENDRONATE 70MG PO QWK PREDNISONE TAPER DIRECTED ACTIVITY TOLERATED CALL DR ARDON OR GO TO THE EMERGENCY ROOM IF SYMPTOM RETURN OR WORSENING
[2018-11-17] MEDS ORDERED: Albuterol-Ipratrop 3 mg / 0.5 (3 ml) UD INH SCH (14:00)
--- NOTE | 2018-11-18 06:45 | PN ---
DATE: 11/17/2018 SUBJECTIVE: Today, the patient was seen and examined. The patient denies any shortness of breath at rest. The patient able to ambulate in the hallway of more than 60 steps and denies any chest pain, although the patient admits of occasional cough. PHYSICAL EXAMINATION: VITAL SIGNS: The patient has a blood pressure 130/76, pulse 78, respirations 20, temperature 97.6. NECK: Supple. LUNGS: There is some fine rales noted but much much less from yesterday. HEART: Regular rate and rhythm. ABDOMEN: Soft. Positive bowel sounds. Nontender. EXTREMITIES: There is no edema. There is some tenderness at the left waist. ASSESSMENT AND PLAN: The patient in and the patient had some blood test done and that was done on 11/16/2018. White blood cells was 12, . Now the plan is that we are going to discontinue the IV Solu-Medrol and put the patient on p.o. prednisone that is 20 mg daily for 5 days, then10 mg daily for 8 days and the patient also positive for discharge. Pratik Block MD
--- NOTE | 2018-11-18 06:48 | DS ---
HISTORY OF PRESENT ILLNESS: The patient is a 63-year-old female with history of hypertension, history of asthma, and arthritis. The patient was brought to the emergency room because the patient was complaining of shortness of breath that was worse and even though the patient was taking her current steroid medications. So, the patient was evaluated in the emergency room and was admitted, and the patient had consult with Dr. Casey, Pulmonary. PHYSICAL EXAMINATION: LUNGS: Inspiratory and expiratory wheezing and coarse breath sounds, and the patient was so much short of breath with minimal effort. The patient was started on medication including Solu-Medrol and Proventil nebulizer, and also the patient will be on montelukast. The patient has improved. today, the patient is doing well. The lungs were almost completely clear only at the base, and heart has regular rate and rhythm. So at this point, we changed IV Solu-Medrol to p.o., and we will consider discharging the patient today. Pratik Block MD
[2018-11-19] MEDS ORDERED: Ergocalciferol 50,000 Intl Units Cap PO SCH (10:00)
== END 2018-11-17 14:07 | disposition home or self-care (01) | DRG 191 ==
LOC: C.ER 08:58 → C.9E 13:50 → C.6T 14:38
PROVIDERS: ADMIT Specialist; ATTEND Specialist
DX: J44.1 Chronic obstructive pulmonary disease with (acute) exacerbation (principal); J45.901 Unspecified asthma with (acute) exacerbation; I10 Essential (primary) hypertension; E78.5 Hyperlipidemia, unspecified; E66.9 Obesity, unspecified; E11.9 Type 2 diabetes mellitus without complications; K21.9 Gastro-esophageal reflux disease without esophagitis; Z87.891 Personal history of nicotine dependence; Z68.36 Body mass index [BMI] 36.0-36.9, adult

== ENCOUNTER 2018-12-16 13:17 | Outpatient (CLI) | payer MEDICARE | END 2018-12-16 13:18 | disposition home or self-care (01) | LOC: C.RADIC 13:17 ==